=== PATIENT | male | born 1960 | race Caucasian/White ===

== ENCOUNTER → 2020-10-22 09:42 | Outpatient (BNVA) | payer BC, SELFPAY | PROVIDERS: PCP Internal Medicine Medical Oncology; Visit Provider Internal Medicine | DX: Z76.89 Persons encountering health services in other specified circumstances (principal) ==

== ENCOUNTER → 2020-12-10 10:21 | Outpatient (BNVA) | payer BC, SELFPAY | PROVIDERS: PCP Internal Medicine Medical Oncology; Referring Provider Internal Medicine Medical Oncology; Visit Provider Internal Medicine | DX: Z76.89 Persons encountering health services in other specified circumstances (principal) ==

== ENCOUNTER → 2020-12-18 09:44 | Outpatient (REF) | payer BC, SELFPAY | LOC: HO.SL 09:44 | PROVIDERS: Visit Provider Internal Medicine | DX: Z13.89 Encounter for screening for other disorder (principal) ==

== ENCOUNTER → 2021-02-05 10:34 | Outpatient (BNVA) | payer BC, SELFPAY | PROVIDERS: PCP Internal Medicine Medical Oncology; Visit Provider Internal Medicine | DX: G47.33 Obstructive sleep apnea (adult) (pediatric) (principal); R60.0 Localized edema; E66.9 Obesity, unspecified; Z79.899 Other long term (current) drug therapy | CPT/HCPCS: 95806 ==

== ENCOUNTER → 2021-05-04 15:16 | Outpatient (BNVA) | payer BC, SELFPAY | PROVIDERS: PCP Internal Medicine Medical Oncology; Visit Provider Internal Medicine ==

== ENCOUNTER → 2021-11-03 08:51 | Outpatient (BNVA) | payer BC, SELFPAY | PROVIDERS: PCP Internal Medicine Medical Oncology; Visit Provider Internal Medicine ==

== ENCOUNTER → 2022-11-24 09:47 | Outpatient (BNVA) | payer BC, SELFPAY | PROVIDERS: PCP Internal Medicine Medical Oncology; Visit Provider Internal Medicine | DX: G47.33 Obstructive sleep apnea (adult) (pediatric) (principal) ==

== ENCOUNTER → 2023-05-19 09:45 | Outpatient (BNVA) | payer BC, SELFPAY | PROVIDERS: PCP Internal Medicine Medical Oncology; Visit Provider Internal Medicine ==

== ENCOUNTER 2023-08-09 14:12 | Emergency (ER) | payer BC, SELFPAY ==
--- NOTE | ~2023-08-09 | CT_ITS ---
EXAMINATION: CT HEAD WITHOUT CONTRAST CLINICAL INFORMATION: Hypertension. Headache. COMPARISON: None available. TECHNIQUE: Contiguous axial imaging was performed from the skull base to vertex without intravenous administration of contrast. This CT examination was performed using dose optimization techniques as appropriate, variously including the following: *Automated exposure control *Adjustment of mA and/or kV according to patient size (this includes techniques or standardized protocols for targeted exams where dose is matched to indication/reason for exam; i.e. extremities or head) *Use of iterative reconstruction technique DLP: 634 mGy-cm FINDINGS: There is no evidence of an extra-axial collection. There is no evidence of intra-axial or extra-axial. The ventricles and extra-axial CSF spaces are appropriate. There is nonspecific periventricular white matter disease. No mass, mass effect or infarct. Review of bone windows is normal. Visualized paranasal sinuses, mastoid air cells and middle ears are clear. There is a right skull base soft tissue lipoma. CT/CT head/brain wo IV con IMPRESSION: No acute findings. Mild nonspecific periventricular white matter disease.
--- NOTE | 2023-08-09 14:17 | ED.GENADULT ---
HPI - General Adult General Chief complaint: General Medical Stated complaint: HBP 228/124 Time Seen by Provider: 08/09/23 14:42 Source: patient and family Mode of arrival: ambulatory Limitations: no limitations History of Present Illness HPI narrative: 63 year old male PMHx ALLISON, obesity, LE edema, HTN. Presents to the ER with asymptomatic hypertension. He states his PCP changed him to atenolol recently. He denies headache change in vision chest pain shortness of breath nausea vomiting diarrhea falls or injuries Related Data Home Medications Medication Instructions Recorded Confirmed acetaminophen 325 mg tablet 650 mg PO Q4H PRN pain 10/22/20 05/19/23 amlodipine 10 mg tablet 10 mg PO DAILY 10/22/20 05/19/23 clotrimazole-betamethasone 1 applic topical 10/22/20 05/19/23 %-0.05 % topical cream flu vacc [id number] 6mos up(PF) 60 ml IM 10/22/20 05/19/23 mcg(15 mcgx4)/0.5 mL IM syringe lisinopril 40 mg tablet 40 mg PO DAILY 10/22/20 05/19/23 timolol maleate 0.5 % eye drops 1 drp ophthalmic (eye) BID 10/22/20 05/19/23 triamterene 37.5 1 tab PO QAM 10/22/20 05/19/23 mg-hydrochlorothiazide 25 mg tablet varicella-zoster glycoE [id number] IM 10/22/20 05/19/23 adj(PF) 50 mcg/0.5 mL IM susp, kit Allergies Allergy/AdvReac Type Severity Reaction Status Date / Time No Known Allergies Allergy Verified 05/19/23 10:00 Review of Systems Review of Systems: Review of systems: General: Patient denies any fever chills recent illness or falls Musculoskeletal: Denies back pain or body aches or other injuries HEENT: denies headache, runny nose, ear pain Respiratory: denies shortness of breath, cough Cardiovascular: no chest pain or palpitations : denies dysuria, frequency Abdomen: no nausea vomiting denies abdominal pain Extremities: no swelling, no pain Skin: no diaphoresis Yes all other systems are reviewed and are negative PMFSH Past Medical History Medical History Leg edema Obesity (BMI 30-39.9) ALLISON (obstructive sleep apnea) Social History Social History Alcohol intake: never Patient Tobacco Use Status: Never used Tobacco Smoked in Last 30 Days: No Use of substances other than those prescribed or required for medical reasons: No Physical Exam ED Vital Signs: Vital Signs - 24 hr 08/09/23 14:18 08/09/23 14:54 Temperature 98.3 F Pulse Rate 54 54 Respiratory Rate 18 18 Blood Pressure 242/113 H 239/116 H Pulse Oximetry 96 95 Oxygen Delivery Method Room Air Room Air BMI result Body Mass Index 39.3 Neurological exam: CN II- XII tested. Patient is alert and oriented to person place and time. Patient has no dysphagia or dysarthia, denies good vision in all four vision kinsey no nystagmus on exam, good strength to upper and lower extremities with normal reflexes to brachioradialis, wrist, patella and achilles.? Negative romberg, good finger to nose and heel to rivas.?? General: Well-appearing well-nourished in no signs of distress HEENT: Normocephalic atraumatic? Neck: No signs of JVD, no masses no tenderness or lymphadenopathy Cardiovascular: Regular rate and rhythm Respiratory: Clear to auscultation bilaterally Abdomen: Soft nontender no masses Extremities: Normal pedal pulses no signs of edema Skin: Dry warm no rashes Back: No tenderness full ROM Course Course Course Narrative: RME: 63yo M w/PMHx ALLISON, obesity, LE edema, HTN, c/o elevated BP 228/124 noted at dentist office [employer]. Reports compliance w/BP meds, & took them this morning. Admits BP meds recently changed, Amlodipine & Lisinopril d/c'd & started on Atenolol. Reports mild MIRANDA. Takes 81 ASA daily. denies CP/SOB BP 243/113 in triage EKG, Labs ordered Full HPI, ROS and PE to be performed by primary ED provider. Reevaluation(s) Reevaluation #1: 1526 CT x-ray and labs are all unremarkable I explained this patient needs follow-up with his primary care doctor he is going to follow up tomorrow I will discharge the patient home at this time. Medical Decision Making Medical Decision Making [facility] Narrative: 63-year-old asymptomatic hypertension patient is in no pain he does note that his blood pressure was elevated he is going to see his dentist today and was found elevated. Patient admits to recent change in his blood pressure reading. Patient would benefit from pulling the character early states he can see the primary care doctor tomorrow due to her drinking CV consultative emergently today. Difficult with patient going home as long as his CT scan labs are all negative which were ordered in triage. Differential Diagnosis Differential Diagnoses: The differential diagnosis associated with the presentation includes Differential includes but is not limited to intracranial hemorrhage brain mass like true mild dehydration change of medications ACS though all appear less likely Lab Data [facility] Lab Attestation statement: I reviewed the patient's lab results. 08/09/23 14:36 08/09/23 14:36 Labs: Lab Results 08/09/23 Range/Units 14:36 WBC 10.4 (4.8-10.8) X10*3/uL RBC 5.28 (4.60-5.80) X10*6/uL Hgb 16.0 (14.0-18.0) g/dl Hct 46.3 (42.0-52.0) % MCV 87.7 (80.0-98.0) fL MCH 30.3 (27.0-33.0) pg MCHC 34.6 (31.0-36.0) g/dl RDW 13.9 (11.0-16.0) % Plt Count 252 (160-400) X10*3/uL MPV 9.7 (9.4-12.4) fL Immature Gran % (Auto) 0.4 (0.0-0.4) % Neut % (Auto) 70.9 (45-73) % Lymph % (Auto) 17.1 L (20-40) % [place] % (Auto) 9.7 (2-11) % Eos % (Auto) 1.5 (0-4) % Baso % (Auto) 0.4 (0-2) % Lymph # (Auto) 1.8 (1.2-4.9) X10*3/uL [place] # (Auto) 1.0 (0.1-1.2) X10*3/uL Eos # (Auto) 0.2 (0.0-0.4) X10*3/uL Baso # (Auto) 0.0 (0.0-0.2) X10*3/uL Abs Immat Gran (auto) 0.04 H (0.00-0.03) X10*3/uL Absolute Neuts (auto) 7.3 (2.0-8.3) x10*3/uL Absolute Nucleated RBC 0.000 (0.0-0.012) X10*3/uL Nucleated RBC % (auto) 0.0 (0.0-0.2) /100WBC PT 12.4 (11.1-13.3) SEC INR 1.0 (0.9-1.1) Sodium 140 (135-145) mmol/L Potassium 3.9 (3.3-5.1) mmol/L Chloride 105 (96-108) mmol/L Carbon Dioxide 28 (22-29) mmol/L Anion Gap 11 L (12-20) BUN 12 (9-16) mg/dL Creatinine 0.95 (0.5-1.4) mg/dL Estim Creat Clear Calc 85.6 Estimated GFR > 60 Random Glucose 88 (60-115) mg/dL Calcium 10.0 (8.4-10.2) mg/dL Magnesium 2.3 (1.6-2.6) mg/dL Total Bilirubin 0.6 (0.0-1.0) mg/dL Direct Bilirubin 0.2 (0.0-0.5) mg/dL AST 21 (5-37) U/L ALT 19 (0-40) U/L Alkaline Phosphatase 69 (39-117) U/L Troponin I High Sens 3.9 (<3.5-35.0) ng/L Total Protein 7.6 (6.5-8.0) g/dL Albumin 4.0 (3.5-5.0) g/dL Independent Interpretation I performed an independent interpretation of an: CT Scan Discharge Plan Discharge Clinical Impression: Asymptomatic hypertension Patient Disposition: Home, Self-Care Instructions: How to Take a Blood Pressure (ED), Chronic Hypertension (ED), DASH Eating Plan (ED) Additional Instructions: You were seen in the emergency department after being found have an elevated blood pressure. In the emergency department you underwent testing including blood work and a CT scan. Which were are all unremarkable. If you have worsening headache chest pain or any other concerns please do not hesitate to come back to emergency department. Prescriptions: No Action lisinopril 40 mg tablet 40 mg PO DAILY amlodipine 10 mg tablet 10 mg PO DAILY triamterene-hydrochlorothiazid 37.5-25 mg tablet 1 tab PO QAM clotrimazole-betamethasone 1-0.05 % cream topical Fluzone Quad [id number] (PF) 60 mcg (15 mcg x 4)/0.5 mL syringe IM Shingrix (PF) 50 mcg/0.5 mL suspension for reconstitution IM timolol maleate 0.5 % drops 1 drp ophthalmic (eye) BID acetaminophen 325 mg tablet 650 mg PO Q4H PRN (Reason: pain)
[2023-08-09 14:18] VITALS: BP 242/113; PULSE 54; RESP 18; TEMP 36.8; O2SAT 96; BMI 39.3
--- NOTE | 2023-08-09 14:20 | ECG_ITS ---
Test Reason : HIGH BP Blood Pressure : / mmHG Vent. Rate : 054 BPM Atrial Rate : 054 BPM P-R Int : 176 ms QRS Dur : 150 ms QT Int : 466 ms P-R-T Axes : 064 -61 007 degrees QTc Int : 441 ms Sinus bradycardia Right bundle branch block Left anterior fascicular block Bifascicular block Minimal voltage criteria for LVH, may be normal variant ( R in aVL ) Abnormal ECG No previous ECGs available Referred By: Dot Cardona Electronically Signed By:WOOD MICHAUD
[2023-08-09 14:40] LABS: MANUAL DIFF FLAG NO
[2023-08-09 14:42] LABS: Basophils Percent Auto 0.4 % (0-2); Eosinophils Absolute Auto 0.2 X10*3/uL (0.0-0.4); Eosinophils Percent Auto 1.5 % (0-4); Hematocrit 46.3 % (42.0-52.0); Imm Gran Abs Auto 0.04 X10*3/uL (0.00-0.03); Imm Gran Pct Auto 0.4 % (0.0-0.4); Lymphocytes Absolute Auto 1.8 X10*3/uL (1.2-4.9); Lymphocytes Percent Auto 17.1 % (20-40); Mean Corpuscular HGB Conc 34.6 g/dl (31.0-36.0); Mean Corpuscular Hemoglobin 30.3 pg (27.0-33.0); Mean Corpuscular Volume 87.7 fL (80.0-98.0); Mean Platelet Volume 9.7 fL (9.4-12.4); Monocytes Percent Auto 9.7 % (2-11); Neutrophils Absolute Auto 7.3 x10*3/uL (2.0-8.3); Neutrophils Percent Auto 70.9 % (45-73); Platelet Count 252 X10*3/uL (160-400); Red Blood Count 5.28 X10*6/uL (4.60-5.80); Red Cell Distribution Width 13.9 % (11.0-16.0); White Blood Count 10.4 X10*3/uL (4.8-10.8)
[2023-08-09 14:54] VITALS: BP 239/116; PULSE 54; RESP 18; O2SAT 95
[2023-08-09 14:58] LABS: Alanine Aminotransferase 19 U/L (0-40); Alkaline Phosphatase 69 U/L (39-117); Anion Gap 11 (12-20); Aspartate Amino Transferase 21 U/L (5-37); Bilirubin Direct 0.2 mg/dL (0.0-0.5); Bilirubin Total 0.6 mg/dL (0.0-1.0); Blood Urea Nitrogen 12 mg/dL (9-16); Carbon Dioxide 28 mmol/L (22-29); Chloride 105 mmol/L (96-108); Creatinine Clr Calc Pharmacy 85.6; Estimated Glomerular Filt Rate > 60; Glucose Random 88 mg/dL (60-115); Magnesium 2.3 mg/dL (1.6-2.6); Potassium 3.9 mmol/L (3.3-5.1); Sodium 140 mmol/L (135-145); Total Protein 7.6 g/dL (6.5-8.0)
[2023-08-09 15:01] LABS: Troponin-I High Sensitivity 3.9 ng/L (<3.5-35.0)
[2023-08-09 15:05] LABS: Prothrombin Time 12.4 SEC (11.1-13.3)
[2023-08-09 15:41] VITALS: BP 213/112; PULSE 54; RESP 18; O2SAT 97
== END 2023-08-09 15:47 | disposition home or self-care (01) ==
PROVIDERS: Physician Assistant; Emergency Provider Student in an Organized Health Care Education/Training Program; PCP Internal Medicine Medical Oncology
DX: I10 Essential (primary) hypertension (principal); R51.9 Headache, unspecified; R60.0 Localized edema; E66.9 Obesity, unspecified; Z68.39 Body mass index [BMI] 39.0-39.9, adult; Z79.899 Other long term (current) drug therapy
CPT/HCPCS: 36415; 70450; 80048; 80076; 83735; 84484; 85025; 85610; 93005; 99284

== ENCOUNTER 2023-12-12 13:48 | Outpatient (AMB) | payer BC, SELFPAY ==
--- NOTE | 2023-12-12 14:05 | A.OFFVIS_ITS ---
Intake Vital Signs 12/12/23 14:06 Height 5 ft 4 in Weight 231 lb BMI 39.6 BP 130/90 H Blood Pressure Location Lt brachial Position Sitting Pulse 94 Pulse Source Pulse Oximeter Pulse Oximetry (%) 94 Oxygen Delivery Method Room Air Intake Visit Reasons: mel Intake Note: pt is here for follow up and states he is using his cpap okay, doing well. 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 Allergies No Known Allergies Allergy (Verified 12/12/23 14:22) Medication List - Last Reconciled 12/12/23 by Heena Felipe MD acetaminophen 650 mg PO Q4H PRN amlodipine 10 mg PO DAILY atenolol 100 mg PO DAILY clotrimazole-betamethasone 1-0.05 % appl topical flu vacc [id number] 6mos up(PF) mL IM lisinopril 40 mg PO DAILY timolol maleate 0.5% 1 drp ophthalmic (eye) BID triamterene-hydrochlorothiazid 37.5-25 mg 1 tab PO QAM varicella-zoster [id number] (PF) 50 mcg/0.5 mL IM Do you need a note to return to daycare/school/sports/work: No HPI mel HPI Details Earl is 63 years old gentleman grossly obese with diagnosis of obstructive sleep apnea. .He is here for 6 months follow-up He reports that he is using CPAP every night for at least 6 hours per night,. And sleeps well He has no issue with the CPAP mask or the device. 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 He has not been able to do much walking or other exercise so he has put on a few lb of weight. [facility] Medical History Leg edema MEL (obstructive sleep apnea) Obesity (BMI 30-39.9) Social History Alcohol intake: never Patient Tobacco Use Status: Never used Tobacco Review of Systems Const All systems reviewed & are unremarkable except as noted in HPI and below Eyes Reports no additional complaints ENT Reports no additional complaints Card Denies chest pain, Denies irregular heart rhythm, Reports leg edema (Mild) and Denies dyspnea on exertion Resp Denies cough, Denies dyspnea on exertion and Denies wheezing GI Reports no additional complaints Reports no additional complaints Musc Reports no additional complaints Skin/Breast Reports system reviewed and no additional complaints, except as documented Neuro Reports no additional complaints Endo Reports no additional complaints Aller/Immun Reports no additional complaints and Denies wheezing Physical Exam Vital Signs: Last Vital Signs Pulse 94 12/12/23 14:06 BP 130/90 H 12/12/23 14:06 Pulse Ox 94 12/12/23 14:06 Oxygen Delivery Method Room Air 12/12/23 14:06 BMI result Body Mass Index 39.6 No interval weight loss is noted Const General: healthy appearing, comfortable and no acute distress Orientation/consciousness: patient oriented x3 HEENT Head: Yes normal to inspection General nose exam: No nasal polyps present and No nasal discharge present Face and sinus: Yes sinuses nontender Mouth: oropharynx normal Throat: Yes posterior oropharynx normal Eyes General: appearance normal, both eyes and all related structures Neck Neck: Yes normal visual inspection, Yes no lymphadenopathy, Yes trachea midline and Yes no JVD Thyroid: Thyroid normal Chest Chest palpation & inspection: normal inspection of the chest, normal palpation of entire chest wall and no tenderness Resp Effort & Inspection: normal respiratory effort Auscultation: clear to auscultation bilaterally, no crackles and no wheezes Percussion: percussion normal Cardio Palpation: normal PMI Rate: regular rate Rhythm: regular rhythm Heart sounds: no gallops and no murmurs Peripheral pulses: Peripheral pulses 2+ throughout GI Palpation (GI): Soft to palpation, nontender, No hepatosplenomegaly present and no masses Auscultation: normal bowel sounds Back/Spine/Pelvis Thoracic/Lumbar Spine: thoracic and lumbar spine normal to inspection Skin General skin exam: no rashes or lesions noted Neuro General: patient oriented x3 and no focal motor deficits Cranial nerves: Yes CN's II-XII intact bilaterally Extrem General: Yes normal to inspection, Yes no calf tenderness and Yes edema (1 + pitting edema of legs ) Psych Appearance: grossly normal and well kempt Speech and movement: Normal speech and movement present Results Reviewed Results Reviewed: Compliance report not printed but according to his verbal report he use it every night with full compliance. There is no air leak and he sleeps well. Assessment & Plan Assessment & Plan (1) Obesity (BMI 30-39.9): Comment: Talked to him , about weight . He is of simple mind , will not be able to loose much weight . 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 Restrict salt intake and calories, and start walking daily . (2) MEL (obstructive sleep apnea): Comment: HE HAS BEEN USING CPAP REGULARLY EVERY NIGHT AND SLEEPS WELL. HAS HAD NO ISSUES WITH THE MASK OR CPAP MACHINE. COMPLIANCE IS 97% AND HE IS BENEFITING,. Code(s): G47.33 - Obstructive sleep apnea (adult) (pediatric) Plan: ADVISED TO CONTINUE USING THE CPAP EVERY NIGHT AND USE IT AT LEAST FOR 6 HOURS. INSTRUCTED TO TIGHTEN THE STRAPS SO THAT THE MASk DOES NOT SLIP OFF. ORDER TO RENEW HIS SUPPLIES IS BEING SENT. WILL RECHECK HIM OF TO 6 MONTHS. Coding Level of Care Code Est Pt Level 3 (42390) Diagnoses Obesity (BMI 30-39.9) E66.9 MEL (obstructive sleep apnea) G47.33
[2023-12-12 14:06] VITALS: BP 130/90; PULSE 94; O2SAT 94; BMI 39.6
== END 2023-12-12 14:28 | disposition home or self-care (01) ==
PROVIDERS: PCP Internal Medicine Medical Oncology; Referring Provider Internal Medicine Medical Oncology; Visit Provider Internal Medicine
DX: E66.9 Obesity, unspecified (principal); G47.33 Obstructive sleep apnea (adult) (pediatric)
CPT/HCPCS: 99213

== ENCOUNTER → 2023-12-12 13:48 | Outpatient (BNVA) | payer BC, SELFPAY | PROVIDERS: PCP Internal Medicine Medical Oncology; Visit Provider Internal Medicine ==

== ENCOUNTER 2024-06-11 14:03 | Outpatient (AMB) | payer MEDICARE, SELFPAY ==
--- NOTE | 2024-06-11 14:07 | MHC.OFFVIS ---
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 Bob 64 years old gentleman, who used to work with an [email or web address] company is now retired , as his company moved to [place]. He is home mostly, somewhat sedentary, but keeps him busy in doing housework. He uses CPAP very regularly every night, except on some nights with he falls asleep before putting on the mask. He has no issue with the CPAP device are CPAP mask. He is aware of the fact that there is some air leak at night, and he tries to adjust the straps. [facility] Medical History Leg edema MEL (obstructive sleep apnea) Obesity (BMI 30-39.9) Social History Alcohol intake: never Patient Tobacco Use Status: Never used Tobacco Review of Systems Const All systems reviewed & are unremarkable except as noted in HPI and below Eyes Reports no additional complaints ENT Reports no additional complaints Card Denies chest pain, Denies irregular heart rhythm, Reports leg edema (Mild) and Denies dyspnea on exertion Resp Denies cough, Denies dyspnea on exertion and Denies wheezing GI Reports no additional complaints Reports no additional complaints Musc Reports no additional complaints Skin/Breast Reports system reviewed and no additional complaints, except as documented Neuro Reports no additional complaints Endo Reports no additional complaints Aller/Immun Reports no additional complaints and Denies wheezing Physical Exam No interval weight loss is noted Const General: healthy appearing, comfortable and no acute distress Orientation/consciousness: patient oriented x3 HEENT Head: Yes normal to inspection General nose exam: No nasal polyps present and No nasal discharge present Face and sinus: Yes sinuses nontender Mouth: oropharynx normal Throat: Yes posterior oropharynx normal Eyes General: appearance normal, both eyes and all related structures Neck Neck: Yes normal visual inspection, Yes no lymphadenopathy, Yes trachea midline and Yes no JVD Thyroid: Thyroid normal Chest Chest palpation & inspection: normal inspection of the chest, normal palpation of entire chest wall and no tenderness Resp Effort & Inspection: normal respiratory effort Auscultation: clear to auscultation bilaterally, no crackles and no wheezes Percussion: percussion normal Cardio Palpation: normal PMI Rate: regular rate Rhythm: regular rhythm Heart sounds: no gallops and no murmurs Peripheral pulses: Peripheral pulses 2+ throughout GI Palpation (GI): Soft to palpation, nontender, No hepatosplenomegaly present and no masses Auscultation: normal bowel sounds Back/Spine/Pelvis Thoracic/Lumbar Spine: thoracic and lumbar spine normal to inspection Skin General skin exam: no rashes or lesions noted Neuro General: patient oriented x3 and no focal motor deficits Cranial nerves: Yes CN's II-XII intact bilaterally Extrem General: Yes normal to inspection, Yes no calf tenderness and Yes edema (1 + pitting edema of legs ) Psych Appearance: grossly normal and well kempt Speech and movement: Normal speech and movement present Results Reviewed Results Reviewed: Compliance report is reviewed. He has used 28/30 nights, 93%. Average use it per night 6 hours 16 minutes. Pressure used 14-15 cm. There is moderate amount of air leak. Residual AHI 6.6 Assessment & Plan Assessment & Plan (1) Obesity (BMI 30-39.9): Comment: He remains grossly obese BMI= 41.5 OTHERWISE HEALTHY LOOKING. Code(s): E66.9 - Obesity, unspecified Category: Medical Plan: Discussed with him about the weight issue. Now that he is retired he should join an exercise program, he should aim to walk about 2 miles every day, Cut down the intake of carbohydrates in the diet , and weigh himself at least once a week. (2) MEL (obstructive sleep apnea): Comment: He is a known case of obstructive sleep apnea which is well treated with the use of CPAP. He has been very compliant all these years, has no issue with the use of CPAP device CPAP mask. Currently his compliance is okay but his residual AHI is, 6.6 which is little high and this seems to be related to air leak. Code(s): G47.33 - Obstructive sleep apnea (adult) (pediatric) Category: Medical Plan: Patient was educated about his I residual AHI. I think he needs to minimize the air leak issue. He is advised to tighten the straps . Make sure to get new supplies at least every 6. Coding Level of Care Code Est Pt Level 3 (82806) Diagnoses Obesity (BMI 30-39.9) E66.9 MEL (obstructive sleep apnea) G47.33
[2024-06-11 14:08] VITALS: BP 130/80; PULSE 59; O2SAT 94; BMI 40.5
== END 2024-06-11 14:19 | disposition home or self-care (01) ==
PROVIDERS: PCP Internal Medicine Medical Oncology; Visit Provider Internal Medicine
DX: E66.9 Obesity, unspecified (principal); G47.33 Obstructive sleep apnea (adult) (pediatric)
CPT/HCPCS: 99213

== ENCOUNTER → 2024-06-11 14:03 | Outpatient (BNVA) | payer MEDICARE, SELFPAY | PROVIDERS: PCP Internal Medicine Medical Oncology; Visit Provider Internal Medicine | DX: G47.33 Obstructive sleep apnea (adult) (pediatric) (principal); E66.9 Obesity, unspecified; Z68.41 Body mass index [BMI] 40.0-44.9, adult | CPT/HCPCS: 99212 ==

== ENCOUNTER 2024-12-18 10:21 | Outpatient (AMB) | payer MEDICARE, MEDICAID, SELFPAY ==
[2024-12-18 10:28] VITALS: BP 130/82; PULSE 53; O2SAT 95; BMI 40.1
--- NOTE | 2024-12-18 10:28 | MHC.OFFVIS ---
Vital Signs 12/18/24 10:28 Height 5 ft 4 in Weight 233 lb 11.04 oz BMI 40.1 BP 130/82 Blood Pressure Location Rt brachial Position Sitting Pulse 53 Pulse Source Pulse Oximeter Pulse Oximetry (%) 95 Oxygen Delivery Method Room Air Intake Visit Reasons: Obstructive sleep apnea Intake Note: pt is here for follow up of ALLISON, need supply order sent. Supervisor Photoengraving Required: No Allergies No Known Allergies Allergy (Verified 12/18/24 10:54) Medication List - Last Reconciled 12/18/24 by Heena Felipe MD acetaminophen 650 mg PO Q4H PRN amlodipine 10 mg PO DAILY atenolol 100 mg PO DAILY clotrimazole-betamethasone 1-0.05 % appl topical flu vacc [id number] 6mos up(PF) mL IM lisinopril 40 mg PO DAILY timolol maleate 0.5% 1 drp ophthalmic (eye) BID triamterene-hydrochlorothiazid 37.5-25 mg 1 tab PO QAM varicella-zoster [id number] (PF) 50 mcg/0.5 mL IM Do you need a note to return to daycare/school/sports/work: No HPI HPI Obstructive sleep apnea: Details: This 64 years old very pleasant retired gentleman is a case of morbid obesity and obstructive sleep apnea. .He is here for his 6 months follow-up He uses CPAP regularly every night. Missed 1 night in the whole month because he had some sinus congestion. He sleeps good at least for 6 hours every night. Denies daytime sleepiness. Still remains grossly overweight. Now that he is retired he has join the [employer] exercise program, and expected to lose some weight. [facility] Medical History Leg edema ALLISON (obstructive sleep apnea) Obesity (BMI 30-39.9) Social History Alcohol intake: never Patient Tobacco Use Status: Never used Tobacco Review of Systems Const All systems reviewed & are unremarkable except as noted in HPI and below Eyes Reports no additional complaints ENT Reports no additional complaints Card Denies chest pain, Denies irregular heart rhythm, Reports leg edema (Mild) and Denies dyspnea on exertion Resp Denies cough, Denies dyspnea on exertion and Denies wheezing GI Reports no additional complaints Reports no additional complaints Musc Reports no additional complaints Skin/Breast Reports system reviewed and no additional complaints, except as documented Neuro Reports no additional complaints Endo Reports no additional complaints Aller/Immun Reports no additional complaints and Denies wheezing Physical Exam Vital Signs: Last Vital Signs Pulse 53 12/18/24 10:28 BP 130/82 12/18/24 10:28 Pulse Ox 95 12/18/24 10:28 Oxygen Delivery Method Room Air 12/18/24 10:28 BMI result Body Mass Index 40.1 No interval weight loss is noted Const General: healthy appearing, comfortable and no acute distress Orientation/consciousness: patient oriented x3 HEENT Head: Yes normal to inspection General nose exam: No nasal polyps present and No nasal discharge present Face and sinus: Yes sinuses nontender Mouth: oropharynx normal Throat: Yes posterior oropharynx normal Eyes General: appearance normal, both eyes and all related structures Neck Neck: Yes normal visual inspection, Yes no lymphadenopathy, Yes trachea midline and Yes no JVD Thyroid: Thyroid normal Chest Chest palpation & inspection: normal inspection of the chest, normal palpation of entire chest wall and no tenderness Resp Effort & Inspection: normal respiratory effort Auscultation: clear to auscultation bilaterally, no crackles and no wheezes Percussion: percussion normal Cardio Palpation: normal PMI Rate: regular rate Rhythm: regular rhythm Heart sounds: no gallops and no murmurs Peripheral pulses: Peripheral pulses 2+ throughout GI Palpation (GI): Soft to palpation, nontender, No hepatosplenomegaly present and no masses Auscultation: normal bowel sounds Back/Spine/Pelvis Thoracic/Lumbar Spine: thoracic and lumbar spine normal to inspection Skin General skin exam: no rashes or lesions noted Neuro General: patient oriented x3 and no focal motor deficits Cranial nerves: Yes CN's II-XII intact bilaterally Extrem General: Yes normal to inspection, Yes no calf tenderness and Yes edema (1 + pitting edema of legs ) Psych Appearance: grossly normal and well kempt Speech and movement: Normal speech and movement present Results Reviewed Results Reviewed: Compliance report reviewed hand he has used 28/30 nights,. 93% Average use it per night 6 hours 0 minute. Pressure used 19 cm. There is not much air leak. Residual AHI is still 10.3 Assessment & Plan Assessment & Plan (1) Obesity (BMI 30-39.9): Comment: He remains grossly obese BMI= 40.1, OTHERWISE HEALTHY LOOKING. Code(s): E66.9 - Obesity, unspecified Category: Medical Plan: Discussed about his, weight, advised to reduce. the intake of calories Encouraged to do regular exercises at the [employer], and encouraged to lose at least 10 lb by next visit. (2) ALLISON (obstructive sleep apnea): Comment: He is a known case of obstructive sleep apnea which is well treated with the use of CPAP. He has been very compliant all these years, has no issue with the use of CPAP device CPAP mask. Currently his compliance is okay but his residual AHI is, 10.3 which is little high and this seems to be related to air leak. Code(s): G47.33 - Obstructive sleep apnea (adult) (pediatric) Category: Medical Plan: Advised to tighten the straps, . To minimize air leak Advised to keep on using the CPAP regularly. Revisit in 6 months. Coding Level of Care Code Est Pt Level 3 (16543) Diagnoses Obesity (BMI 30-39.9) E66.9 ALLISON (obstructive sleep apnea) G47.33
== END 2024-12-18 10:55 | disposition home or self-care (01) ==
PROVIDERS: PCP Internal Medicine Medical Oncology; Visit Provider Internal Medicine
DX: E66.9 Obesity, unspecified (principal); G47.33 Obstructive sleep apnea (adult) (pediatric)
CPT/HCPCS: 99213

== ENCOUNTER → 2024-12-18 10:21 | Outpatient (BNVA) | payer MEDICARE, SELFPAY | PROVIDERS: PCP Internal Medicine Medical Oncology; Visit Provider Internal Medicine | DX: G47.33 Obstructive sleep apnea (adult) (pediatric) (principal); E66.01 Morbid (severe) obesity due to excess calories; Z68.41 Body mass index [BMI] 40.0-44.9, adult | CPT/HCPCS: 99212 ==

== ENCOUNTER 2025-05-03 10:42 | Inpatient (IN) | payer MEDICARE, SELFPAY ==
[2025-05-03] VITALS (10 sets, daily range): BP systolic 123–183; BP diastolic 58–90; PULSE 42–55; RESP 15–24; TEMP 36.2–36.6; O2SAT 86–93; BMI 39.2
--- NOTE | ~2025-05-03 | MR_ITS ---
CLINICAL HISTORY: Right facial droop, dysarthria MR brain without contrast. COMPARISON: CT angiogram head and neck dated 05/03/25 at 13:14 EDT FINDINGS: No abnormal diffusion restriction in the brain parenchyma or extra-axial spaces. No evidence of mass, mass effect or midline shift. No intracranial hemorrhage or abnormal extra-axial fluid collection. No evidence of hydrocephalus. The basilar cisterns are patent. Cerebellar hemispheres and cerebellar vermis are normal. Fourth ventricle is normal. No brainstem abnormality is identified. Intracranial flow voids are patent. Trace amount of fluid present at the base of the mastoid air cells bilaterally. Paranasal sinuses are clear. IMPRESSION: 1. No acute intracranial findings. This document has been electronically signed by: Bryan Singleton MD on 05/03/2025 18:16:41
--- NOTE | ~2025-05-03 | US_ITS ---
CLINICAL HISTORY: + swelling, hypoxia Venous duplex ultrasound bilateral lower extremity COMPARISON: None FINDINGS: The visualized deep veins are fully compressible with normal Doppler color flow and spectral tracings. No popliteal cyst. IMPRESSION: 1. Negative for bilateral lower extremity deep vein thrombosis. This document has been electronically signed by: Bryan Singleton MD on 05/03/2025 16:54:20
--- NOTE | ~2025-05-03 | XR_ITS ---
EXAMINATION: XR CHEST CLINICAL INFORMATION: SOB COMPARISON: None available. TECHNIQUE: 2 views of the chest were obtained. FINDINGS: Cardiac silhouette is mildly enlarged. Pulmonary vasculature is mildly prominent, more on the right. Findings linear density projecting from the right hilum likely represents minimal atelectasis. There is also mild fullness of the right hilum. Linear densities in the lateral mid third to lower third left lung zone are also present, likely subsegmental atelectasis. Posterior costophrenic angles are blunted. Thoracic spine demonstrate multilevel degenerative disc disease with disc space narrowing and osteophytes. XR/XR chest 2V IMPRESSION: Mild cardiomegaly and pulmonary vascular congestion with trace pleural effusions. Linear subsegmental atelectasis. Electronically signed by: Nikko Woodward MD 05/03/2025 12:34 PM EDT
--- NOTE | ~2025-05-03 | CT_ITS ---
EXAMINATION: CT ANGIOGRAM HEAD AND NECK CLINICAL INFORMATION: Right-sided facial droop and slurred speech. COMPARISON: None available. TECHNIQUE: Noncontrast axial imaging of the head was performed. This was followed by test bolus sequences and head and neck intravenous bolus administration 70 mL of Omnipaque 350. Helical imaging was performed in the axial plane from the aortic arch to the skull vertex. The data was processed at the nuclear medicine pet ct technologist's workstation for generation of MIP sequences. Angled MIPs and volume rendered reformatted images were also generated at an offline 3D workstation. Stenoses are assessed in accordance with NASCET criteria unless otherwise indicated. This CT examination was performed using dose optimization techniques as appropriate, variously including the following: *Automated exposure control *Adjustment of mA and/or kV according to patient size (this includes techniques or standardized protocols for targeted exams where dose is matched to indication/reason for exam; i.e. extremities or head) *Use of iterative reconstruction technique FINDINGS: NONCONTRAST HEAD CT: There is no evidence of intracranial hemorrhage or extra-axial fluid collection. There is no mass effect, or edema. No CT evidence of acute territorial infarct. Ventricles, sulci, and cisterns are normal in size and configuration for patient age. No hydrocephalus. No midline shift. No significant white matter abnormalities. Globes and orbital contents image normally. No extracranial soft tissue abnormalities. The paranasal sinuses, mastoid air cells, and tympanic cavities are normally aerated. Cerumen impaction in both EACs. No suspicious bony abnormalities. NECK CTA: -AORTIC ARCH: Normal in caliber. Mild atheromatous calcification. Three-vessel branching pattern. -GREAT VESSEL ORIGINS: Widely patent. No stenosis. -RIGHT COMMON CAROTID ARTERY: Normal in course and caliber to the level of the bifurcation. -CERVICAL RIGHT INTERNAL CAROTID ARTERY: Normal opacification without focal stenosis or occlusion. -LEFT COMMON CAROTID ARTERY: Normal in course and caliber to the level of the bifurcation. -CERVICAL LEFT INTERNAL CAROTID ARTERY: Normal opacification without focal stenosis or occlusion. -CERVICAL RIGHT VERTEBRAL ARTERY: Normal origin. Normal in course and caliber into the skull base. -CERVICAL LEFT VERTEBRAL ARTERY: Mildly dominant. Normal origin. Normal in course and caliber into the skull base. OTHER, SOFT TISSUES: -No lymphadenopathy or mass. No abnormal fluid collection or soft tissue swelling. -Normal thyroid. -Imaged superior mediastinal structures normal. -Imaged lung apices demonstrate a small left and tiny right pleural effusion. There is mosaic attenuation of the lung parenchyma, consistent with mild interstitial pulmonary edema and expiratory state. CTA OF THE BRAIN: INTRACRANIAL INTERNAL CAROTID ARTERIES: -Calcific atherosclerotic disease of the left intracranial ICA without significant stenosis or aneurysm. -There is a moderate grade stenosis in the ophthalmic segment right ICA due to calcified plaque (series 10, image 343). No aneurysm or additional stenosis. -RIGHT ANTERIOR CEREBRAL ARTERY: Normal A1 segment.. Normal arborization of the distal segments. -LEFT ANTERIOR CEREBRAL ARTERY: Normal A1 segment.. Normal arborization of the distal segments. -ANTERIOR COMMUNICATING ARTERY: Normal. -RIGHT MIDDLE CEREBRAL ARTERY: Normal M1 segment of the MCA without focal stenosis or occlusion. Normal bifurcation. Normal arborization of the distal segments. -LEFT MIDDLE CEREBRAL ARTERY: Normal M1 segment of the MCA without focal stenosis or occlusion. Normal bifurcation. Normal arborization of the distal segments. -RIGHT VERTEBRAL ARTERY V4: Normal in course and caliber. -LEFT VERTEBRAL ARTERY V4: Normal in course and caliber. -BASILAR ARTERY: Normal without focal stenosis or occlusion. Normal appearance of the proximal superior cerebellar arteries. Normal basilar tip. -RIGHT POSTERIOR CEREBRAL ARTERY: Normal P1 segment. Normal opacification of the distal POTTERY STRIPER segments. -LEFT POSTERIOR CEREBRAL ARTERY: Normal P1 segment. Normal opacification of the distal POTTERY STRIPER segments. -POSTERIOR COMMUNICATING ARTERIES: Diminutive and not well seen bilaterally. Normal opacification of the superior sagittal, straight, transverse, and sigmoid sinuses. No venous thrombosis. No space-occupying hemorrhage or definite evolving infarct. CT/CT angio head neck IMPRESSION: NONCONTRAST HEAD CT: 1. No intracranial hemorrhage or mass effect. No CT evidence of acute territorial infarct. CTA NECK: 1. No evidence of significant stenosis, occlusion, dissection, or aneurysm in the major cervical arterial vasculature. 2. There is a small left and tiny right pleural effusion in the imaged thorax. There are findings in the imaged lungs suggesting interstitial pulmonary edema. CTA HEAD: 1. No evidence of high-grade stenosis, occlusion, dissection, or aneurysm in the major intracranial arterial vasculature. 2. There is an approximate 50% stenosis of the right ICA ophthalmic segment due to calcified plaque. 3. Patent cortical and dural venous sinuses. Electronically signed by: Thomas Solis MD 05/03/2025 02:19 PM EDT
--- NOTE | 2025-05-03 07:00 | CA_ITS ---
Transthoracic Echocardiogram Patient (Last, First, Middle): Earl Bob M Gender: Male Date of : 1960 Age: 64 Procedure Date: 05/06/2025 Procedure Type: Transthoracic Echocardiogram [place] [facility] [place]: 167.64 cm Weight: 109.77 kg BSA: 2.17 m2 Heart Rate: bpm BP: 164 / 92 mmHg Ornamental Machine Operator: JORGE Galeano MD: Reagan MARTINEZ Mineral Engineer: Audie Harman MD Symptoms: New onset CHF, ?CVA Study Quality: Adequate ECG Rhythm: Sinus Conclusions: - 1. Normal LV ejection fraction with impaired relaxation filling pattern 2. Mildly dilated left atrium next 3. Possible PFO present 4. Normal RV systolic pressure with mildly elevated right atrial pressures 5. No gross pericardial effusion Findings Left Ventricle Normal left ventricular size and systolic function. There is mildly increased left ventricular wall thickness. The visually estimated ejection fraction is between 65-70%. Spectral Doppler is indicative of an impaired relaxation filling pattern. E/E prime ratio is between 8 and 15 consistent with indeterminate filling pressures. Right Ventricle Normal right ventricular cavity size and systolic function. Atria The left atrium is mildly dilated. Bubble study performed. by color Doppler there appears to be possible left to right shunt on subcostal views. Consider MAYE. The right atrium is likely dilated. Aortic Valve Normal aortic valve structure and function. There is no aortic valve stenosis. There is no aortic valve regurgitation. Mitral Valve Normal mitral valve structure and function. There is no mitral valve regurgitation. There is no mitral valve stenosis. Pulmonic Valve The pulmonic valve was not well visualized. Tricuspid Valve Likely normal tricuspid valve structure and function. There is mild tricuspid valve regurgitation. Mildly elevated right atrial pressure. There is no evidence of pulmonary hypertension. Great Vessels All visible segments of the aorta are normal in size. The pulmonary artery was not well visualized. Venous The inferior vena cava is moderately dilated and collapses greater than 50% with inspiration. Pericardium/Pleural There is no evidence of pericardial effusion. Prior Study Comparison no prior study done in the last 5 years for comparison Recommendations, Care & Conclusions Consider a MAYE if clinically appropriate. Measurements 2D Linear Measurements IVSd: 1.27 0.6-0.9/0.6-1.0 cm LVIDd: 5.36 3.9-5.3/4.2-5.9 cm LVIDd Index: 2.47 2.4-3.2/2.2-3.1 cm/m2 LVIDs: 2.95 2.0-3.6 cm LVPWd: 1.42 0.7-1.1 cm LA Diam: 3.80 2.7-3.8/3.0-4.0 cm LAIDs Index: 1.75 1.5-2.3 cm/m2 LV Mass: 382.38 67-162/88-224 g LV Mass Index: 176.21 43-95/49-115 g/m2 LVOT Diam: 2.10 3.0+(-)1.3 cm 2D Systolic Function EF 4C: 67.90 >55% EF 2C: 72.40 >55% EF BiP: 70.40 >55% Mitral Valve MV Pk E: 0.92 MV PK A: 1.05 MV Decel Time: 241.00 E/A: 0.90 E'Lateral: 8.38 E'Medial: 5.55 E/E' Med: 16.60 E/E' Lat: 11.00 PHT: 70.00 MVA PHT: 3.14 Decel Leslie: 3.84 Aortic Valve AoV Pk Richy: 2.55 AoV Mn Richy: 1.74 AoV VTI: 0.57 AoV Pk Grad: 26.00 Aov Mn Grad: 14.00 CLIFF Cont.VTI: 1.87 LVOT LVOT Pk Richy: 1.51 LVOT Mn Richy: 1.02 LVOT VTI: 0.31 LVOT Pk Grad: 9.00 LVOT Mn Grad: 5.00 LVOT Diam: 2.10 LVOT Area: 3.46 Diastolic Function MV Pk E: 0.92 MV Pk A: 1.05 E/A: 0.90 E'Medial: 5.55 E/E' Med: 16.60 E' Laterial: 8.38 E/E' Lat: 11.00 Right Ventricle TAPSE (mm): 30.00 TVS' Richy: 16.80 Tricuspid Valve TR Pk Richy: 2.55 TR Pk Grad: 26.00 RA Press: 8.00 RVSP: 34.00 Great Vessels Aorta Sinus of Valsalva: 3.00 2.0-3.5 cm Ao Asc: 3.50 2.1-3.4 cm Ao Arch: 3.10 Pulmonary Valve PV Pk Richy: 1.10 Peak PV Grad: 5.00 Updated in Other Vendor System with Status of Final Audie Harman MD electronically signed on 05/06/2025 12:19:28 PM with status of Final
--- NOTE | 2025-05-03 11:01 | ED_ITS ---
HPI - General Adult General Chief complaint: General Medical Stated complaint: ? Stroke Time Seen by Provider: 05/03/25 11:00 History of Present Illness ED Provider: Dr. Pulido HPI narrative: 64 y/o M patient; PMH ALLISON on CPAP, HTN, obesity; presents from PCP office with report of increased shortness of breath and increased lower extremity edema for a while . The patient states while at his PCP office he was noticed to have significantly slurred speech and a new facial droop also for a while . He lives in a house full of people but states it had not been noticed. He denies arm/leg weakness/numbness/tingling. The patient otherwise denies: fever or chills, cough/congestion, chest pain, nausea/vomiting, abdominal pain, syncope. He denies any smoking history. He denies drinking alcohol. He denies any falls or trauma. Contrary to triage note patient is not on blood thinners, he does take a baby aspirin. Related Data Home Medications ?Medication ?Instructions ?Recorded ?Confirmed acetaminophen 325 mg tablet 650 mg PO Q4H PRN pain 10/22/20 12/18/24 amlodipine 10 mg tablet 10 mg PO DAILY 10/22/20 12/18/24 clotrimazole-betamethasone 1 applic topical 10/22/20 06/11/24 %-0.05 % topical cream flu vacc [id number] 6mos up(PF) 60 ml IM 10/22/20 06/11/24 mcg(15 mcgx4)/0.5 mL IM syringe lisinopril 40 mg tablet 40 mg PO DAILY 10/22/20 12/18/24 timolol maleate 0.5 % eye drops 1 drp ophthalmic (eye) BID 10/22/20 12/18/24 triamterene 37.5 1 tab PO QAM 10/22/20 12/18/24 mg-hydrochlorothiazide 25 mg tablet varicella-zoster glycoE [id number] IM 10/22/20 06/11/24 adj(PF) 50 mcg/0.5 mL IM susp, kit atenolol 100 mg tablet 100 mg PO DAILY 12/12/23 12/18/24 Allergies Allergy/AdvReac Type Severity Reaction Status Date / Time No Known Allergies Allergy Verified 05/03/25 10:49 Review of Systems 2 Review of Systems: Yes all other systems are reviewed and are negative Neurologic: Denies Sensory deficit (Neuro) [facility] Past Medical History Attestation statement: The following information was validated with the patient. Source: old records reviewed Medical History Leg edema ALLISON (obstructive sleep apnea) Obesity (BMI 30-39.9) Social History Social History Alcohol intake: never Patient Tobacco Use Status: Never used Tobacco Smoked in Last 30 Days: No Use of substances other than those prescribed or required for medical reasons: No Advance Directives: No Advance Directives Information Provided: Yes Do you have a plan to hurt others: No Plan Physical Exam ED Vital Signs: Vital Signs - 24 hr 05/03/25 10:48 05/03/25 10:49 05/03/25 10:58 Temperature 97.8 F Pulse Rate 49 L 49 L Respiratory Rate 24 H 15 Blood Pressure 167/83 H 123/58 L Pulse Oximetry 86 L 93 93 Oxygen Delivery Method Room Air Nasal Cannula Nasal Cannula Oxygen Flow Rate 2 2 05/03/25 14:43 Temperature Pulse Rate Respiratory Rate Blood Pressure 183/89 H Pulse Oximetry Oxygen Delivery Method Oxygen Flow Rate BMI result Body Mass Index 39.2 Patient is afebrile and hemodynamically stable. He was noted to be hypoxic to 86% on RA and improved on 2L NC. Const General: cooperative Orientation/consciousness: patient oriented x3 HENMT Head: Yes normal to inspection and Yes atraumatic Eyes General: appearance normal, both eyes and all related structures Pupils: Equal, round and reactive pupils present EOM: EOMs intact bilaterally Neck Neck: Yes normal visual inspection, Yes full ROM, Yes supple and No tender Chest Chest palpation & inspection: normal inspection of the chest and normal palpation of entire chest wall Resp Effort & Inspection: normal respiratory effort, able to speak in complete sentences, no cough and no respiratory distress Auscultation: clear to auscultation bilaterally Cardio Rate: regular rate Rhythm: regular rhythm Peripheral pulses: Peripheral pulses 2+ throughout GI Inspection: Yes normal to inspection, No Abdominal wall edema and No distended Palpation (GI): Soft to palpation, not firm, nontender, no guarding and not rigid Auscultation: normal bowel sounds Back/Spine/Pelvis Back: No back tenderness Neuro Other: + Right sided facial droop Slurred speech General: patient oriented x3 and gait normal Cranial nerves: Yes Equal, round and reactive pupils present, Yes Bilaterally intact EOM present and Yes Nystagmus not present Cognition (Neuro): normal cognition Motor exam (neuro): 5/5 motor strength present throughout Sensory Exam: No Sensory deficit (Neuro) Coordination: [id number] test normal, [id number] test normal and Normal rapid alternating movements of the distal upper extremity present (Neuro) Extrem Other: 2 - 3+ bilateral lower extremity edema Course Course Course Narrative: Patient is afebrile and hemodynamically stable. Providing 2L NC for mild hypoxia on RA. Will obtain EKG, CXR, and laboratory studies. Will obtain CTA Head/Neck due to suspect CVA of unknown timeline. Patient is outside window for TNK due to unknown onset of action. NIHSS is 3 for mild to moderate dysarthria and partial paralysis face. I suspect patient will require admission for CVA w/u. Labs reviewed. No significant anemia or leukocytosis. VBG is without acidosis. Troponin is flat. BNP is minimally elevated. No prior for comparison. COVID/Flu/RSV negative. CXR reviewed. Noted mild cardiomegaly and pulmonary vascular congestion with trace pleural effusions. Linear subsegmental atelectasis. CTA Head/Neck unremarkable for acute process. Hypoxia could be due to undiagnosed mild CHF with elevated BNP, lower extremity edema, and signs of pulmonary vascular congestion. Will trial a dose of Lasix 20mg IV. Plan: Admit to hospitalist for MRI Brain and hypoxia evaluation Condition: Stable Medications Administered Discontinued Medications Generic Name Dose Route Start Last Admin Trade Name Leslie PRN Reason Stop Dose Admin Furosemide 20 mg 05/03/25 14:33 05/03/25 14:43 Furosemide 20 Mg/2 Ml Vial IVPUSH 05/03/25 14:34 20 mg ONCE ONE Administration Protocol Iohexol 70 ml 05/03/25 13:39 05/03/25 13:39 Iohexol 350 Mg/Ml 100 Ml Infus..Btl IV 05/03/25 13:40 70 ml ONCE ONE Administration Medical Decision Making Lab Data 05/03/25 11:29 05/03/25 11:29 Labs: Lab Results 05/03/25 05/03/25 05/03/25 Range/Units 11:29 11:36 11:47 WBC 10.9 H (4.8-10.8) X10*3/uL RBC 5.09 (4.60-5.80) X10*6/uL Hgb 15.6 (14.0-18.0) g/dl Hct 44.7 (42.0-52.0) % MCV 87.8 (80.0-98.0) fL MCH 30.6 (27.0-33.0) pg MCHC 34.9 (31.0-36.0) g/dl RDW 14.9 (11.0-16.0) % Plt Count 228 (160-400) X10*3/uL MPV 9.3 L (9.4-12.4) fL Immature Gran % (Auto) 0.4 (0.0-0.4) % Neut % (Auto) 77.7 H (45-73) % Lymph % (Auto) 11.7 L (20-40) % [place] % (Auto) 8.6 (2-11) % Eos % (Auto) 1.4 (0-4) % Baso % (Auto) 0.2 (0-2) % Lymph # (Auto) 1.3 (1.2-4.9) X10*3/uL [place] # (Auto) 0.9 (0.1-1.2) X10*3/uL Eos # (Auto) 0.2 (0.0-0.4) X10*3/uL Baso # (Auto) 0.0 (0.0-0.2) X10*3/uL Abs Immat Gran (auto) 0.04 H (0.00-0.03) X10*3/uL Absolute Neuts (auto) 8.5 H (2.0-8.3) x10*3/uL Absolute Nucleated RBC 0.000 (0.0-0.012) X10*3/uL Nucleated RBC % (auto) 0.0 (0.0-0.2) /100WBC PT 12.2 (10.9-12.4) SEC INR 1.1 (0.9-1.1) VBG pH 7.36 (7.32-7.43) VBG pCO2 56 mmHg VBG pO2 82 mmHg VBG HCO3 32 H (22-26) mmol/L VBG O2 Saturation 95.0 % VBG Base Excess 5.5 mmol/L Sodium 140 (135-145) mmol/L Potassium 4.1 (3.3-5.1) mmol/L Chloride 101 (96-108) mmol/L Carbon Dioxide 31 H (22-29) mmol/L Anion Gap 12 (12-20) BUN 19 H (9-16) mg/dL Creatinine 0.93 (0.5-1.4) mg/dL Estim Creat Clear Calc 92.2 Estimated GFR > 60 Random Glucose 104 (60-115) mg/dL Lactic Acid 0.5 (0.5-2.0) mmol/L Calcium 9.7 (8.4-10.2) mg/dL Total Bilirubin 0.7 (0.0-1.0) mg/dL Direct Bilirubin 0.2 (0.0-0.5) mg/dL AST 31 (5-37) U/L ALT 25 (0-40) U/L Alkaline Phosphatase 78 (39-117) U/L Troponin I High Sens 3.8 (<3.5-35.0) ng/L B-Natriuretic Peptide 130 H (<100) pg/mL Total Protein 8.2 H (6.5-8.0) g/dL Albumin 4.4 (3.5-5.0) g/dL Lipase 26 (8-78) U/L Influenza Type A (PCR) NEGATIVE (Negative) Influenza Type B (PCR) NEGATIVE (Negative) RSV RNA Qual (PCR) NEGATIVE (Negative) SARS-CoV-2 RNA (RT-PCR) NEGATIVE (Negative) Independent Interpretation I performed an independent interpretation of an: EKG Interpretation: SB 51BPM with + RBBB, + LAFB. Compared to prior from Jul 2023 no significant abnormalities. Radiology Impression Discussion of test interpretation with radiology: I have reviewed the radiologist's reading. Radiologist Impression: EXAMINATION: XR CHEST CLINICAL INFORMATION: SOB COMPARISON: None available. TECHNIQUE: 2 views of the chest were obtained. FINDINGS: Cardiac silhouette is mildly enlarged. Pulmonary vasculature is mildly prominent, more on the right. Findings linear density projecting from the right hilum likely represents minimal atelectasis. There is also mild fullness of the right hilum. Linear densities in the lateral mid third to lower third left lung zone are also present, likely subsegmental atelectasis. Posterior costophrenic angles are blunted. Thoracic spine demonstrate multilevel degenerative disc disease with disc space narrowing and osteophytes. XR/XR chest 2V IMPRESSION: Mild cardiomegaly and pulmonary vascular congestion with trace pleural effusions. Linear subsegmental atelectasis. Electronically signed by: Nikko Woodward MD 05/03/2025 12:34 PM EDT RP Report Number: [id number]: Total DLP = 1481.00 mGy-cm EXAMINATION: CT ANGIOGRAM HEAD AND NECK CLINICAL INFORMATION: Right-sided facial droop and slurred speech. COMPARISON: None available. TECHNIQUE: Noncontrast axial imaging of the head was performed. This was followed by test bolus sequences and head and neck intravenous bolus administration 70 mL of Omnipaque 350. Helical imaging was performed in the axial plane from the aortic arch to the skull vertex. The data was processed at the distribution engineering technologist's workstation for generation of MIP sequences. Angled MIPs and volume rendered reformatted images were also generated at an offline 3D workstation. Stenoses are assessed in accordance with NASCET criteria unless otherwise indicated. This CT examination was performed using dose optimization techniques as appropriate, variously including the following: *Automated exposure control *Adjustment of mA and/or kV according to patient size (this includes techniques or standardized protocols for targeted exams where dose is matched to indication/reason for exam; i.e. extremities or head) *Use of iterative reconstruction technique FINDINGS: NONCONTRAST HEAD CT: There is no evidence of intracranial hemorrhage or extra-axial fluid collection. There is no mass effect, or edema. No CT evidence of acute territorial infarct. Ventricles, sulci, and cisterns are normal in size and configuration for patient age. No hydrocephalus. No midline shift. No significant white matter abnormalities. Globes and orbital contents image normally. No extracranial soft tissue abnormalities. The paranasal sinuses, mastoid air cells, and tympanic cavities are normally aerated. Cerumen impaction in both EACs. No suspicious bony abnormalities. NECK CTA: -AORTIC ARCH: Normal in caliber. Mild atheromatous calcification. Three-vessel branching pattern. -GREAT VESSEL ORIGINS: Widely patent. No stenosis. -RIGHT COMMON CAROTID ARTERY: Normal in course and caliber to the level of the bifurcation. -CERVICAL RIGHT INTERNAL CAROTID ARTERY: Normal opacification without focal stenosis or occlusion. -LEFT COMMON CAROTID ARTERY: Normal in course and caliber to the level of the bifurcation. -CERVICAL LEFT INTERNAL CAROTID ARTERY: Normal opacification without focal stenosis or occlusion. -CERVICAL RIGHT VERTEBRAL ARTERY: Normal origin. Normal in course and caliber into the skull base. -CERVICAL LEFT VERTEBRAL ARTERY: Mildly dominant. Normal origin. Normal in course and caliber into the skull base. OTHER, SOFT TISSUES: -No lymphadenopathy or mass. No abnormal fluid collection or soft tissue swelling. -Normal thyroid. -Imaged superior mediastinal structures normal. -Imaged lung apices demonstrate a small left and tiny right pleural effusion. There is mosaic attenuation of the lung parenchyma, consistent with mild interstitial pulmonary edema and expiratory state. CTA OF THE BRAIN: INTRACRANIAL INTERNAL CAROTID ARTERIES: -Calcific atherosclerotic disease of the left intracranial ICA without significant stenosis or aneurysm. -There is a moderate grade stenosis in the ophthalmic segment right ICA due to calcified plaque (series 10, image 343). No aneurysm or additional stenosis. -RIGHT ANTERIOR CEREBRAL ARTERY: Normal A1 segment.. Normal arborization of the distal segments. -LEFT ANTERIOR CEREBRAL ARTERY: Normal A1 segment.. Normal arborization of the distal segments. -ANTERIOR COMMUNICATING ARTERY: Normal. -RIGHT MIDDLE CEREBRAL ARTERY: Normal M1 segment of the MCA without focal stenosis or occlusion. Normal bifurcation. Normal arborization of the distal segments. -LEFT MIDDLE CEREBRAL ARTERY: Normal M1 segment of the MCA without focal stenosis or occlusion. Normal bifurcation. Normal arborization of the distal segments. -RIGHT VERTEBRAL ARTERY V4: Normal in course and caliber. -LEFT VERTEBRAL ARTERY V4: Normal in course and caliber. -BASILAR ARTERY: Normal without focal stenosis or occlusion. Normal appearance of the proximal superior cerebellar arteries. Normal basilar tip. -RIGHT POSTERIOR CEREBRAL ARTERY: Normal P1 segment. Normal opacification of the distal BOOKKEEPING TEACHER segments. -LEFT POSTERIOR CEREBRAL ARTERY: Normal P1 segment. Normal opacification of the distal BOOKKEEPING TEACHER segments. -POSTERIOR COMMUNICATING ARTERIES: Diminutive and not well seen bilaterally. Normal opacification of the superior sagittal, straight, transverse, and sigmoid sinuses. No venous thrombosis. No space-occupying hemorrhage or definite evolving infarct. CT/CT angio head neck IMPRESSION: NONCONTRAST HEAD CT: 1. No intracranial hemorrhage or mass effect. No CT evidence of acute territorial infarct. CTA NECK: 1. No evidence of significant stenosis, occlusion, dissection, or aneurysm in the major cervical arterial vasculature. 2. There is a small left and tiny right pleural effusion in the imaged thorax. There are findings in the imaged lungs suggesting interstitial pulmonary edema. CTA HEAD: 1. No evidence of high-grade stenosis, occlusion, dissection, or aneurysm in the major intracranial arterial vasculature. 2. There is an approximate 50% stenosis of the right ICA ophthalmic segment due to calcified plaque. 3. Patent cortical and dural venous sinuses. Electronically signed by: Thomas Solis MD 05/03/2025 02:19 PM EDT Discharge Plan Discharge Clinical Impression: Dysarthria, Facial droop, Hypoxia Patient Disposition: Admitted As Inpatient Print Language: Other
--- NOTE | 2025-05-03 11:04 | PC.NURSE ---
Pt comes to ED today from PCP office for concerns of R sided facial droop, intermittent garbled speech, and bilat lower extremity swelling. Pt reports these symptoms have been present for about 2 weeks and started around the same time. Denies and visual changes, difficulty swallowing/eating, or SOB. Pt with noted low O2 sats in Triage and requires supplemental O2. Sats are now at 94% on 2L O2 via NC. Pts speech is garbled and R sided droop to mouth visible. Pt is A&Ox3 and denies any pain at this time. Awaiting ED provider.
--- NOTE | 2025-05-03 11:05 | ECG_ITS ---
Test Reason : weakness Blood Pressure : */* mmHG Vent. Rate : 51 BPM Atrial Rate : 51 BPM P-R Int : 170 ms QRS Dur : 162 ms QT Int : 498 ms P-R-T Axes : 70 -54 16 degrees QTcB Int : 458 ms Sinus bradycardia Right bundle branch block Left anterior fascicular block Bifascicular block Abnormal ECG When compared with ECG of 09-Aug-2023 14:27, No significant change was found Referred By: Ruby Pulido Electronically Signed By: SNEHAL MILLARD
[2025-05-03 11:35] LABS: MANUAL DIFF FLAG NO
[2025-05-03 11:38] LABS: Basophils Percent Auto 0.2 % (0-2); Eosinophils Absolute Auto 0.2 X10*3/uL (0.0-0.4); Eosinophils Percent Auto 1.4 % (0-4); Hematocrit 44.7 % (42.0-52.0); Hemoglobin 15.6 g/dl (14.0-18.0); Imm Gran Abs Auto 0.04 X10*3/uL (0.00-0.03); Imm Gran Pct Auto 0.4 % (0.0-0.4); Lymphocytes Absolute Auto 1.3 X10*3/uL (1.2-4.9); Lymphocytes Percent Auto 11.7 % (20-40); Mean Corpuscular HGB Conc 34.9 g/dl (31.0-36.0); Mean Corpuscular Hemoglobin 30.6 pg (27.0-33.0); Mean Corpuscular Volume 87.8 fL (80.0-98.0); Mean Platelet Volume 9.3 fL (9.4-12.4); Monocytes Absolute Auto 0.9 X10*3/uL (0.1-1.2); Monocytes Percent Auto 8.6 % (2-11); Neutrophils Absolute Auto 8.5 x10*3/uL (2.0-8.3); Neutrophils Percent Auto 77.7 % (45-73); Platelet Count 228 X10*3/uL (160-400); Red Blood Count 5.09 X10*6/uL (4.60-5.80); Red Cell Distribution Width 14.9 % (11.0-16.0); White Blood Count 10.9 X10*3/uL (4.8-10.8)
[2025-05-03 11:41] LABS: VBG Base Excess 5.5 mmol/L; VBG HCO3 32 mmol/L (22-26); VBG pCO2 56 mmHg; VBG pH 7.36 (7.32-7.43); VBG pO2 82 mmHg
[2025-05-03 11:42] LABS: Venous Blood Gas Refer to POC result
[2025-05-03 11:51] LABS: INTERNATIONAL NORM RATIO 1.1 (0.9-1.1); Lactic Acid 0.5 mmol/L (0.5-2.0); Prothrombin Time 12.2 SEC (10.9-12.4)
[2025-05-03 11:58] LABS: B Type Natriuretic Peptide 130 pg/mL (<100)
[2025-05-03 11:59] LABS: Alanine Aminotransferase 25 U/L (0-40); Albumin Level 4.4 g/dL (3.5-5.0); Anion Gap 12 (12-20); Aspartate Amino Transferase 31 U/L (5-37); Bilirubin Direct 0.2 mg/dL (0.0-0.5); Bilirubin Total 0.7 mg/dL (0.0-1.0); Blood Urea Nitrogen 19 mg/dL (9-16); Calcium 9.7 mg/dL (8.4-10.2); Carbon Dioxide 31 mmol/L (22-29); Chloride 101 mmol/L (96-108); Creatinine Clr Calc Pharmacy 92.2; Estimated Glomerular Filt Rate > 60; Glucose Random 104 mg/dL (60-115); Lipase 26 U/L (8-78); Potassium 4.1 mmol/L (3.3-5.1); Sodium 140 mmol/L (135-145); Total Protein 8.2 g/dL (6.5-8.0); Troponin-I High Sensitivity 3.8 ng/L (<3.5-35.0)
--- OUTSIDE RECORDS SUMMARY | 2025-05-03 12:23 | XMS_ITS | Clinical Summary ---
Author Organization [facility], Address [address] [place] [address] [place] [address] Phone Care Team Providers Care Movie Editor Name Role Phone Dev Murray MD Primary Care Provider [phone] Allergies Active Allergy Reactions Criticality Noted Date Comments Pineapple 04/23/2020 Medications acetaminophen (TYLENOL) 325 MG tablet Take 650 mg by mouth every 4 (four) hours if needed Active aspirin (ST CHEIKH) 81 MG EC tablet Take 81 mg by mouth 1 (one) time each day Active timolol (BETIMOL) 0.5 % ophthalmic solution Administer 1 drop into both eyes 1 (one) time each day Active omega-3 (FISH OIL) 1200 MG capsule Take by mouth 1 (one) time each day Active triamterene-hyd roCHLOROthiazid e (MAXZIDE-25) 37.5-25 MG per tablet Take 1 tablet by mouth 1 (one) time each day in the morning 0 Active amLODIPine (NORVASC) 10 MG tablet TAKE 1 TABLET BY MOUTH EVERY DAY 30 tablet 11 2 Active lisinopril 40 MG tablet TAKE 1 TABLET BY MOUTH EVERY DAY 30 tablet 11 2 Active Active Problems Problem Noted Date Diagnosed Date Proteinuria 07/30/2020 Chronic kidney disease, stage 3 (moderate) 04/23 Hyponatremia Hypertension Immunizations Immunization Administration Dates Next Due Influenza, Quadrivalent, Preservative Free 07/26,07/27/2019 Zoster 07/26/2020 Social History Tobacco Use Types Packs/Day Years Used Date Smoking Tobacco: Never Sex and Gender Information Value Date Recorded Sex Assigned at Not on file Legal Sex Male 10:39 AM EDT Gender Identity Not on file Sexual Orientation Not on file Plan of Treatment Health Maintenance Due Date Last Done Comments Pneumococcal Vaccine: 50+ Years (1 of 2 - PCV) 1978 Colorectal Cancer Screening: Annual FOBT 2008 Colorectal Cancer Screening: Colonoscopy 2008 Colorectal Cancer Screening: Sigmoidoscopy 2008 Influenza Vaccine (Season Ended) 2025 07/26/2020, 07/27/2019 Hepatitis B Vaccine Aged Out No longe r eligible based on patient's age to complete this topic Insurance [facility] Care Teams Movie Editor Relationship Specialty Start Date End Date Dev Murray MD [address] [place] [address] [id number] [place], [place] PCP - General Medical Oncology 08/19/20
[2025-05-03 12:29] LABS: Influenza A PCR NEGATIVE (Negative); Influenza B PCR NEGATIVE (Negative); Resp Syncy Virus RNA Qual PCR NEGATIVE (Negative); SARS COV2 PCR INHOUSE NEGATIVE (Negative)
--- NOTE | 2025-05-03 12:47 | MHC.STROKE ---
Addendum entered by Oriana Zambrano 05/03/25 12:52: Error on previous note, mild right sided droop noted Original Note: Met with patient in ED room 4. Pt awake, alert and oriented. Speech noted to be slightly slurred. Mild left facial droop appreciated. Pt had c/o mild left sided weakness. Symptoms x a while . Unable to provide accurate timeline of symptoms Stroke Education/Protocol reviewed. Pamphlet provided. Risk factors discussed including medical hx, medications, diet, activity, social history. Pt appears to be a poor historian. Pt denies smoking or alcohol use. Will continue to assist as needed.
[2025-05-03 12:51] LABS: Alkaline Phosphatase 78 U/L (39-117)
[2025-05-03] MEDS: iohexoL 350 MG/ML 100 ML INFUS..BTL 70 ML IV (13:39)
[2025-05-03] MEDS: Furosemide 20 MG/2 ML VIAL IVPUSH (14:43)
--- NOTE | 2025-05-03 15:28 | P.HPHOSP_ITS ---
History of Present Illness Date of Service: 05/03/25 Attending physician on admission: Joel Ordoñez Chief Complaint: SOB Pt is a 64-year-old male with a PMH significant for HTN and ALLISON on CPAP who presents to the ED from primary care visit for evaluation of multiple issues, including increased SOB, LLE, and garbled speech. Pt reports has been experiencing increased lower leg edema for the past 2-3 weeks, and increased SOB with a ?little bit? of nonproductive cough for the past week. Denies orthopnea. Pt lives with his sister and her family, who encouraged him to call and set up a PCP visit. Sister notes, however, this morning pt was also having difficulty with speaking and word finding. States he was just not ?speaking clearly? and she kept asking him ?are you okay? to which he responded that he was. When they presented to Dr. Murray's office the provider noted that he was having dysarthria, difficulty word finding, and questionable right-sided facial droop, and then sent him to the ED for further evaluation. Pt denies headache, acute vision changes, hemiplegia, or difficulty grasping objects. No significant ataxia. Denies chest pain/pressure, palpitations. No fever or chills. In the ED pt was initially tachypneic at 24 hypertensive at 183/89, and hypoxic as low as 86% on RA. Labs were significant for BNP 130, otherwise grossly unremarkable and around baseline for pt. No leukocytosis. Stable H&H. No significant electrolyte abnormalities. Renal function WNL. Hepatic function WNL. Troponin 3.8. Tested negative for flu, COVID, RSV. CXR showed mild cardiomegaly and pulmonary vascular congestion with trace pleural effusions in linear subsegmental atelectasis. CTA of head negative for acute intracranial abnormality. CTA of head/neck suggestive for interstitial pulmonary edema, but negative for significant stenosis, occlusion, dissection or aneurysm in the head or neck. Did find approximate 50% stenosis of right ICA Ophthalmology segment secondary to calcified plaque. EKG demonstrated sinus bradycardia of 51 with RBBB and left anterior fascicular block, similar to prior. Pt was treated in the ED with furosemide 20 mg IV. Pt is admitted to the hospital for treatment and further evaluation of acute hypoxic respiratory failure in the setting of new onset CHF as well as dysarthria and difficulty word finding concerning for possible acute CVA. Review of Systems 2 Review of Systems: Negative except for that which is stated in the HPI. [facility] Medical History Leg edema ALLISON (obstructive sleep apnea) Obesity (BMI 30-39.9) Social History Household Members: Family Housing: House Do you presently have visiting nurse or other home services: No Alcohol intake: never Patient Tobacco Use Status: Never used Tobacco Smoked in Last 30 Days: No Use of substances other than those prescribed or required for medical reasons: No Advance Directives: No Advance Directives Information Provided: Yes Do you have a plan to hurt others: No Plan Recently lost weight without trying: No Poor oral hygiene: No service: No Meds Allergies Allergy/AdvReac Type Severity Reaction Status Date / Time No Known Allergies Allergy Verified 05/03/25 10:49 Home Medications ?Medication ?Instructions ?Recorded ?Confirmed ?Last Taken ?Type amlodipine 10 mg tablet 10 mg PO DAILY 10/22/20 05/03/25 05/03/25 History timolol maleate 0.5 % eye drops 1 drp ophthalmic (eye) BID 10/22/20 05/03/25 Unknown History atenolol 100 mg tablet 100 mg PO DAILY 12/12/23 05/03/25 05/03/25 History aspirin 81 mg tablet,delayed 81 mg PO DAILY 05/03/25 05/03/25 05/03/25 History release yivdefmn-jc-aejzf 300 mcg-K 60 1 tab PO DAILY 05/03/25 05/03/25 05/03/25 History mcg-lycop 600 mcg-lutein 300 mcg tablet (Centrum Silver Ultra Men's) omega-3 fatty acids 1,000 mg 1,000 mg PO DAILY 05/03/25 05/03/25 05/03/25 History capsule Physical Exam 2 Vital Signs and Narrative: Vital Signs: Last Vital Signs Temp 97.6 F 05/03/25 14:48 Pulse 55 05/03/25 14:48 Resp 20 05/03/25 14:48 BP 177/86 H 05/03/25 14:48 Pulse Ox 91 L 05/03/25 14:48 O2 Del Method Nasal Cannula 05/03/25 14:48 O2 Flow Rate 2 05/03/25 14:48 BMI result Body Mass Index 39.2 General: AOx3, no acute distress Resp: CTA bilaterally CVS: S1, S2, RRR GI: +BS, NT, no distention Skin: Warm, dry Neuro: Some difficulty word finding and dysarthria. Questionable right-sided facial droop. Motor grossly intact bilaterally. Preserved and symmetric strength 5/5 of upper and lower extremities bilaterally. Intact sensation to light touch of face and upper and lower extremities bilaterally. Negative pronator drift. Extremities: 2+ bilateral lower leg pitting edema Psych: Appropriate affect Results Labs 05/03/25 11:29 05/04/25 06:02 Labs: Laboratory Results - last 24 hr 05/03/25 05/03/25 05/03/25 11:29 11:36 11:47 MCV 87.8 MCH 30.6 MCHC 34.9 RDW 14.9 Plt Count 228 MPV 9.3 L Immature Gran % (Auto) 0.4 Neut % (Auto) 77.7 H Lymph % (Auto) 11.7 L [place] % (Auto) 8.6 Eos % (Auto) 1.4 Baso % (Auto) 0.2 Lymph # (Auto) 1.3 [place] # (Auto) 0.9 Eos # (Auto) 0.2 Baso # (Auto) 0.0 Abs Immat Gran (auto) 0.04 H Absolute Neuts (auto) 8.5 H Absolute Nucleated RBC 0.000 Nucleated RBC % (auto) 0.0 PT 12.2 INR 1.1 VBG pH 7.36 VBG pCO2 56 VBG pO2 82 VBG HCO3 32 H VBG O2 Saturation 95.0 VBG Base Excess 5.5 Anion Gap 12 Estim Creat Clear Calc 92.2 Estimated GFR > 60 Random Glucose 104 Lactic Acid 0.5 Calcium 9.7 Total Bilirubin 0.7 Direct Bilirubin 0.2 AST 31 ALT 25 Alkaline Phosphatase 78 Troponin I High Sens 3.8 B-Natriuretic Peptide 130 H Total Protein 8.2 H Albumin 4.4 Lipase 26 Influenza Type A (PCR) NEGATIVE Influenza Type B (PCR) NEGATIVE RSV RNA Qual (PCR) NEGATIVE SARS-CoV-2 RNA (RT-PCR) NEGATIVE Imaging Radiologist's Impressions: Impressions Chest X-Ray 05/03/25 11:21 IMPRESSION: Mild cardiomegaly and pulmonary vascular congestion with trace pleural effusions. Linear subsegmental atelectasis. Electronically signed by: Nikko Woodward MD 05/03/2025 12:34 PM EDT RP Head/Neck CTA 05/03/25 13:14 IMPRESSION: NONCONTRAST HEAD CT: 1. No intracranial hemorrhage or mass effect. No CT evidence of acute territorial infarct. CTA NECK: 1. No evidence of significant stenosis, occlusion, dissection, or aneurysm in the major cervical arterial vasculature. 2. There is a small left and tiny right pleural effusion in the imaged thorax. There are findings in the imaged lungs suggesting interstitial pulmonary edema. CTA HEAD: 1. No evidence of high-grade stenosis, occlusion, dissection, or aneurysm in the major intracranial arterial vasculature. 2. There is an approximate 50% stenosis of the right ICA ophthalmic segment due to calcified plaque. 3. Patent cortical and dural venous sinuses. Electronically signed by: Thomas Solis MD 05/03/2025 02:19 PM EDT RP Assessment and Plan (1) Hypoxia: Status: Acute (2) Dysarthria: Status: Acute (3) Leg edema: Status: Acute Plan Pt is a 64-year-old male with a PMH significant for HTN and ALLISON on CPAP who presents to the ED from primary care visit for evaluation of multiple issues, including increased SOB, LLE, and garbled speech. Pt is admitted to the hospital for treatment and further evaluation of acute hypoxic respiratory failure in the setting of new onset CHF as well as dysarthria and difficulty word finding concerning for possible acute CVA. Dysarthria and right facial droop concerning for acute CVA Family noted difficulty speaking this morning, PCP noticed dysarthria, difficulty word finding, and right-sided facial droop at visit Last known well time last night CTA of head negative, CTA of head/neck showing 50% stenosis of right ICA ophthalmic segment due to calcified plaque Will check MRI of head/brain Lipid profile We will give aspirin, statin Neurology consult PT/OT/speech therapy Monitor on telemetry Acute hypoxic respiratory failure in the setting of new onset CHF Pt with SOB, SANDHU, increased LLE, and desatting to 86% on RA BNP only mildly elevated, though pt obese; CXR showing mild cardiomegaly and pulmonary vascular congestion with trace pleural effusions Lasix 20 mg IV b.i.d. Echocardiogram with bubble study Monitor I/O, lytes, daily weights Consider cardiology consult pending echocardiogram results Titrate supplemental O2>92, wean as tolerated Monitor on telemetry HTN Continue amlodipine, atenolol ALLISON CPAP at night Full Code Attending:?Dr. Ordoñez DVT Prophylaxis: Lovenox Pt will require a hospitalization of at least two nights for treatment of?acute hypoxic respiratory failure in the setting of likely new onset CHF, as well as dysarthria and difficulty word finding concerning for acute CVA. Pt will require both close cardiac monitoring, additional workup and imaging for possible CVA, as well as IV diuresing and additional workup for new onset CHF. Quality Stroke Does the patient have a stroke diagnosis?: No Reason for No Anti-thrombotic by Day Two: Contraindicated (Pt given aspirin; not a tNK candidate as outside of therapeutic window) VTE Prior VTE?: No VTE Risk Level:: Medical - moderate - high VTE Device Contraindication: Treatment Not Indicated VTE Drug Contraindication: N/A - Med Ordered
--- NOTE | 2025-05-03 15:31 | PHA.MEDREC ---
Addendum entered by Leila Pyle RPh 05/03/25 15:52: REVIEWED BY PHARMACIST Original Note: Pharmacy Consult ? Medication Reconciliation Pharmacy has completed the medication reconciliation. Spoke with pt and he confirmed his medications. Pt confirmed he has Timolol Eye Drops at home still as needed for eye pressure.
--- NOTE | 2025-05-03 15:37 | PC.NURSE ---
MRI screening form completed with Pt. Form faxed to MRI and hard copy placed in chart.
--- NOTE | 2025-05-03 17:29 | PC.NURSE ---
Pt off unit for MRI
[2025-05-03] MEDS: Aspirin 81 MG TAB.CHEW PO (17:59)
[2025-05-03 18:13] LABS: Cholesterol 189 mg/dL (<200); HDL Cholesterol 37 mg/dL (>40); LDL Cholesterol Calculated 129 mg/dL (<100); Triglycerides 118 mg/dL (<150)
--- NOTE | 2025-05-03 18:33 | MHC.EDTECH ---
This Pct assumed care of Patient at 1500 ,Patient went to MRI just came ,vitals taken ,Patient was re connected back to cardiac monitor technician ,no apparent distress noted ,Patient sister and brother at bed side ,600 ml urine empty from urinal ,Call garza within Pt reach .
--- NOTE | 2025-05-03 19:16 | PC.NURSE ---
assumed care of pt, pt sitting up eating dinner. No acute distress noted.
--- NOTE | 2025-05-03 20:12 | MHC.EDTECH ---
1999 rounding done ,vitals taken ,Patient ate 100 % of dinner and drawn 360 ml fluids ,350 ml urine empty from urinal ,Patient has a bed assignment on [facility] ,Waiting for report to be given .
[2025-05-03] MEDS: Enoxaparin Sodium 40 MG/0.4 ML SYRINGE SUBCUT (20:13)
[2025-05-03] MEDS: Atorvastatin Calcium 40 MG TABLET PO (20:13)
[2025-05-03] MEDS: timoloL maleate 0.5 % Oph Sol 5 ML DRBTL 1 DROP EYE-BOTH (20:13)
[2025-05-04 03:21] VITALS: BP 162/83; PULSE 43; RESP 14; TEMP 36.3; O2SAT 89
--- NOTE | 2025-05-04 06:37 | PC.NURSE ---
patient refusing medication all shift regardless of education, MD aware. patient continually calling out to call police to take him home reoriented to the hospital but lacking nderstanding, very resistive to repositioning and care
[2025-05-04 07:00] LABS: Anion Gap 10 (12-20); Blood Urea Nitrogen 18 mg/dL (9-16); Calcium 9.3 mg/dL (8.4-10.2); Carbon Dioxide 33 mmol/L (22-29); Chloride 101 mmol/L (96-108); Creatinine Clr Calc Pharmacy 97.4; Estimated Glomerular Filt Rate > 60; Glucose Random 77 mg/dL (60-115); Magnesium 2.2 mg/dL (1.6-2.6); Sodium 140 mmol/L (135-145)
[2025-05-04 07:38] VITALS: BP 173/85; PULSE 52; RESP 20; TEMP 36.4; O2SAT 91
[2025-05-04 08:20] LABS: Estimated Average Glucose 103 mg/dL; Hemoglobin A1C 128.3079 umol/L; Hemoglobin A1c % 5.2 % (<6.0); Total Hemoglobin (HGBA1C) 3850.1458 umol/L
--- NOTE | 2025-05-04 08:22 | MHC.CM.PN ---
CM met with Patient at bedside and addressed IMM with him, providing Patient with the original and a copy has been placed on the chart. Patient lives in a house with his Sister and her family and he uses CPAP, supplied through [employer]. Patient will benefit from PT/OT/WOOD TANK ERECTOR Evals to assist with disposition; CM has initiated and will follow for dc planning. PCP is Dr. Dev Murray and Brother/Jese will transport to home at time of dc.
[2025-05-04 08:48] LABS: B Type Natriuretic Peptide 115 pg/mL (<100)
[2025-05-04] MEDS: Furosemide 20 MG/2 ML VIAL IVPUSH ×2 (09:10→17:46)
[2025-05-04] MEDS: Multivitamin TABLET 1 TAB PO (09:11)
[2025-05-04] MEDS: Aspirin 81 MG TAB.CHEW PO (09:11)
[2025-05-04] MEDS: atenoloL 100 MG TABLET PO (09:11)
[2025-05-04] MEDS: 0.9 % Sodium Chloride Flush 3 ML SYRINGE IVFLUSH ×4 (09:11→19:09)
[2025-05-04] MEDS: amLODIPine Besylate 10 MG TABLET PO (09:11)
--- NOTE | 2025-05-04 11:10 | PM.NEUROCN ---
History of Present Illness Data of Consult Service Date: 05/04/25 Primary Care Provider: Dev Murray MD [facility] Reason for consult: CHF with some speech difficulty This is a 64-year-old male with a h/o HTN and ALLISON on CPAP who presented to the ED with increasing SOB, bilateral edema of legs, and some speech difficulties. He has had increased lower leg edema for the past 2-3 weeks, and increased SOB with a small nonproductive cough for the past week. Denies orthopnea. On the morning of admission, he was also having difficulty with speaking and word finding, not ?speaking clearly? . He presented to Dr. Murray's office who thought that he was having some dysarthria, difficulty word finding, and questionable right-sided facial droop, and then sent him to the ED for further evaluation. Pt denies headache, acute vision changes, hemiplegia, or difficulty grasping objects. No significant ataxia. Denies chest pain/pressure, palpitations. No fever or chills. His CTA of head and neck are unremarkable. The MRI of the brain is negative for any acute stroke and no significant microvacsular disease PMFSH Past Medical History Medical History Leg edema ALLISON (obstructive sleep apnea) Obesity (BMI 30-39.9) Social History Social History Household Members: Family Housing: House Do you presently have visiting nurse or other home services: No Alcohol intake: never Patient Tobacco Use Status: Never used Tobacco Smoked in Last 30 Days: No Use of substances other than those prescribed or required for medical reasons: No Advance Directives: No Advance Directives Information Provided: Yes Do you have a plan to hurt others: No Plan Recently lost weight without trying: No Poor oral hygiene: No service: No Meds Allergies Allergy/AdvReac Type Severity Reaction Status Date / Time No Known Allergies Allergy Verified 05/03/25 10:49 Active Medications: Current Medications Acetaminophen (Acetaminophen 325 Mg Tablet) 650 mg PO Q6H PRN PRN Reason: Pain, Mild 1-3,fever,headache Amlodipine Besylate (Amlodipine Besylate 10 Mg Tablet) 10 mg PO DAILY [facility]; Protocol Last Admin: 05/04/25 09:11 Dose: 10 mg Aspirin (Aspirin 81 Mg Tab.Chew) 81 mg PO DAILY [facility] Last Admin: 05/04/25 09:11 Dose: 81 mg Atenolol (Atenolol 100 Mg Tablet) 100 mg PO DAILY [facility]; Protocol Last Admin: 05/04/25 09:11 Dose: 100 mg Atorvastatin Calcium (Atorvastatin Calcium 40 Mg Tablet) 40 mg PO BEDTIME [facility] Last Admin: 05/03/25 20:13 Dose: 40 mg Calcium Carbonate (Calcium Carbonate 750 Mg Tab.Chew) 750 mg PO Q4H PRN PRN Reason: Heartburn Enoxaparin Sodium (Enoxaparin Sodium 40 Mg/0.4 Ml Syringe) 40 mg SUBCUT Q24H [facility] Last Admin: 05/03/25 20:13 Dose: 40 mg Furosemide (Furosemide 20 Mg/2 Ml Vial) 20 mg IVPUSH BID@0900,1800 [facility]; Protocol Last Admin: 05/04/25 09:10 Dose: 20 mg Magnesium Hydroxide (Milk Of Magnesia 30 Ml Oral.Susp) 30 ml PO DAILY PRN PRN Reason: Constipation Melatonin (Melatonin 3 Mg Tablet) 6 mg PO BEDTIME PRN PRN Reason: Insomnia Multivitamins/Vitamin C (Multivitamin Tablet) 1 tab PO DAILY [facility] Last Admin: 05/04/25 09:11 Dose: 1 tab Sodium Chloride (0.9 % Sodium Chloride Flush 3 Ml Syringe) 3 ml IVFLUSH QSHIFT [facility] Last Admin: 05/04/25 09:11 Dose: 3 ml Timolol Maleate (Timolol Maleate 0.5 % Oph Taya 5 Ml Drbtl) 1 drop EYE-BOTH BID [facility] Last Admin: 05/03/25 20:13 Dose: 1 drop Home Medications ?Medication ?Instructions ?Recorded ?Confirmed ?Last Taken ?Type amlodipine 10 mg tablet 10 mg PO DAILY 10/22/20 05/03/25 05/03/25 History timolol maleate 0.5 % eye drops 1 drp ophthalmic (eye) BID 10/22/20 05/03/25 Unknown History atenolol 100 mg tablet 100 mg PO DAILY 12/12/23 05/03/25 05/03/25 History aspirin 81 mg tablet,delayed 81 mg PO DAILY 05/03/25 05/03/25 05/03/25 History release oaqhuofj-oz-joims 300 mcg-K 60 1 tab PO DAILY 05/03/25 05/03/2505/03/25 History mcg-lycop 600 mcg-lutein 300 mcg tablet (Centrum Silver Ultra Men's) omega-3 fatty acids 1,000 mg 1,000 mg PO DAILY 05/03/25 05/03/25 05/03/25 History capsule Physical Exam Vital Signs: Vital Signs: Last Vital Signs Temp 97.5 F 05/04/25 07:38 Pulse 52 05/04/25 07:38 Resp 20 05/04/25 07:38 BP 173/85 H 05/04/25 07:38 Pulse Ox 91 L 05/04/25 07:38 O2 Del Method Nasal Cannula 05/04/25 07:38 O2 Flow Rate 3 05/04/25 07:38 BMI result Body Mass Index 39.2 Neuro: Other: Slightly thick speech, otherwise normal non focal exam Results Labs 05/03/25 11:29 05/04/25 06:02 Labs: Short CBC 05/03/25 Range/Units 11:29 WBC 10.9 H (4.8-10.8) X10*3/uL Hgb 15.6 (14.0-18.0) g/dl Hct 44.7 (42.0-52.0) % Plt Count 228 (160-400) X10*3/uL BMP 05/03/25 05/04/25 11:29 06:02 Sodium 140 140 Potassium 4.1 4.0 Chloride 101 101 Carbon Dioxide 31 H 33 H BUN 19 H 18 H Creatinine 0.93 0.88 Calcium 9.7 9.3 Liver Function 05/03/25 Range/Units 11:29 Total Bilirubin 0.7 (0.0-1.0) mg/dL Direct Bilirubin 0.2 (0.0-0.5) mg/dL AST 31 (5-37) U/L ALT 25 (0-40) U/L Alkaline Phosphatase 78 (39-117) U/L Albumin 4.4 (3.5-5.0) g/dL Assessment and Plan (1) CHF (congestive heart failure): Status: Acute Treat CHF. Echocardiogram (2) Dysarthria: Status: Acute Probably related to above. No evidence of stroke or cerebral vascular disease on MRI or CTA of head and neck. Procedures Date of Service Date of Service: 05/04/25
--- NOTE | 2025-05-04 11:57 | P.PNIM_ITS ---
Subjective Subjective Date of Service: 05/04/25 Interval History: dysarthria resolved dyspnea improved, diuresed net negative 825 mL thus far Review of Systems Review of Systems: Yes all other systems are reviewed and are negative Physical Exam 2 Vital Signs: Vital Signs: Last Vital Signs Temp 97.5 F 05/04/25 07:38 Pulse 52 05/04/25 07:38 Resp 20 05/04/25 07:38 BP 173/85 H 05/04/25 07:38 Pulse Ox 91 L 05/04/25 07:38 O2 Del Method Nasal Cannula 05/04/25 07:38 O2 Flow Rate 3 05/04/25 07:38 BMI result Body Mass Index 39.2 Gen: in no acute distress HEENT: sclera anicteric, moist mucus membranes Neck: supple, JVD present Lungs: bibasilar inspiratory crackles Heart: regular rate and rhythm, no murmurs Abd: soft, non-tender, non-distended Ext: 2+ bilateral leg edema Skin: warm/well-perfused Neuro: alert and oriented x3, no focal findings Psych: appropriate affect Objective Data Active Medications Acetaminophen (Acetaminophen 325 Mg Tablet) 650 mg PO Q6H PRN PRN Reason: Pain, Mild 1-3,fever,headache Amlodipine Besylate (Amlodipine Besylate 10 Mg Tablet) 10 mg PO DAILY [facility]; Protocol Last Admin: 05/04/25 09:11 Dose: 10 mg Documented By: MARY JO Aspirin (Aspirin 81 Mg Tab.Chew) 81 mg PO DAILY [facility] Last Admin: 05/04/25 09:11 Dose: 81 mg Documented By: MARY JO Atenolol (Atenolol 100 Mg Tablet) 100 mg PO DAILY [facility]; Protocol Last Admin: 05/04/25 09:11 Dose: 100 mg Documented By: MARY JO Atorvastatin Calcium (Atorvastatin Calcium 40 Mg Tablet) 40 mg PO BEDTIME [facility] Last Admin: 05/03/25 20:13 Dose: 40 mg Documented By: JACQUES Calcium Carbonate (Calcium Carbonate 750 Mg Tab.Chew) 750 mg PO Q4H PRN PRN Reason: Heartburn Enoxaparin Sodium (Enoxaparin Sodium 40 Mg/0.4 Ml Syringe) 40 mg SUBCUT Q24H [facility] Last Admin: 05/03/25 20:13 Dose: 40 mg Documented By: JACQUES Furosemide (Furosemide 20 Mg/2 Ml Vial) 20 mg IVPUSH BID@0900,1800 [facility]; Protocol Last Admin: 05/04/25 09:10 Dose: 20 mg Documented By: MARY JO Magnesium Hydroxide (Milk Of Magnesia 30 Ml Oral.Susp) 30 ml PO DAILY PRN PRN Reason: Constipation Melatonin (Melatonin 3 Mg Tablet) 6 mg PO BEDTIME PRN PRN Reason: Insomnia Multivitamins/Vitamin C (Multivitamin Tablet) 1 tab PO DAILY [facility] Last Admin: 05/04/25 09:11 Dose: 1 tab Documented By: MARY JO Sodium Chloride (0.9 % Sodium Chloride Flush 3 Ml Syringe) 3 ml IVFLUSH QSHIFT [facility] Last Admin: 05/04/25 09:11 Dose: 3 ml Documented By: MARY JO Timolol Maleate (Timolol Maleate 0.5 % Oph Taya 5 Ml Drbtl) 1 drop EYE-BOTH BID [facility] Last Admin: 05/03/25 20:13 Dose: 1 drop Documented By: JACQUES Labs 05/03/25 11:29 05/04/25 06:02 Labs: Laboratory Results - last 24 hr 05/03/25 05/03/25 05/04/25 11:29 11:47 06:02 Hold Purple Top SEE NOTE Anion Gap 12 10 L Estim Creat Clear Calc 92.2 97.4 Estimated GFR > 60 > 60 Random Glucose 104 77 Estimat Average Glucose 103 Hemoglobin A1c % 5.2 Calcium 9.7 9.3 Magnesium 2.2 Total Bilirubin 0.7 Direct Bilirubin 0.2 AST 31 ALT 25 Alkaline Phosphatase 78 Troponin I High Sens 3.8 B-Natriuretic Peptide 130 H 115 H Total Protein 8.2 H Albumin 4.4 Triglycerides 118 Cholesterol 189 LDL Cholesterol, Calc 129 H HDL Cholesterol 37 L Lipase 26 Influenza Type A (PCR) NEGATIVE Influenza Type B (PCR) NEGATIVE RSV RNA Qual (PCR) NEGATIVE SARS-CoV-2 RNA (RT-PCR) NEGATIVE Impressions Chest X-Ray 05/03/25 11:21 IMPRESSION: Mild cardiomegaly and pulmonary vascular congestion with trace pleural effusions. Linear subsegmental atelectasis. Electronically signed by: Nikko Woodward MD 05/03/2025 12:34 PM EDT Head/Neck CTA 05/03/25 13:14 IMPRESSION: NONCONTRAST HEAD CT: 1. No intracranial hemorrhage or mass effect. No CT evidence of acute territorial infarct. CTA NECK: 1. No evidence of significant stenosis, occlusion, dissection, or aneurysm in the major cervical arterial vasculature. 2. There is a small left and tiny right pleural effusion in the imaged thorax. There are findings in the imaged lungs suggesting interstitial pulmonary edema. CTA HEAD: 1. No evidence of high-grade stenosis, occlusion, dissection, or aneurysm in the major intracranial arterial vasculature. 2. There is an approximate 50% stenosis of the right ICA ophthalmic segment due to calcified plaque. 3. Patent cortical and dural venous sinuses. 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 Quality Stroke Does the patient have a stroke diagnosis?: No Reason for No Anti-thrombotic by Day Two: Contraindicated (Pt given aspirin; not a tNK candidate as outside of therapeutic window) VTE Prior VTE?: No VTE Risk Level:: Medical - moderate - high VTE Device Contraindication: Treatment Not Indicated VTE Drug Contraindication: N/A - Med Ordered
[2025-05-04 12:00] VITALS: BP 127/69; PULSE 51; RESP 20; TEMP 36.8; O2SAT 94
[2025-05-04 15:55] VITALS: BP 168/77; PULSE 54; RESP 20; TEMP 37.1; O2SAT 91
[2025-05-04] MEDS: Enoxaparin Sodium 40 MG/0.4 ML SYRINGE SUBCUT (19:06)
[2025-05-04] MEDS: timoloL maleate 0.5 % Oph Sol 5 ML DRBTL 1 DROP EYE-BOTH (19:06)
[2025-05-04] MEDS: Atorvastatin Calcium 40 MG TABLET PO (19:06)
[2025-05-04 20:00] VITALS: BP 167/79; PULSE 55; RESP 18; TEMP 36.8; O2SAT 92
[2025-05-05] VITALS (8 sets, daily range): BP systolic 140–169; BP diastolic 67–83; PULSE 50–68; RESP 16–18; TEMP 36.2–37.1; O2SAT 92–100
[2025-05-05 08:06] LABS: Anion Gap 14 (12-20); Blood Urea Nitrogen 17 mg/dL (9-16); Calcium 9.3 mg/dL (8.4-10.2); Carbon Dioxide 35 mmol/L (22-29); Chloride 100 mmol/L (96-108); Creatinine Clr Calc Pharmacy 82.4; Estimated Glomerular Filt Rate > 60; Glucose Random 82 mg/dL (60-115); Magnesium 2.1 mg/dL (1.6-2.6); Potassium 3.8 mmol/L (3.3-5.1); Sodium 145 mmol/L (135-145)
[2025-05-05 08:23] LABS: B Type Natriuretic Peptide 43 pg/mL (<100)
[2025-05-05] MEDS: timoloL maleate 0.5 % Oph Sol 5 ML DRBTL 1 DROP EYE-BOTH ×2 (08:56→20:09)
[2025-05-05] MEDS: 0.9 % Sodium Chloride Flush 3 ML SYRINGE IVFLUSH ×3 (08:56→20:09)
[2025-05-05] MEDS: amLODIPine Besylate 10 MG TABLET PO (08:57)
[2025-05-05] MEDS: Aspirin 81 MG TAB.CHEW PO (08:57)
[2025-05-05] MEDS: atenoloL 100 MG TABLET PO (08:57)
[2025-05-05] MEDS: Furosemide 20 MG/2 ML VIAL IVPUSH (09:00)
[2025-05-05] MEDS: Multivitamin TABLET 1 TAB PO (09:00)
--- NOTE | 2025-05-05 10:23 | P.PNIM_ITS ---
Subjective Subjective Date of Service: 05/05/25 Interval History: breathing improved no speech difficulty Review of Systems Review of Systems: Yes all other systems are reviewed and are negative Physical Exam 2 Vital Signs: Vital Signs: Last Vital Signs Temp 98.0 F 05/05/25 07:25 Pulse 56 05/05/25 07:25 Resp 17 05/05/25 07:25 BP 153/76 H 05/05/25 07:25 Pulse Ox 97 05/05/25 07:25 O2 Del Method BiPAP 05/05/25 07:25 O2 Flow Rate 2 05/04/25 20:00 BMI result Body Mass Index 39.2 Gen: in no acute distress HEENT: sclera anicteric, moist mucus membranes Neck: supple, no JVD Lungs: diminished Heart: regular rate and rhythm, no murmurs Abd: soft, non-tender, non-distended Ext: 1+ bilateral leg edema Skin: warm/well-perfused Neuro: alert and oriented x3, no focal findings Psych: appropriate affect Objective Data Active Medications Acetaminophen (Acetaminophen 325 Mg Tablet) 650 mg PO Q6H PRN PRN Reason: Pain, Mild 1-3,fever,headache Amlodipine Besylate (Amlodipine Besylate 10 Mg Tablet) 10 mg PO DAILY [facility]; Protocol Last Admin: 05/05/25 08:57 Dose: 10 mg Documented By: MARY JO Aspirin (Aspirin 81 Mg Tab.Chew) 81 mg PO DAILY [facility] Last Admin: 05/05/25 08:57 Dose: 81 mg Documented By: MARY JO Atenolol (Atenolol 100 Mg Tablet) 100 mg PO DAILY [facility]; Protocol Last Admin: 05/05/25 08:57 Dose: 100 mg Documented By: MARY JO Atorvastatin Calcium (Atorvastatin Calcium 40 Mg Tablet) 40 mg PO BEDTIME [facility] Last Admin: 05/04/25 19:06 Dose: 40 mg Documented By: BEL Calcium Carbonate (Calcium Carbonate 750 Mg Tab.Chew) 750 mg PO Q4H PRN PRN Reason: Heartburn Enoxaparin Sodium (Enoxaparin Sodium 40 Mg/0.4 Ml Syringe) 40 mg SUBCUT Q24H [facility] Last Admin: 05/04/25 19:06 Dose: 40 mg Documented By: BEL Furosemide (Furosemide 20 Mg/2 Ml Vial) 20 mg IVPUSH BID@0900,1800 [facility]; Protocol Stop: 06/08/25 11:00 Last Admin: 05/05/25 09:00 Dose: 20 mg Documented By: MARY JO Furosemide (Furosemide 20 Mg Tablet) 20 mg PO DAILY [facility]; Protocol Magnesium Hydroxide (Milk Of Magnesia 30 Ml Oral.Susp) 30 ml PO DAILY PRN PRN Reason: Constipation Melatonin (Melatonin 3 Mg Tablet) 6 mg PO BEDTIME PRN PRN Reason: Insomnia Multivitamins/Vitamin C (Multivitamin Tablet) 1 tab PO DAILY [facility] Last Admin: 05/05/25 09:00 Dose: 1 tab Documented By: MARY JO Sodium Chloride (0.9 % Sodium Chloride Flush 3 Ml Syringe) 3 ml IVFLUSH QSHIFT [facility] Last Admin: 05/05/25 08:56 Dose: 3 ml Documented By: MARY JO Timolol Maleate (Timolol Maleate 0.5 % Oph Taya 5 Ml Drbtl) 1 drop EYE-BOTH BID [facility] Last Admin: 05/05/25 08:56 Dose: 1 drop Documented By: MARY JO Labs 05/03/25 11:29 05/05/25 07:23 Labs: Laboratory Results - last 24 hr 05/05/25 07:23 Hold Purple Top SEE NOTE Anion Gap 14 Estim Creat Clear Calc 82.4 Estimated GFR > 60 Random Glucose 82 Calcium 9.3 Magnesium 2.1 B-Natriuretic Peptide 43 Assessment and Plan (1) CHF (congestive heart failure): Status: Acute Plan d3 for 64yo M with HTN, ALLISON on CPAP presenting from PCP office with dyspnea, leg edema, resolved facial droop, and speech difficulty, found to be hypoxic, concern for CVA as well TIA - dysarthria resolved, R-sided facial droop resolved; presented out of tPA window - CTA of head negative, CTA of head/neck showing 50% stenosis of right ICA ophthalmic segment due to calcified plaque - MRI brain normal - Neurology consulted, PT: [facility]/home PT for impaired gait, OT/SHOEBLACK pending - continue ASA, atorvastatin acute hypoxic respiratory failure due to new-onset CHF - change IV to PO furosemide and monitor 1 more day, TTE pending, monitor I/O, lytes, weights - supplemental O2, wean as tolerated; goal SaO2 88-92 as appears to have some CO2 retention; should have home O2 eval prior to discharge HTN - atenolol, amlodipine ALLISON - CPAP at night VTE ppx - enoxaparin dispo - home with [facility] In my clinical judgment, the patient requires continued inpatient hospitalization for the following reasons: CHF workup, hypoxia Total time managing care of this patient today: 45 minutes. Quality Stroke Does the patient have a stroke diagnosis?: No Reason for No Anti-thrombotic by Day Two: Contraindicated (Pt given aspirin; not a tNK candidate as outside of therapeutic window) VTE Prior VTE?: No VTE Risk Level:: Medical - moderate - high VTE Device Contraindication: Treatment Not Indicated VTE Drug Contraindication: N/A - Med Ordered
[2025-05-05] MEDS: Enoxaparin Sodium 40 MG/0.4 ML SYRINGE SUBCUT (20:09)
[2025-05-05] MEDS: Atorvastatin Calcium 40 MG TABLET PO (20:09)
[2025-05-06] VITALS (9 sets, daily range): BP systolic 134–170; BP diastolic 76–92; PULSE 48–64; RESP 15–20; TEMP 36.1–36.4; O2SAT 84–98
[2025-05-06 07:53] LABS: Anion Gap 13 (12-20); Blood Urea Nitrogen 15 mg/dL (9-16); Calcium 9.3 mg/dL (8.4-10.2); Carbon Dioxide 37 mmol/L (22-29); Chloride 97 mmol/L (96-108); Creatinine Clr Calc Pharmacy 89.2; Estimated Glomerular Filt Rate > 60; Glucose Random 82 mg/dL (60-115); Magnesium 2.1 mg/dL (1.6-2.6); Potassium 3.6 mmol/L (3.3-5.1); Sodium 143 mmol/L (135-145)
[2025-05-06 08:37] LABS: Venous Blood Gas Refer to POC result
[2025-05-06 08:38] LABS: VBG HCO3 43 mmol/L (22-26); VBG pCO2 64 mmHg; VBG pH 7.43 (7.32-7.43); VBG pO2 73 mmHg
[2025-05-06] MEDS: amLODIPine Besylate 10 MG TABLET PO (08:47)
[2025-05-06] MEDS: Aspirin 81 MG TAB.CHEW PO (08:47)
[2025-05-06] MEDS: Furosemide 20 MG TABLET PO (08:47)
[2025-05-06] MEDS: 0.9 % Sodium Chloride Flush 3 ML SYRINGE IVFLUSH ×3 (08:48→19:53)
[2025-05-06] MEDS: Multivitamin TABLET 1 TAB PO (08:48)
[2025-05-06] MEDS: timoloL maleate 0.5 % Oph Sol 5 ML DRBTL 1 DROP EYE-BOTH ×2 (08:49→19:50)
--- NOTE | 2025-05-06 11:44 | PC.RT ---
Home O2 eval completed this am, however it is unclear if pt will be discharged today due to hypoxia overnight. Overnight RT stated that pt required 7L O2 entrained through CPAP to maintain SATs. Dr. Felipe office was called and stated that pt has [facility] for CPAP DME. Paperwork on hold for O2 set up at this time until discharge is final.
--- NOTE | 2025-05-06 13:57 | HO.PM.IMPN ---
Subjective Subjective Date of Service: 05/06/25 Interval History: hypoxic overnight requiring up to 7L O2 on CPAP now requires 2L O2 with ambulation states he thinks he has a PFO diagnosed at [facility] Review of Systems Review of Systems: Yes all other systems are reviewed and are negative Physical Exam Vital Signs: Vital Signs: Last Vital Signs Temp 97.2 F 05/06/25 11:14 Pulse 55 05/06/25 11:14 Resp 20 05/06/25 11:14 BP 160/78 H 05/06/25 11:14 Pulse Ox 93 05/06/25 11:14 O2 Del Method Nasal Cannula 05/06/25 11:14 O2 Flow Rate 2 05/06/25 11:14 BMI result Body Mass Index 39.2 Gen: in no acute distress HEENT: sclera anicteric, moist mucus membranes Neck: supple, no JVD Lungs: diminished Heart: regular rate and rhythm, no murmurs Abd: soft, non-tender, non-distended, obese Ext: trace bilateral leg edema Skin: warm/well-perfused Neuro: alert and oriented x3, no focal findings Psych: appropriate affect Objective Data Active Medications Acetaminophen (Acetaminophen 325 Mg Tablet) 650 mg PO Q6H PRN PRN Reason: Pain, Mild 1-3,fever,headache Amlodipine Besylate (Amlodipine Besylate 10 Mg Tablet) 10 mg PO DAILY [facility]; Protocol Last Admin: 05/06/25 08:47 Dose: 10 mg Documented By: GLENIS Aspirin (Aspirin 81 Mg Tab.Chew) 81 mg PO DAILY [facility] Last Admin: 05/06/25 08:47 Dose: 81 mg Documented By: GLENIS Atenolol (Atenolol 100 Mg Tablet) 100 mg PO DAILY [facility]; Protocol Last Admin: 05/06/25 08:48 Dose: Not Given Documented By: GLENIS Non-Admin Reason: Nash HR 50's Atorvastatin Calcium (Atorvastatin Calcium 40 Mg Tablet) 40 mg PO BEDTIME [facility] Last Admin: 05/05/25 20:09 Dose: 40 mg Documented By: KISHAN Calcium Carbonate (Calcium Carbonate 750 Mg Tab.Chew) 750 mg PO Q4H PRN PRN Reason: Heartburn Enoxaparin Sodium (Enoxaparin Sodium 40 Mg/0.4 Ml Syringe) 40 mg SUBCUT Q24H [facility] Last Admin: 05/05/25 20:09 Dose: 40 mg Documented By: KISHAN Furosemide (Furosemide 20 Mg Tablet) 20 mg PO DAILY [facility]; Protocol Last Admin: 05/06/25 08:47 Dose: 20 mg Documented By: GLENIS Magnesium Hydroxide (Milk Of Magnesia 30 Ml Oral.Susp) 30 ml PO DAILY PRN PRN Reason: Constipation Melatonin (Melatonin 3 Mg Tablet) 6 mg PO BEDTIME PRN PRN Reason: Insomnia Multivitamins/Vitamin C (Multivitamin Tablet) 1 tab PO DAILY [facility] Last Admin: 05/06/25 08:48 Dose: 1 tab Documented By: GLENIS Sodium Chloride (0.9 % Sodium Chloride Flush 3 Ml Syringe) 3 ml IVFLUSH QSHIFT [facility] Last Admin: 05/06/25 08:48 Dose: 3 ml Documented By: GLENIS Timolol Maleate (Timolol Maleate 0.5 % Oph Taya 5 Ml Drbtl) 1 drop EYE-BOTH BID [facility] Last Admin: 05/06/25 08:49 Dose: 1 drop Documented By: GLENIS Labs 05/03/25 11:29 05/06/25 06:38 Labs: Laboratory Results - last 24 hr 05/06/25 05/06/25 06:38 08:34 Hold Purple Top SEE NOTE VBG pH 7.43 VBG pCO2 64 VBG pO2 73 VBG HCO3 43 H VBG O2 Saturation 95.0 VBG Base Excess 15.0 Anion Gap 13 Estim Creat Clear Calc 89.2 Estimated GFR > 60 Random Glucose 82 Calcium 9.3 Magnesium 2.1 Assessment and Plan (1) CHF (congestive heart failure): Status: Acute Plan d4 for 64yo M with HTN, ALLISON on CPAP presenting from PCP office with dyspnea, leg edema, resolved facial droop, and speech difficulty, found to be hypoxic, concern for CVA as well TIA - dysarthria resolved, R-sided facial droop resolved; presented out of tPA window - CTA of head negative, CTA of head/neck showing 50% stenosis of right ICA ophthalmic segment due to calcified plaque - MRI brain normal - Neurology consulted, PT: [facility]/home PT for impaired gait, 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 Normal LV ejection fraction with impaired relaxation filling pattern 2. Mildly dilated left atrium next 3. Possible PFO present 4. Normal RV systolic pressure with mildly elevated right atrial pressures 5. No gross pericardial effusion - Cardiology consult re PFO and will contact PCP for additional information acute hypoxic respiratory failure due to new-onset CHF - changed IV to PO furosemide - TTE as above - supplemental O2, wean as tolerated; goal SaO2 88-92 as appears to have some CO2 retention; will need 2L O2 with ambulation HTN - atenolol, amlodipine ALLISON - CPAP at night- will need titration study given nocturnal hypoxia VTE ppx - enoxaparin dispo - home with [facility] In my clinical judgment, the patient requires continued inpatient hospitalization for the following reasons: cardiology consultation, hypoxia Total time managing care of this patient today: 40 minutes. Quality Stroke Does the patient have a stroke diagnosis?: No Reason for No Anti-thrombotic by Day Two: Contraindicated (Pt given aspirin; not a tNK candidate as outside of therapeutic window) VTE Prior VTE?: No VTE Risk Level:: Medical - moderate - high VTE Device Contraindication: Treatment Not Indicated VTE Drug Contraindication: N/A - Med Ordered
--- NOTE | 2025-05-06 14:10 | MHC.CM.PN ---
PER MD ROUNDS, PT WILL NEED HOME O2, NOT YET MEDICALLY CLEARED DCP: HOME WITH [facility]
--- NOTE | 2025-05-06 16:49 | MHC.SLORD ---
Speech Language Pathology Order Status: Order placed 05/03 for [employer]IP[employer] consultation; however, CVA ruled out. Pt's CTA head was negative, facial droop/speech difficulties resolved. [employer] provided recommendations to pt and sister if dysarthria/aphasia/dysphagia persist: pt and sister in agreement with followup referral through MD for CLIP[employer]TERS assessment if indicated.
[2025-05-06] MEDS: Enoxaparin Sodium 40 MG/0.4 ML SYRINGE SUBCUT (19:50)
[2025-05-06] MEDS: Atorvastatin Calcium 40 MG TABLET PO (19:50)
[2025-05-07] VITALS (7 sets, daily range): BP systolic 146–185; BP diastolic 72–87; PULSE 46–62; RESP 16–20; TEMP 36–36.6; O2SAT 92–95
[2025-05-07] MEDS: timoloL maleate 0.5 % Oph Sol 5 ML DRBTL 1 DROP EYE-BOTH ×2 (09:14→21:35)
[2025-05-07] MEDS: amLODIPine Besylate 10 MG TABLET PO (09:14)
[2025-05-07] MEDS: Furosemide 20 MG TABLET PO ×2 (09:15→13:37)
[2025-05-07] MEDS: Multivitamin TABLET 1 TAB PO (09:15)
[2025-05-07] MEDS: Aspirin 81 MG TAB.CHEW PO (09:15)
[2025-05-07 09:41] LABS: Venous Blood Gas Refer to POC result
[2025-05-07 09:43] LABS: VBG Base Excess 14.9 mmol/L; VBG HCO3 41 mmol/L (22-26); VBG pCO2 55 mmHg; VBG pH 7.48 (7.32-7.43); VBG pO2 99 mmHg
[2025-05-07 10:01] LABS: B Type Natriuretic Peptide 20 pg/mL (<100)
[2025-05-07 10:07] LABS: Anion Gap 9 (12-20); Blood Urea Nitrogen 12 mg/dL (9-16); Carbon Dioxide 35 mmol/L (22-29); Chloride 100 mmol/L (96-108); Creatinine Clr Calc Pharmacy 96.3; Estimated Glomerular Filt Rate > 60; Glucose Fasting 135 mg/dL (60-99); Potassium 3.6 mmol/L (3.3-5.1); Sodium 140 mmol/L (135-145)
--- NOTE | 2025-05-07 10:48 | P.CONCA_ITS ---
History of Present Illness History of Present Illness Date of Service: 05/07/25 Requesting physician: Joel Ordoñez Consult reason: congestive heart failure and other (TIA) Chief complaint: Hypoxia, ?CHF Narrative: I was consulted to see Earl in cardiology consultation today for possible PFO noted on transthoracic echocardiogram. Patient is not a very good historian. Has prior history of sleep apnea on CPAP at home, hypertension which as per him is well controlled usually, no coronary artery disease and no history of heart failure. He was referred from his primary care physician's office Dr. Amin for worsening shortness of breath along with leg edema and low oxygen level. He was sent to the emergency room and was noted to be in congestive heart failure which is new onset for him. He has never had any prior history. Over the last 4 days he has been diuresed about 4 L and he feels better with improved shortness of breath although still requires oxygen for unclear reason. He is noted to have nocturnal hypoxemia. Patient also presents with dysarthria and facial droop. This is now resolved. Patient does not report having any prior history of TIA or stroke. Underwent echocardiogram yesterday which showed normal LV ejection fraction with possible PFO although this was not diagnostic. Over over the last 4 days he has not had any significant arrhythmias. He has no prior history of atrial fibrillation. No prior history of stroke or TIA. He denies any exertional chest pain. He has no history of prior palpitations. Review of Systems 2 Constitutional: Constitutional: Reports no additional constitutional complaints Cardiovascular: Cardiovascular: Denies chest pain, Reports leg edema, Denies lightheadedness, Denies Loss of Consciousness, Denies palpitations, Reports dyspnea, Reports dyspnea on exertion and Reports orthopnea Respiratory: Respiratory: Reports no additional respiratory complaints, Reports dyspnea and Reports dyspnea on exertion Gastrointestinal: Gastrointestinal: Reports no additional gastrointestinal complaints Musculoskeletal: Musculoskeletal: Reports no additional musculoskeletal complaints Neurologic: Reports Abnormal speech present and Reports other (Facial droop) Endocrine: Endocrine: Denies palpitations PMFSH Past Medical History Medical History Leg edema ALLISON (obstructive sleep apnea) Obesity (BMI 30-39.9) Social History Social History Household Members: Family Housing: House Do you presently have visiting nurse or other home services: No Alcohol intake: never Patient Tobacco Use Status: Never used Tobacco Smoked in Last 30 Days: No Use of substances other than those prescribed or required for medical reasons: No Currently Displaying Signs/Symptoms of Drug Intoxication Withdrawal: No Advance Directives: No Advance Directives Information Provided: Yes Do you have a plan to hurt others: No Plan Recently lost weight without trying: No Poor oral hygiene: No service: No Meds Allergies Allergy/AdvReac Type Severity Reaction Status Date / Time No Known Allergies Allergy Verified 05/03/25 10:49 Active Medications: Current Medications Acetaminophen (Acetaminophen 325 Mg Tablet) 650 mg PO Q6H PRN PRN Reason: Pain, Mild 1-3,fever,headache Amlodipine Besylate (Amlodipine Besylate 10 Mg Tablet) 10 mg PO DAILY [facility]; Protocol Last Admin: 05/07/25 09:14 Dose: 10 mg Aspirin (Aspirin 81 Mg Tab.Chew) 81 mg PO DAILY [facility] Last Admin: 05/07/25 09:15 Dose: 81 mg Atenolol (Atenolol 100 Mg Tablet) 100 mg PO DAILY [facility]; Protocol Last Admin: 05/07/25 07:33 Dose: Not Given Atorvastatin Calcium (Atorvastatin Calcium 40 Mg Tablet) 40 mg PO BEDTIME [facility] Last Admin: 05/06/25 19:50 Dose: 40 mg Calcium Carbonate (Calcium Carbonate 750 Mg Tab.Chew) 750 mg PO Q4H PRN PRN Reason: Heartburn Enoxaparin Sodium (Enoxaparin Sodium 40 Mg/0.4 Ml Syringe) 40 mg SUBCUT Q24H [facility] Last Admin: 05/06/25 19:50 Dose: 40 mg Furosemide (Furosemide 20 Mg Tablet) 20 mg PO DAILY [facility]; Protocol Last Admin: 05/07/25 09:15 Dose: 20 mg Magnesium Hydroxide (Milk Of Magnesia 30 Ml Oral.Susp) 30 ml PO DAILY PRN PRN Reason: Constipation Melatonin (Melatonin 3 Mg Tablet) 6 mg PO BEDTIME PRN PRN Reason: Insomnia Multivitamins/Vitamin C (Multivitamin Tablet) 1 tab PO DAILY [facility] Last Admin: 05/07/25 09:15 Dose: 1 tab Sodium Chloride (0.9 % Sodium Chloride Flush 3 Ml Syringe) 3 ml IVFLUSH QSHIFT [facility] Last Admin: 05/07/25 07:33 Dose: Not Given Timolol Maleate (Timolol Maleate 0.5 % Oph Taya 5 Ml Drbtl) 1 drop EYE-BOTH BID [facility] Last Admin: 05/07/25 09:14 Dose: 1 drop Home Medications ?Medication ?Instructions ?Recorded ?Confirmed ?Last Taken ?Type amlodipine 10 mg tablet 10 mg PO DAILY 10/22/20 05/03/25 05/03/25 History timolol maleate 0.5 % eye drops 1 drp ophthalmic (eye) BID 10/22/20 05/03/25 Unknown History atenolol 100 mg tablet 100 mg PO DAILY 12/12/23 05/03/25 05/03/25 History aspirin 81 mg tablet,delayed 81 mg PO DAILY 05/03/25 05/03/25 05/03/25 History release lqlpctks-kr-bottw 300 mcg-K 60 1 tab PO DAILY 05/03/25 05/03/25 05/03/25 History mcg-lycop 600 mcg-lutein 300 mcg tablet (Centrum Silver Ultra Men's) omega-3 fatty acids 1,000 mg 1,000 mg PO DAILY 05/03/25 05/03/25 05/03/25 History capsule Physical Exam 2 Vital Signs: Vital Signs: Last Vital Signs Temp 97.6 F 05/07/25 07:19 Pulse 55 05/07/25 07:19 Resp 20 05/07/25 07:19 BP 162/84 H 05/07/25 07:19 Pulse Ox 94 05/07/25 07:19 O2 Del Method Nasal Cannula 05/07/25 07:19 O2 Flow Rate 2 05/07/25 07:19 BMI result Body Mass Index 39.2 Const: General: cooperative, comfortable, no acute distress, alert and awake Nutritional Appearance: obese Orientation/consciousness: patient oriented x3 HEENT: Head: Yes normocephalic and Yes atraumatic Neck: Neck: Yes trachea midline, Yes supple and Yes no JVD Resp: Effort & Inspection: normal respiratory effort Auscultation: clear to auscultation bilaterally Cardio: Jugular venous distension: no JVD Rate: regular rate Rhythm: r egular rhythm Heart sounds: S1 normal heart sound present, S2 normal heart sound present, no click, no gallops and no murmurs GI: Auscultation: normal bowel sounds Skin: General skin exam: no rashes or lesions noted Neuro: General: patient oriented x3 and no focal motor deficits Speech: A bnormal speech present Extrem: General: Yes no clubbing, cyanosis or edema Objective Labs and Meds 05/03/25 11:29 05/07/25 09:34 Lab results: Laboratory Results - last 24 hr 05/07/25 05/07/25 09:34 09:40 VBG pH 7.48 H VBG pCO2 55 VBG pO2 99 VBG HCO3 41 H VBG O2 Saturation 100.0 VBG Base Excess 14.9 Sodium 140 Potassium 3.6 Chloride 100 Carbon Dioxide 35 H Anion Gap 9 L BUN 12 Creatinine 0.89 Estim Creat Clear Calc 96.3 Estimated GFR > 60 Fasting Glucose 135 H Calcium 9.0 B-Natriuretic Peptide 20 Assessment and Plan (1) Acute heart failure with preserved ejection fraction: Status: Acute Patient presents with symptoms suggestive of acute congestive heart failure, LV ejection fraction within normal limits. He has most likely hypertensive heart disease/sleep apnea related heart disease. Continue CPAP therapy. In the long run needs to continue lose weight. Clinically appears to be euvolemic well compensated has been well diuresed. I would switch him to 40 mg of Lasix. Also start him on spironolactone 12.5 mg daily given his elevated blood pressure and add Jardiance 10 mg to his regimen. Continue other antihypertensive therapy. Discussed with him about low-salt diet. Currently still hypoxemic for unclear reason question underlying pulmonary parenchymal disease/obesity hypoventilation syndrome. Being discharged home on oxygen therapy. This will need to be monitored by Pulmonary team as an outpatient. Will set up for outpatient workup for ischemia given his risk factors and heart failure. Also follow-up outpatient for heart failure management. Encouraged to continue CPAP therapy. (2) TIA (transient ischemic attack): Status: Acute Patient present with symptoms suggestive of TIA with facial droop as well as dysarthria. Imaging has been negative. Noted for possible having PFO. He is at risk for atrial fibrillation given his risk factors as well. He will require further workup as outpatient. Discussed with him about the need for further workup given no obvious cause for the same. He does have nonobstructive disease in the carotid tree. I would suggest him to be on dual antiplatelet therapy as he was on aspirin therapy before. Statin therapy should be prescribed as well given his carotid disease. Will require outpatient MAYE and event monitoring. He would like to follow-up locally. Will sign of the case. Thank you for allowing me to partake in his care Procedures Date of Service Date of Service: 05/07/25
--- NOTE | 2025-05-07 12:29 | HO.PM.IMPN ---
Subjective Subjective Date of Service: 05/07/25 Interval History: no weakness or speech difficulty desaturates at night Review of Systems Review of Systems: Yes all other systems are reviewed and are negative Physical Exam Vital Signs: Vital Signs: Last Vital Signs Temp 97.8 F 05/07/25 11:20 Pulse 56 05/07/25 11:20 Resp 20 05/07/25 11:20 BP 146/80 H 05/07/25 11:20 Pulse Ox 94 05/07/25 11:20 O2 Del Method Nasal Cannula 05/07/25 11:20 O2 Flow Rate 2 05/07/25 11:20 BMI result Body Mass Index 39.2 Gen: in no acute distress HEENT: sclera anicteric, moist mucus membranes Neck: supple, no JVD Lungs: diminished Heart: regular rate and rhythm, no murmurs Abd: soft, non-tender, non-distended, obese Ext: trace bilateral leg edema Skin: warm/well-perfused Neuro: alert and oriented x3, no focal findings Psych: appropriate affect Objective Data Active Medications Acetaminophen (Acetaminophen 325 Mg Tablet) 650 mg PO Q6H PRN PRN Reason: Pain, Mild 1-3,fever,headache Amlodipine Besylate (Amlodipine Besylate 10 Mg Tablet) 10 mg PO DAILY [facility]; Protocol Last Admin: 05/07/25 09:14 Dose: 10 mg Documented By: ROCK Aspirin (Aspirin 81 Mg Tab.Chew) 81 mg PO DAILY [facility] Last Admin: 05/07/25 09:15 Dose: 81 mg Documented By: ROCK Atenolol (Atenolol 100 Mg Tablet) 100 mg PO DAILY [facility]; Protocol Last Admin: 05/07/25 07:33 Dose: Not Given Documented By: ROCK Non-Admin Reason: low hr Atorvastatin Calcium (Atorvastatin Calcium 40 Mg Tablet) 40 mg PO BEDTIME [facility] Last Admin: 05/06/25 19:50 Dose: 40 mg Documented By: KISHAN Calcium Carbonate (Calcium Carbonate 750 Mg Tab.Chew) 750 mg PO Q4H PRN PRN Reason: Heartburn Clopidogrel Bisulfate (Clopidogrel Bisulfate 75 Mg Tablet) 75 mg PO DAILY [facility] Enoxaparin Sodium (Enoxaparin Sodium 40 Mg/0.4 Ml Syringe) 40 mg SUBCUT Q24H [facility] Last Admin: 05/06/25 19:50 Dose: 40 mg Documented By: KISHAN Furosemide (Furosemide 20 Mg Tablet) 20 mg PO DAILY [facility]; Protocol Last Admin: 05/07/25 09:15 Dose: 20 mg Documented By: ROCK Magnesium Hydroxide (Milk Of Magnesia 30 Ml Oral.Susp) 30 ml PO DAILY PRN PRN Reason: Constipation Melatonin (Melatonin 3 Mg Tablet) 6 mg PO BEDTIME PRN PRN Reason: Insomnia Multivitamins/Vitamin C (Multivitamin Tablet) 1 tab PO DAILY [facility] Last Admin: 05/07/25 09:15 Dose: 1 tab Documented By: ROCK Sodium Chloride (0.9 % Sodium Chloride Flush 3 Ml Syringe) 3 ml IVFLUSH QSHIFT [facility] Last Admin: 05/07/25 12:22 Dose: Not Given Documented By: ROCK Non-Admin Reason: Previously Administered Timolol Maleate (Timolol Maleate 0.5 % Oph Taya 5 Ml Drbtl) 1 drop EYE-BOTH BID [facility] Last Admin: 05/07/25 09:14 Dose: 1 drop Documented By: ROCK Labs 05/03/25 11:29 05/07/25 09:34 Labs: Laboratory Results - last 24 hr 05/07/25 05/07/25 09:34 09:40 VBG pH 7.48 H VBG pCO2 55 VBG pO2 99 VBG HCO3 41 H VBG O2 Saturation 100.0 VBG Base Excess 14.9 Anion Gap 9 L Estim Creat Clear Calc 96.3 Estimated GFR > 60 Fasting Glucose 135 H Calcium 9.0 B-Natriuretic Peptide 20 Assessment and Plan (1) CHF (congestive heart failure): Status: Acute Plan d5 for 64yo M with HTN, ALLISON on CPAP presenting from PCP office with dyspnea, leg edema, resolved facial droop, and speech difficulty, found to be hypoxic, concern for CVA as well TIA possible PFO - dysarthria resolved, R-sided facial droop resolved; presented out of tPA window - CTA of head negative, CTA of head/neck showing 50% stenosis of right ICA ophthalmic segment due to calcified plaque - MRI brain normal - Neurology consulted, PT: [facility]/home PT for impaired gait, OT/INSTRUMENT MAKER pending - continue atorvastatin. Given that he had TIA despite taking ASA will add clopidogrel so he will be on DAPT - TTE 05/03/25: 1. Normal LV ejection fraction with impaired relaxation filling pattern 2. Mildly dilated left atrium next 3. Possible PFO present 4. Normal RV systolic pressure with mildly elevated right atrial pressures 5. No gross pericardial effusion - Cardiology consulted re possible PFO. Will require outpt MAYE. Plans to follow up with [facility] [place] [facility]. - within normal limits. He has most likely hypertensive heart disease/sleep apnea related heart disease. Continue CPAP therapy. In the long run needs to continue lose weight. Clinically appears to be euvolemic well compensated has been well diuresed. I would switch him to 40 mg of Lasix. Also start him on spironolactone 12.5 mg daily given his elevated blood pressure and add Jardiance 10 mg to his regimen. Continue other antihypertensive therapy. Discussed with him about low-salt diet. Currently still hypoxemic for unclear reason question underlying pulmonary parenchymal disease/obesity hypoventilation syndrome. Being discharged home on oxygen therapy. This will need to be monitored by Pulmonary team as an outpatient. Will set up for outpatient workup for ischemia given his risk factors and heart failure. Also follow-up outpatient for heart failure management. Encouraged to continue CPAP therapy. acute hypoxic respiratory failure due to new-onset CHF [acute/chronic HFpEF]and ALLISON/OHS - changed IV to PO furosemide; net negative 4L - TTE as above - per Cardiology, will add spironolactone and empagliflozin; will need outpt ischemic workup - supplemental O2, wean as tolerated; goal SaO2 88-92 as appears to have some CO2 retention; will need 2L O2 with ambulation and will perform overnight oximetry test tonight. May require BiPAP eventually. HTN - atenolol, amlodipine, adding spironolactone as above VTE ppx - enoxaparin dispo - home with [facility]NA In my clinical judgment, the patient requires continued inpatient hospitalization for the following reasons: hypoxia Total time managing care of this patient today: 40 minutes. Quality Stroke Does the patient have a stroke diagnosis?: No Reason for No Anti-thrombotic by Day Two: Contraindicated (Pt given aspirin; not a tNK candidate as outside of therapeutic window) VTE Prior VTE?: No VTE Risk Level:: Medical - moderate - high VTE Device Contraindication: Treatment Not Indicated VTE Drug Contraindication: N/A - Med Ordered
[2025-05-07] MEDS: Spironolactone 25 MG TABLET 12.5 MG PO (13:37)
[2025-05-07] MEDS: Clopidogrel Bisulfate 75 MG TABLET PO (13:37)
[2025-05-07] MEDS: Empagliflozin 10 MG TABLET PO (13:37)
[2025-05-07] MEDS: Enoxaparin Sodium 40 MG/0.4 ML SYRINGE SUBCUT (21:34)
[2025-05-07] MEDS: 0.9 % Sodium Chloride Flush 3 ML SYRINGE IVFLUSH (21:34)
[2025-05-07] MEDS: Atorvastatin Calcium 40 MG TABLET PO (21:34)
[2025-05-08] VITALS (10 sets, daily range): BP systolic 155–172; BP diastolic 74–88; PULSE 50–65; RESP 14–20; TEMP 36.2–36.7; O2SAT 90–97
[2025-05-08] MEDS: Clopidogrel Bisulfate 75 MG TABLET PO (09:32)
[2025-05-08] MEDS: Multivitamin TABLET 1 TAB PO (09:33)
[2025-05-08] MEDS: amLODIPine Besylate 10 MG TABLET PO (09:33)
[2025-05-08] MEDS: atenoloL 100 MG TABLET PO (09:33)
[2025-05-08] MEDS: Furosemide 40 MG TABLET PO (09:34)
[2025-05-08] MEDS: Spironolactone 25 MG TABLET 12.5 MG PO (09:34)
[2025-05-08] MEDS: Empagliflozin 10 MG TABLET PO (09:34)
[2025-05-08] MEDS: 0.9 % Sodium Chloride Flush 3 ML SYRINGE IVFLUSH ×3 (09:35→22:33)
[2025-05-08] MEDS: Aspirin 81 MG TAB.CHEW PO (09:35)
[2025-05-08] MEDS: timoloL maleate 0.5 % Oph Sol 5 ML DRBTL 1 DROP EYE-BOTH ×2 (09:38→22:33)
--- NOTE | 2025-05-08 12:40 | P.PNIM_ITS ---
Subjective Subjective Date of Service: 05/08/25 Interval History: feels well overnight oximetry was not done, unclear why not Review of Systems Review of Systems: Yes all other systems are reviewed and are negative Physical Exam 2 Vital Signs: Vital Signs: Last Vital Signs Temp 98.1 F 05/08/25 11:17 Pulse 60 05/08/25 11:17 Resp 18 05/08/25 11:17 BP 162/82 H 05/08/25 11:17 Pulse Ox 96 05/08/25 11:17 O2 Del Method Room Air 05/08/25 11:17 O2 Flow Rate 2 05/08/25 04:00 BMI result Body Mass Index 39.2 Gen: in no acute distress HEENT: sclera anicteric, moist mucus membranes Neck: supple, no JVD Lungs: diminished Heart: regular rate and rhythm, no murmurs Abd: soft, non-tender, non-distended, obese Ext: trace bilateral leg edema Skin: warm/well-perfused Neuro: alert and oriented x3, no focal findings Psych: appropriate affect Objective Data Active Medications Acetaminophen (Acetaminophen 325 Mg Tablet) 650 mg PO Q6H PRN PRN Reason: Pain, Mild 1-3,fever,headache Amlodipine Besylate (Amlodipine Besylate 10 Mg Tablet) 10 mg PO DAILY [facility]; Protocol Last Admin: 05/08/25 09:33 Dose: 10 mg Documented By: NAEL Aspirin (Aspirin 81 Mg Tab.Chew) 81 mg PO DAILY [facility] Last Admin: 05/08/25 09:35 Dose: 81 mg Documented By: NAEL Atenolol (Atenolol 100 Mg Tablet) 100 mg PO DAILY [facility]; Protocol Last Admin: 05/08/25 09:33 Dose: 100 mg Documented By: NAEL Atorvastatin Calcium (Atorvastatin Calcium 40 Mg Tablet) 40 mg PO BEDTIME [facility] Last Admin: 05/07/25 21:34 Dose: 40 mg Documented By: LEANN Calcium Carbonate (Calcium Carbonate 750 Mg Tab.Chew) 750 mg PO Q4H PRN PRN Reason: Heartburn Clopidogrel Bisulfate (Clopidogrel Bisulfate 75 Mg Tablet) 75 mg PO DAILY [facility] Last Admin: 05/08/25 09:32 Dose: 75 mg Documented By: NAEL Empagliflozin (Empagliflozin 10 Mg Tablet) 10 mg PO DAILY [facility] Last Admin: 05/08/25 09:34 Dose: 10 mg Documented By: NAEL Enoxaparin Sodium (Enoxaparin Sodium 40 Mg/0.4 Ml Syringe) 40 mg SUBCUT Q24H [facility] Last Admin: 05/07/25 21:34 Dose: 40 mg Documented By: LEANN Furosemide (Furosemide 40 Mg Tablet) 40 mg PO DAILY [facility]; Protocol Last Admin: 05/08/25 09:34 Dose: 40 mg Documented By: NAEL Magnesium Hydroxide (Milk Of Magnesia 30 Ml Oral.Susp) 30 ml PO DAILY PRN PRN Reason: Constipation Melatonin (Melatonin 3 Mg Tablet) 6 mg PO BEDTIME PRN PRN Reason: Insomnia Multivitamins/Vitamin C (Multivitamin Tablet) 1 tab PO DAILY [facility] Last Admin: 05/08/25 09:33 Dose: 1 tab Documented By: NAEL Sodium Chloride (0.9 % Sodium Chloride Flush 3 Ml Syringe) 3 ml IVFLUSH QSHIFT [facility] Last Admin: 05/08/25 09:35 Dose: 3 ml Documented By: NAEL Spironolactone (Spironolactone 25 Mg Tablet) 12.5 mg PO DAILY [facility]; Protocol Last Admin: 05/08/25 09:34 Dose: 12.5 mg Documented By: NAEL Timolol Maleate (Timolol Maleate 0.5 % Oph Taya 5 Ml Drbtl) 1 drop EYE-BOTH BID [facility] Last Admin: 05/08/25 09:38 Dose: 1 drop Documented By: NAEL Labs 05/03/25 11:29 05/07/25 09:34 Assessment and Plan (1) CHF (congestive heart failure): Status: Acute Plan d6 for 64yo M with HTN, ALLISON on CPAP presenting from PCP office with dyspnea, leg edema, resolved facial droop, and speech difficulty, found to be hypoxic, concern for CVA as well TIA possible PFO - dysarthria resolved, R-sided facial droop resolved; presented out of tPA window - CTA of head negative, CTA of head/neck showing 50% stenosis of right ICA ophthalmic segment due to calcified plaque - MRI brain normal - Neurology consulted, PT: [facility]/home PT for impaired gait, OT/FINANCIAL SERVICES CONSULTANT pending - continue atorvastatin. Given that he had TIA despite taking ASA will add clopidogrel so he will be on DAPT - TTE 05/03/25: 1. Normal LV ejection fraction with impaired relaxation filling pattern 2. Mildly dilated left atrium next 3. Possible PFO present 4. Normal RV systolic pressure with mildly elevated right atrial pressures 5. No gross pericardial effusion - Cardiology consulted re possible PFO. Will require outpt [facility]. Plans to follow up with [facility] [place] Card[facility]. - within normal limits. He has most likely hypertensive heart disease/sleep apnea related heart disease. Continue CPAP therapy. In the long run needs to continue lose weight. Clinically appears to be euvolemic well compensated has been well diuresed. I would switch him to 40 mg of Lasix. Also start him on spironolactone 12.5 mg daily given his elevated blood pressure and add Jardiance 10 mg to his regimen. Continue other antihypertensive therapy. Discussed with him about low-salt diet. Currently still hypoxemic for unclear reason question underlying pulmonary parenchymal disease/obesity hypoventilation syndrome. Being discharged home on oxygen therapy. This will need to be monitored by Pulmonary team as an outpatient. Will set up for outpatient workup for ischemia given his risk factors and heart failure. Also follow-up outpatient for heart failure management. Encouraged to continue CPAP therapy. acute hypoxic respiratory failure due to new-onset CHF [acute/chronic HFpEF]and ALLISON/OHS - changed IV to PO furosemide; net negative 7800 mL - TTE as above - per Cardiology, added spironolactone and empagliflozin; will need outpt ischemic workup - supplemental O2, wean as tolerated; goal SaO2 88-92 as appears to have some CO2 retention - severe nocturnal hypoxemia requiring up to 5-7L at night was reported; will perform overnight oximetry tonight to see if he needs O2 at night - should have outpt CPAP titration study; may require BiPAP HTN - atenolol, amlodipine, adding spironolactone as above VTE ppx - enoxaparin dispo - home with VNA In my clinical judgment, the patient requires continued inpatient hospitalization for the following reasons: hypoxia Total time managing care of this patient today: 40 minutes. Quality Stroke Does the patient have a stroke diagnosis?: No Reason for No Anti-thrombotic by Day Two: Contraindicated (Pt given aspirin; not a tNK candidate as outside of therapeutic window) VTE Prior VTE?: No VTE Risk Level:: Medical - moderate - high VTE Device Contraindication: Treatment Not Indicated VTE Drug Contraindication: N/A - Med Ordered
[2025-05-08] MEDS: Enoxaparin Sodium 40 MG/0.4 ML SYRINGE SUBCUT (22:30)
[2025-05-08] MEDS: Atorvastatin Calcium 40 MG TABLET PO (22:30)
--- NOTE | 2025-05-08 23:12 | PC.RT ---
Addendum entered by Adrian Lancaster 05/09/25 03:58: NOC oximetry ended at 0330 Original Note: Nocturnal oximetry started at 2315 pt on RA sat 91. RN aware
[2025-05-09 03:11] VITALS: BP 150/82; PULSE 51; RESP 18; TEMP 36.4; O2SAT 94
[2025-05-09 03:58] LABS: ABG Base Excess 10.6 mmol/L; ABG HCO3 37 mmol/L (22-26); ABG pCO2 58 mmHg (32-45); ABG pH 7.41 (7.35-7.45); ABG pO2 68 mmHg (83-108)
--- NOTE | 2025-05-09 06:18 | PC.NURSE ---
Pulse ox test done overnight and ABG collected by respiratory.
[2025-05-09 07:39] VITALS: BP 156/84; PULSE 58; RESP 20; TEMP 36.4; O2SAT 94
[2025-05-09 07:57] VITALS: BP 156/84; PULSE 58
[2025-05-09] MEDS: amLODIPine Besylate 10 MG TABLET PO (07:57)
[2025-05-09] MEDS: Empagliflozin 10 MG TABLET PO (07:57)
[2025-05-09] MEDS: atenoloL 100 MG TABLET PO (07:57)
[2025-05-09] MEDS: Furosemide 40 MG TABLET PO (07:57)
[2025-05-09] MEDS: Multivitamin TABLET 1 TAB PO (07:57)
[2025-05-09] MEDS: Clopidogrel Bisulfate 75 MG TABLET PO (07:57)
[2025-05-09] MEDS: 0.9 % Sodium Chloride Flush 3 ML SYRINGE IVFLUSH (07:57)
[2025-05-09] MEDS: Aspirin 81 MG TAB.CHEW PO (07:58)
[2025-05-09] MEDS: Spironolactone 25 MG TABLET 12.5 MG PO (07:58)
[2025-05-09] MEDS: timoloL maleate 0.5 % Oph Sol 5 ML DRBTL 1 DROP EYE-BOTH (07:59)
[2025-05-09 08:42] LABS: ABG Refer to POC result
[2025-05-09 10:46] VITALS: PULSE 54; PULSE 57; PULSE 67; O2SAT 91; O2SAT 94
[2025-05-09 11:22] VITALS: BP 156/81; PULSE 54; RESP 18; TEMP 36.3; O2SAT 93
--- NOTE | 2025-05-09 11:47 | P.F2F_ITS ---
Service Date Service Date: 05/09/25 Encounter Date of encounter: 05/09/25 Reasons for Services Signs and symptoms assessed: new onset CHF Reason for group home: medication management, medication treatment and teach disease management MD Overseeing Care: Dev Murray Homebound: Leaving the home is medically contraindicated at this time without the asist of a device and/or another person due th the listed conditions above and below. Reason homebound: shortness of breath with minimal effort and weakness related to hospital stay Certification: Based on the above findings, I certify that this patient is confined to the home and needs intermittent group home care, physical therapy and/or speech therapy, or continues to need occupational therapy. The patient is under my care, and I have initiated the establishment of the plan of care. The patient will be followed by a physician who will periodically review the plan of care. Time Spent With Patient Time: Total time managing care of this patient today ____ minutes.
--- NOTE | 2025-05-09 11:48 | PM.DS ---
DS: Providers Provider Date of Service: 05/09/25 Date of admission: 05/03/25 14:49 Date of discharge: 05/09/25 Primary care physician: Dev Murray MD Consults: 05/03/25 17:56 Consult to Neurology Routine Consulting Provider: [facility] Reason for consultation: Dysarthia, right-sided facial droop, ?CVA 05/06/25 13:56 Consult to Cardiology Routine Consulting Provider: [facility] Reason for consultation: came in with TIA, has possible PFO, known to pt DS: Diagnosis Discharge Diagnosis (1) Acute heart failure with preserved ejection fraction: Status: Acute (2) TIA (transient ischemic attack): Status: Acute (3) ALLISON (obstructive sleep apnea): Status: Acute (4) Nocturnal hypoxemia: Status: Acute (5) Chronic hypercapnic respiratory failure: Status: Acute (6) Obesity hypoventilation syndrome: Status: Acute DS: Summary Hospital Course Hospital Course: From the history and physical by the admitting hospitalist, MICHELLE Montana, 05/03/25: Pt is a 64-year-old male with a PMH significant for HTN and ALLISON on CPAP who presents to the ED from primary care visit for evaluation of multiple issues, including increased SOB, LLE, and garbled speech. Pt reports has been experiencing increased lower leg edema for the past 2-3 weeks, and increased SOB with a ?little bit? of nonproductive cough for the past week. Denies orthopnea. Pt lives with his sister and her family, who encouraged him to call and set up a PCP visit. Sister notes, however, this morning pt was also having difficulty with speaking and word finding. States he was just not ?speaking clearly? and she kept asking him ?are you okay? to which he responded that he was. When they presented to Dr. Murray's office the provider noted that he was having dysarthria, difficulty word finding, and questionable right-sided facial droop, and then sent him to the ED for further evaluation. Pt denies headache, acute vision changes, hemiplegia, or difficulty grasping objects. No significant ataxia. Denies chest pain/pressure, palpitations. No fever or chills. In the ED pt was initially tachypneic at 24 hypertensive at 183/89, and hypoxic as low as 86% on RA. Labs were significant for BNP 130, otherwise grossly unremarkable and around baseline for pt. No leukocytosis. Stable H&H. No significant electrolyte abnormalities. Renal function WNL. Hepatic function WNL. Troponin 3.8. Tested negative for flu, COVID, RSV. CXR showed mild cardiomegaly and pulmonary vascular congestion with trace pleural effusions in linear subsegmental atelectasis. CTA of head negative for acute intracranial abnormality. CTA of head/neck suggestive for interstitial pulmonary edema, but negative for significant stenosis, occlusion, dissection or aneurysm in the head or neck. Did find approximate 50% stenosis of right ICA Ophthalmology segment secondary to calcified plaque. EKG demonstrated sinus bradycardia of 51 with RBBB and left anterior fascicular block, similar to prior. Pt was treated in the ED with furosemide 20 mg IV. Pt is admitted to the hospital for treatment and further evaluation of acute hypoxic respiratory failure in the setting of new onset CHF as well as dysarthria and difficulty word finding concerning for possible acute CVA. 64yo M with HTN, ALLISON on CPAP presenting from PCP office with dyspnea, leg edema, resolved facial droop, and speech difficulty, found to be hypoxic, concern for CVA as well. He was admitted to the telemetry unit. Hospital course by problem: TIA possible PFO - Dysarthria resolved, R-sided facial droop resolved; presented out of tPA window - CTA of head negative, CTA of head/neck showing 50% stenosis of right ICA ophthalmic segment due to calcified plaque - MRI brain normal - Neurology consulted and no additional recommendations made. - continue atorvastatin. Given that he had TIA despite taking ASA will add clopidogrel so he will be on DAPT - TTE 05/03/25: 1. Normal LV ejection fraction with impaired relaxation filling pattern 2. Mildly dilated left atrium next 3. Possible PFO present 4. Normal RV systolic pressure with mildly elevated right atrial pressures 5. No gross pericardial effusion - Cardiology consulted re possible PFO. Will require outpt MAYE. Plans to follow up with [facility] Card[facility]. acute hypoxic respiratory failure due to new-onset CHF [acute/chronic HFpEF]and ALLISON/OHS - diuresed with IV furosemide then started on PO furosemide. Net negative 8840 mL over the course of the admission - per Cardiology, added spironolactone and empagliflozin; will need outpt ischemic workup - supplemental O2, wean as tolerated; goal SaO2 88-92 as appears to have some CO2 retention - severe nocturnal hypoxemia requiring up to 5-7L at night was reported; overnight oximetry was performed and he requires only 1L of O2 at night - should have outpt CPAP titration study; may require BiPAP eventually He was discharged home with VNA services for CHF monitoring and home PT. Time Attestation Discharge Coordination Time (in mins): 45 Quality: Safe Use of Opioids Does Pt have an Active Cancer Diagnosis on the Problem List?: No Quality: Stroke Does the patient have a stroke diagnosis?: No Physical Exam Vital Signs: Vital Signs: Last Vital Signs Temp 97.3 F 05/09/25 11:22 Pulse 54 05/09/25 11:22 Resp 18 05/09/25 11:22 BP 156/81 H 05/09/25 11:22 Pulse Ox 93 05/09/25 11:22 O2 Del Method Room Air 05/09/25 11:22 O2 Flow Rate 2 05/08/25 04:00 BMI result Body Mass Index 39.2 Gen: in no acute distress HEENT: sclera anicteric, moist mucus membranes Neck: supple, no JVD Lungs: diminished Heart: regular rate and rhythm, no murmurs Abd: soft, non-tender, non-distended, obese Ext: trace bilateral leg edema Skin: warm/well-perfused Neuro: alert and oriented x3, no focal findings Psych: appropriate affect DS: Data Data Completed and Pending Completed studies during hospitalization [Text1]: Laboratory Results WBC 10.9 X10*3/uL (4.8-10.8) H 05/03/25 11:29 RBC 5.09 X10*6/uL (4.60-5.80) 05/03/25 11:29 Hgb 15.6 g/dl (14.0-18.0) 05/03/25 11:29 Hct 44.7 % (42.0-52.0) 05/03/25 11:29 MCV 87.8 fL (80.0-98.0) 05/03/25 11:29 MCH 30.6 pg (27.0-33.0) 05/03/25 11:29 MCHC 34.9 g/dl (31.0-36.0) 05/03/25 11:29 RDW 14.9 % (11.0-16.0) 05/03/25 11:29 Plt Count 228 X10*3/uL (160-400) 05/03/25 11:29 MPV 9.3 fL (9.4-12.4) L 05/03/25 11:29 Immature Gran % (Auto) 0.4 % (0.0-0.4) 05/03/25 11:29 Neut % (Auto) 77.7 % (45-73) H 05/03/25 11:29 Lymph % (Auto) 11.7 % (20-40) L 05/03/25 11:29 [place] % (Auto) 8.6 % (2-11) 05/03/25 11:29 Eos % (Auto) 1.4 % (0-4) 05/03/25 11:29 Baso % (Auto) 0.2 % (0-2) 05/03/25 11:29 Lymph # (Auto) 1.3 X10*3/uL (1.2-4.9) 05/03/25 11:29 [place] # (Auto) 0.9 X10*3/uL (0.1-1.2) 05/03/25 11:29 Eos # (Auto) 0.2 X10*3/uL (0.0-0.4) 05/03/25 11:29 Baso # (Auto) 0.0 X10*3/uL (0.0-0.2) 05/03/25 11:29 Abs Immat Gran (auto) 0.04 X10*3/uL (0.00-0.03) H 05/03/25 11:29 Absolute Neuts (auto) 8.5 x10*3/uL (2.0-8.3) H 05/03/25 11:29 Absolute Nucleated RBC 0.000 X10*3/uL (0.0-0.012) 05/03/25 11:29 Nucleated RBC % (auto) 0.0 /100WBC (0.0-0.2) 05/03/25 11:29 Hold Purple Top SEE NOTE 05/06/25 06:38 PT 12.2 SEC (10.9-12.4) 05/03/25 11:29 INR 1.1 (0.9-1.1) 05/03/25 11:29 O2 Saturation 90.0 % 05/09/25 03:54 ABG pH at Pt Temp 7.41 (7.35-7.45) 05/09/25 03:54 ABG pCO2 at Pt Temp 58 mmHg (32-45) H 05/09/25 03:54 ABG pO2 at Pt Temp 68 mmHg (83-108) L 05/09/25 03:54 ABG HCO3 37 mmol/L (22-26) H 05/09/25 03:54 ABG Base Excess (Actual) 10.6 mmol/L 05/09/25 03:54 VBG pH 7.48 (7.32-7.43) H 05/07/25 09:40 VBG pCO2 55 mmHg 05/07/25 09:40 VBG pO2 99 mmHg 05/07/25 09:40 VBG HCO3 41 mmol/L (22-26) H 05/07/25 09:40 VBG O2 Saturation 100.0 % 05/07/25 09:40 VBG Base Excess 14.9 mmol/L 05/07/25 09:40 Sodium 140 mmol/L (135-145) 05/07/25 09:34 Potassium 3.6 mmol/L (3.3-5.1) 05/07/25 09:34 Chloride 100 mmol/L (96-108) 05/07/25 09:34 Carbon Dioxide 35 mmol/L (22-29) H 05/07/25 09:34 Anion Gap 9 (12-20) L 05/07/25 09:34 BUN 12 mg/dL (9-16) 05/07/25 09:34 Creatinine 0.89 mg/dL (0.5-1.4) 05/07/25 09:34 Estim Creat Clear Calc 96.3 05/07/25 09:34 Estimated GFR > 60 05/07/25 09:34 Random Glucose 82 mg/dL (60-115) 05/06/25 06:38 Fasting Glucose 135 mg/dL (60-99) H 05/07/25 09:34 Estimat Average Glucose 103 mg/dL 05/04/25 06:02 Hemoglobin A1c % 5.2 % (<6.0) 05/04/25 06:02 Lactic Acid 0.5 mmol/L (0.5-2.0) 05/03/25 11:29 Calcium 9.0 mg/dL (8.4-10.2) 05/07/25 09:34 Magnesium 2.1 mg/dL (1.6-2.6) 05/06/25 06:38 Total Bilirubin 0.7 mg/dL (0.0-1.0) 05/03/25 11:29 Direct Bilirubin 0.2 mg/dL (0.0-0.5) 05/03/25 11:29 AST 31 U/L (5-37) 05/03/25 11:29 ALT 25 U/L (0-40) 05/03/25 11:29 Alkaline Phosphatase 78 U/L (39-117) 05/03/25 11:29 Troponin I High Sens 3.8 ng/L (<3.5-35.0) 05/03/25 11:29 B-Natriuretic Peptide 20 pg/mL (<100) 05/07/25 09:34 Total Protein 8.2 g/dL (6.5-8.0) H 05/03/25 11:29 Albumin 4.4 g/dL (3.5-5.0) 05/03/25 11:29 Triglycerides 118 mg/dL (<150) 05/03/25 11:29 Cholesterol 189 mg/dL (<200) 05/03/25 11:29 LDL Cholesterol, Calc 129 mg/dL (<100) H 05/03/25 11:29 HDL Cholesterol 37 mg/dL (>40) L 05/03/25 11:29 Lipase 26 U/L (8-78) 05/03/25 11:29 Influenza Type A (PCR) NEGATIVE (Negative) 05/03/25 11:47 Influenza Type B (PCR) NEGATIVE (Negative) 05/03/25 11:47 RSV RNA Qual (PCR) NEGATIVE (Negative) 05/03/25 11:47 SARS-CoV-2 RNA (RT-PCR) NEGATIVE (Negative) 05/03/25 11:47 Impressions Chest X-Ray 05/03/25 11:21 IMPRESSION: Mild cardiomegaly and pulmonary vascular congestion with trace pleural effusions. Linear subsegmental atelectasis. Electronically signed by: Nikko Woodward MD 05/03/2025 12:34 PM EDT Head/Neck CTA 05/03/25 13:14 IMPRESSION: NONCONTRAST HEAD CT: 1. No intracranial hemorrhage or mass effect. No CT evidence of acute territorial infarct. CTA NECK: 1. No evidence of significant stenosis, occlusion, dissection, or aneurysm in the major cervical arterial vasculature. 2. There is a small left and tiny right pleural effusion in the imaged thorax. There are findings in the imaged lungs suggesting interstitial pulmonary edema. CTA HEAD: 1. No evidence of high-grade stenosis, occlusion, dissection, or aneurysm in the major intracranial arterial vasculature. 2. There is an approximate 50% stenosis of the right ICA ophthalmic segment due to calcified plaque. 3. Patent cortical and dural venous sinuses. Electronically signed by: Thomas Solis MD 05/03/2025 02:19 PM EDT Discharge Plan Discharge Anticipated Discharge Date/Time: 05/09/25 11:40 Patient Disposition: Home Health Service Discharge Diagnosis: transient ischemic attack possible patent foramen ovale congestive heart failure nocturnal hypoxia Referrals: Heena Felipe MD [Physician] - 2 Weeks Dev Murray MD [Primary Care Provider] - 1 Week Audie Harman MD [Physician] - 2 Weeks Discharge Medications: New furosemide 40 mg Tablet 40 mg PO DAILY Qty: 30 0RF Protocol: Hold for SBP< HOLD for SBP < : 90 atorvastatin 40 mg Tablet 40 mg PO BEDTIME Qty: 30 0RF clopidogrel 75 mg Tablet 75 mg PO DAILY Qty: 30 0RF spironolactone 25 mg Tablet 12.5 mg PO DAILY Qty: 15 0RF Protocol: Hold for SBP< HOLD for SBP < : 90 Jardiance 10 mg Tablet 10 mg PO DAILY Qty: 30 0RF Continued omega-3 fatty acids 1,000 mg Capsule 1,000 mg PO DAILY Centrum Silver Ultra Men's [id number] mcg Tablet 1 tab PO DAILY aspirin 81 mg Tablet,Delayed Release (Dr/Ec) 81 mg PO DAILY Qty: 30 0RF amlodipine 10 mg tablet 10 mg PO DAILY timolol maleate 0.5 % drops 1 drp ophthalmic (eye) BID atenolol 100 mg tablet 100 mg PO DAILY Discharge Orders: Discharge Order (Routine); Ordered 05/09/25 Ordered By: Joel Ordoñez Diet: Low salt diet Activity on Discharge: As tolerated Stand Alone Forms: Patient Portal Discharge page Print Language: Other Care Plan Goals: cardiovascular health Health Concerns: transient ischemic attack possible patent foramen ovale congestive heart failure nocturnal hypoxia Plan of Treatment: stroke prevention - aspirin 81 mg daily PLUS clopidogrel 75 mg daily - atorvastatin 40 mg daily - follow up with Dr Harman from [facility] Cardiology about possible patent foramen ovale; you will need transesophageal echocardiogram [endoscopy] - stress reduction, aerobic exercise, Mediterranean diet, adequate sleep, avoid alcohol and smoking CHF - Low-sodium diet: less than 2000 mg of sodium daily. Weigh yourself daily and call your doctor if your weight goes up by more than 3 lb/day or 5 lb/week. - furosemide 40 mg daily - spironolactone 12.5 mg daily - empagliflozin 10 mg daily - follow up with Dr Harman as above nocturnal hypoxia - oxygen 1L with your CPAP at night - goal SaO2 88-92% due to elevated CO2 - follow up with Dr Felipe in 2 weeks, consider CPAP titration study home with VNA services for CHF teaching/monitoring Please follow up with your primary care doctor within 1 week. Return to the hospital if you experience recurrent or worsening symptoms. Assessment: See Discharge Summary.
--- NOTE | 2025-05-09 12:11 | MHC.CM.PN ---
Addendum entered by Princess Rdz 05/09/25 13:29: Pt will have home care services from [facility], [facility] not able to offer PT for 10- 14 days. Original Note: Second IMM 05/09/25, Pt has been medically cleared for DC, he will go home via family transport and have home care services from [facility].
== END 2025-05-09 14:52 | disposition home health service (06) | DRG 291 ==
LOC: HO.ED 14:27 → HO.EDOVER 14:50 → HO.IMC 19:40
PROVIDERS: Admitting Provider Student in an Organized Health Care Education/Training Program; Emergency Provider Emergency Medicine; PCP Internal Medicine Medical Oncology; Visit Provider Family Medicine
DX: I11.0 Hypertensive heart disease with heart failure (principal); I50.31 Acute diastolic (congestive) heart failure; J96.01 Acute respiratory failure with hypoxia; G45.9 Transient cerebral ischemic attack, unspecified; Q21.12 Patent foramen ovale; R29.810 Facial weakness; R47.1 Dysarthria and anarthria; G47.33 Obstructive sleep apnea (adult) (pediatric); Z20.822 Contact with and (suspected) exposure to COVID-19; Z79.82 Long term (current) use of aspirin; Z79.899 Other long term (current) drug therapy
CPT/HCPCS: 0241U; 36415; 70496; 70498; 70551; 71046; 80048; 80061; 80076; 82803; 83036; 83605; 83690; 83735; 83880; 84484; 85025; 85610; 93005; 93306; 93970; 94660; 97116; 97161; 97165; 97530; 99285; J1650; J1938; Q9957; Q9967

== ENCOUNTER → 2025-05-03 11:05 | Outpatient (BNV) | payer MEDICARE, SELFPAY | PROVIDERS: Admitting Provider Student in an Organized Health Care Education/Training Program; Emergency Provider Emergency Medicine; PCP Internal Medicine Medical Oncology; Visit Provider Internal Medicine | DX: I45.2 Bifascicular block (principal); R00.1 Bradycardia, unspecified | CPT/HCPCS: 93010; 93306 ==

== ENCOUNTER → 2025-05-03 11:05 | Outpatient (BNV) | payer MEDICARE, SELFPAY | PROVIDERS: Emergency Provider Emergency Medicine; PCP Internal Medicine Medical Oncology; Visit Provider Radiology Diagnostic Radiology | DX: I65.21 Occlusion and stenosis of right carotid artery (principal); J34.89 Other specified disorders of nose and nasal sinuses; R29.810 Facial weakness; R47.1 Dysarthria and anarthria; R22.43 Localized swelling, mass and lump, lower limb, bilateral; R09.02 Hypoxemia; R06.02 Shortness of breath | CPT/HCPCS: 70496; 70498; 70551; 93970 ==

== ENCOUNTER → 2025-05-03 14:49 | Outpatient (BNV) | payer MEDICARE, SELFPAY | PROVIDERS: Admitting Provider Student in an Organized Health Care Education/Training Program; Emergency Provider Emergency Medicine; PCP Internal Medicine Medical Oncology; Visit Provider Internal Medicine Cardiovascular Disease | DX: I50.31 Acute diastolic (congestive) heart failure (principal); G45.9 Transient cerebral ischemic attack, unspecified | CPT/HCPCS: 99222 ==

== ENCOUNTER → 2025-05-03 14:49 | Outpatient (BNV) | payer MEDICARE, SELFPAY | PROVIDERS: Admitting Provider Student in an Organized Health Care Education/Training Program; Emergency Provider Emergency Medicine; PCP Internal Medicine Medical Oncology; Visit Provider Student in an Organized Health Care Education/Training Program | DX: I50.9 Heart failure, unspecified (principal) | CPT/HCPCS: 99223; 99232 ==

== ENCOUNTER → 2025-05-03 14:49 | Outpatient (BNV) | payer MEDICARE, SELFPAY | PROVIDERS: Admitting Provider Student in an Organized Health Care Education/Training Program; Emergency Provider Emergency Medicine; PCP Internal Medicine Medical Oncology; Visit Provider Psychiatry & Neurology Neurology | DX: I50.9 Heart failure, unspecified (principal); R47.1 Dysarthria and anarthria | CPT/HCPCS: 99222 ==

== ENCOUNTER 2025-05-28 14:37 | Outpatient (AMB) | payer MEDICARE, SELFPAY ==
--- NOTE | 2025-05-28 14:59 | MHC.OFFVIS ---
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 Present Allergies No Known Allergies Allergy (Verified 05/28/25 15:05) Medication List - Last Reconciled 05/28/25 by Rishi Reardon NP amlodipine 10 mg PO DAILY aspirin 81 mg PO DAILY atenolol 100 mg PO DAILY atorvastatin 40 mg PO BEDTIME clopidogrel 75 mg PO DAILY empagliflozin (Jardiance) 10 mg PO DAILY furosemide 40 mg See Protocol PO DAILY [id number] [id number] mcg (Centrum Silver Ultra Men's) 1 tab PO DAILY omega-3 fatty acids 1,000 mg PO DAILY spironolactone 12.5 mg See Protocol PO DAILY timolol maleate 0.5% 1 drp ophthalmic (eye) BID HPI Comments Details: This is a 64-year-old male patient coming in for a hospital discharge follow-up. Patient with history of hypertension, sleep apnea, and obesity. Patient was recently going to see his PCP for shortness of breath and leg edema where he was noted to be in congestive heart failure which is new. It was also noted that patient had some dysarthria with a questionable right-sided facial droop and speech impediment for which he was sent to the ER for further evaluation. Patient had an EKG that showed sinus bradycardia with right bundle branch and left anterior fascicular block which was similar to prior EKG from July 2023 and the echo study showed possible PFO. Today, patient reports feeling well overall and denies any cardiac symptoms including exertional chest pain, shortness of breath, palpitations, dizziness, orthopnea, PND, leg edema, presyncope, or syncope. Sister who accompanies him to his visit today notes that patient does have some developmental delay. Patient is otherwise compliant with all his medications. [facility] Medical History CHF (congestive heart failure) Hypoxia Leg edema ALLISON (obstructive sleep apnea) Obesity (BMI 30-39.9) Social History Household Members: Family Housing: House Do you presently have visiting nurse or other home services: No Alcohol intake: never Patient Tobacco Use Status: Never used Tobacco service: No Review of Systems ENT Reports dizziness Card Denies chest pain, Denies chest pain at rest, Denies chest pain with activity, Denies rapid heart rate, Denies pedal edema, Denies edema, Denies leg edema, Denies lightheadedness, Denies palpitations, Denies dyspnea, Denies dyspnea on exertion and Denies orthopnea Resp Denies cough, Denies dyspnea and Denies dyspnea on exertion GI Denies hematochezia and Denies change in stool character Musc Denies abnormal gait, Reports limited range of motion, Reports muscle cramps, Denies muscle weakness, Denies numbness, Denies radiating pain into limb, Denies stiffness and Denies tingling Neuro Denies abnormal gait, Reports dizziness, Denies numbness and Denies tingling Endo Denies palpitations Physical Exam Vital Signs: Last Vital Signs Pulse 69 05/28/25 15:00 BP 138/80 05/28/25 15:00 BMI result Body Mass Index 35.0 Const General: cooperative, healthy appearing, comfortable and no acute distress Orientation/consciousness: patient oriented x3 HEENT Head: Yes normal to inspection Neck Neck: Yes normal visual inspection, Yes trachea midline and Yes supple Chest Chest palpation & inspection: normal inspection of the chest Resp Effort & Inspection: normal respiratory effort Auscultation: clear to auscultation bilaterally, no crackles, no rales, no rhonchi and no wheezes Cardio Jugular venous distension: no JVD Palpation: normal PMI Rate: regular rate Rhythm: regular rhythm Heart sounds: S1 normal heart sound present, S2 normal heart sound present, no click, no gallops, no murmurs and no rubs Peripheral pulses: Peripheral pulses 2+ throughout GI Inspection: Yes normal to inspection Palpation (GI): Soft to palpation Auscultation: normal bowel sounds Skin General skin exam: no rashes or lesions noted Neuro General: patient oriented x3 Extrem General: Yes normal to inspection, No no pedal edema and No calf tenderness Psych Appearance: grossly normal Mental Status: mental status grossly normal Speech and movement: Normal speech and movement present Office Procedures EKG Details: EKG today showed normal sinus rhythm, 69 beats per minute, right bundle branch block and left anterior fascicular block consistent with bifascicular block, minimal voltage criteria for LVH, nonspecific ST-T [place], [place] [id number], Complete Assessment & Plan Assessment & Plan (1) Acute heart failure with preserved ejection fraction: Code(s): I50.31 - Acute diastolic (congestive) heart failure Category: Medical Plan: 05/03/2025-echo study showed normal LV systolic function with an ejection fraction between 65-70%, with impaired relaxation filling pattern, mildly dilated left atrium, possible PFO, and mildly elevated right atrial pressure. New onset of congestive heart failure for which patient was diuresed in the hospital. Today, clinically patient is euvolemic and stable. Continue current neurohormonal directed medical therapy including Jardiance, Lasix, spironolactone, and atenolol. We will periodically monitor his labs. Blood pressure within normal limit. Advised monitoring blood pressures at home with a goal of less than 130/80. Advised low-salt diet, wearing compression socks and elevating legs at rest, fluid restriction between 1.5-2 L daily, and daily weight monitoring. (2) TIA (transient ischemic attack): Code(s): G45.9 - Transient cerebral ischemic attack, unspecified Category: Medical Plan: Patient had presented with dysarthria and facial droop. CTA head and neck showed right ICA ophthalmic segment 50% stenosis due to calcified plaque. MRI brain was normal. On the TTE, question of possible PFO. We will arrange for a transesophageal echocardiogram with Dr. Harman to confirm presence of PFO. Given his sleep apnea, obesity, and dilated left atrium, patient is at high risk for AFib. We will proceed with a cardiac event monitoring. (3) Hyperlipidemia: Code(s): E78.5 - Hyperlipidemia, unspecified Category: Medical Plan: Most recent LDL at 129, not within goal of LDL less than 70. Continue dual antiplatelet therapy and high-dose statin therapy. We will repeat a lipid profile and liver function in 3 months. (4) ALLISON (obstructive sleep apnea): Code(s): G47.33 - Obstructive sleep apnea (adult) (pediatric) Category: Medical Plan: Continue CPAP therapy. Due to episodes of nocturnal hypoxemia, patient is now using supplemental oxygen with his CPAP for which he is following pulmonology to arrange mask adjustments. (5) Hospital discharge follow-up: Code(s): Z09 - Encounter for follow-up examination after completed treatment for conditions other than malignant neoplasm Plan: As above. Advised heart healthy diet, regular exercise, losing weight, med compliance, and management of vascular risk factors. Follow-up in 3 months. In the interim, patient will call the office with any concerns or change in symptoms. This note was generated using voice recognition software. While every effort has been made to ensure accuracy and proper development technologist, there may be occasional errors that could affect the content or meaning of the described symptoms. Orders: Orders ECG 30 day event monitor Today I48.91 - Unspecified atrial fibrillation, R00.2 - Palpitations AMB EKG-In Office Today I50.31 - Acute diastolic (congestive) heart failure Liver Panel 3 Months E78.5 - Hyperlipidemia, unspecified CA echo transesophageal Today I50.31 - Acute diastolic (congestive) heart failure Basic Metabolic Panel 3 Months I50.31 - Acute diastolic (congestive) heart failure Lipid Panel 3 Months E78.5 - Hyperlipidemia, unspecified Coding Level of Care Code Est Pt Level 4 (60021) Complex EM visit Add On G2211 Diagnoses Acute heart failure with preserved ejection fraction I50.31 TIA (transient ischemic attack) G45.9 Hyperlipidemia E78.5 ALLISON (obstructive sleep apnea) G47.33 Hospital discharge follow-up Z09 CPT Codes EKG - CPT: [id number], Complete ([id number]) Time Spent (min) 34 Comment Time spent in reviewing the chart, test results, assessment, counseling and documentation.
[2025-05-28 15:00] VITALS: BP 138/80; PULSE 69; BMI 35.0
--- OUTSIDE RECORDS SUMMARY | 2025-05-28 15:43 | XMS_ITS | Clinical Summary ---
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 Name Role Phone Unavailable Primary Care Provider Unavailabl e Social History Tobacco Use Types Packs/Day Years Used Date Smoking Tobacco: Never Assessed Sex and Gender Information Value Date Recorded Sex Assigned at Not on file Legal Sex Male 3:43 AM EST Gender Identity Not on file Sexual Orientation Not on file Plan of Treatment Health Maintenance Due Date Last Done Comments DTaP,Tdap,and Td Vaccines (1 - Tdap) 1978 Zoster Vaccines (1 of 2) 2009 Pneumococcal Vaccine: 50+ Ye ars (2 of 2 - PCV) 03/20/2021 03/20/2020 COVID-19 Vaccine (1 - 2023-2 5 season) 2024 Influenza Vaccine (Season Ended) 2025 RSV Immunization Adult Patie nts (1 - 1-dose 75+ series) 2034 Pneumococcal Vaccine: Pediat rics (0 to 5 Years) and At-Risk Patients (6 to 64 Years) Aged Out 03/20/2020 No longer eligi ble based on patient's age to complete this topic HIB Vaccines Aged Out No longer eligi ble based on patient's age to complete this topic HPV Vaccines Aged Out No longer eligi ble based on patient's age to complete this topic Hepatitis A Vaccines Aged Out No long er eligible based on patient's age to complete this topic Hepatitis B Vaccines Aged Out No long er eligible based on patient's age to complete this topic IPV Vaccines Aged Out No longer eligi ble based on patient's age to complete this topic MMR Vaccines Aged Out No longer eligi ble based on patient's age to complete this topic Meningococcal ACWY Vaccine Aged Out N o longer eligible based on patient's age to complete this topic Meningococcal B Vaccine Aged Out No l onger eligible based on patient's age to complete this topic RSV Immunization Patients Un michelet 20 months Aged Out No longer eligible b ased on patient's age to complete this topic Varicella Vaccines Aged Out No longer eligible based on patient's age to complete this topic
--- OUTSIDE RECORDS SUMMARY | 2025-05-28 15:43 | XMS_ITS | Clinical Summary ---
Author Organization [facility], Address [address] [place] [address] [place] [address] Phone Care Team Providers Care Taximeter Repairer Name Role Phone Dev Murray MD Primary Care Provider [phone] Allergies Active Allergy Reactions Criticality Noted Date [...] patient's age to complete this topic Insurance [facility] Care Teams Taximeter Repairer Relationship Specialty Start Date End Date Dev Murray MD [address] [place] [address] [address] [place], [place] PCP - General Medical Oncology 08/19/20
== END 2025-05-28 15:34 | disposition home or self-care (01) ==
LOC: HO.HCS 14:38
PROVIDERS: PCP Internal Medicine Medical Oncology
DX: I50.31 Acute diastolic (congestive) heart failure (principal); G45.9 Transient cerebral ischemic attack, unspecified; E78.5 Hyperlipidemia, unspecified; G47.33 Obstructive sleep apnea (adult) (pediatric); Z09 Encounter for follow-up examination after completed treatment for conditions other than malignant neoplasm
CPT/HCPCS: 93010; 99214; G2211

== ENCOUNTER → 2025-05-28 14:37 | Outpatient (BNVA) | payer MEDICARE, SELFPAY | PROVIDERS: PCP Internal Medicine Medical Oncology | DX: Z09 Encounter for follow-up examination after completed treatment for conditions other than malignant neoplasm (principal); I50.31 Acute diastolic (congestive) heart failure; G45.9 Transient cerebral ischemic attack, unspecified; E78.5 Hyperlipidemia, unspecified; G47.33 Obstructive sleep apnea (adult) (pediatric) | CPT/HCPCS: 93005; 99212 ==

== ENCOUNTER 2025-05-31 09:06 | Emergency (ER) | payer MEDICARE, SELFPAY ==
--- NOTE | ~2025-05-31 | XR_ITS ---
CLINICAL HISTORY: red rash. osteo? 3 view left foot Comparison: None provided Findings: No fractures or dislocations. Mild degenerative changes of the 1st metatarsophalangeal joint and of the interphalangeal joints. Calcaneal spurs are present. No ankle effusion. No radiopaque foreign body. IMPRESSION: Mild degenerative changes. No suspicious erosions. No acute process. This document has been electronically signed by: Suraj Siddiqui MD on 05/31/2025 11:10:08
--- NOTE | ~2025-05-31 | XR_ITS ---
CLINICAL HISTORY: rash? 3 view right foot Comparison: None provided Findings: No fractures or dislocations. Mild degenerative changes of the 1st metatarsophalangeal joint and of the interphalangeal joints. Plantar calcaneal spur. No ankle effusion. No radiopaque foreign body. IMPRESSION: Mild degenerative changes. No suspicious erosions. No acute process. This document has been electronically signed by: Suraj Siddiqui MD on 05/31/2025 11:09:47
[2025-05-31 09:11] VITALS: BP 165/78; PULSE 60; RESP 16; TEMP 36.4; O2SAT 95; BMI 36.7
--- OUTSIDE RECORDS SUMMARY | 2025-05-31 09:27 | XMS_ITS | Clinical Summary ---
Author Organization [facility] ity Address [address] [place] [address] Care Team Providers Care Cheese Cutter Name Role Phone Unavailable Primary Care Provider [...]
--- OUTSIDE RECORDS SUMMARY | 2025-05-31 09:27 | XMS_ITS | Clinical Summary ---
Author Organization [facility], Address [address] [place] [address] [place] [address] Phone Care Team Providers Care Optometry Doctor Name Role Phone Dev Murray MD Primary Care Provider [phone] Allergies Active Allergy Reactions Criticality Noted Date [...] patient's age to complete this topic Insurance [facility] Care Teams Optometry Doctor Relationship Specialty Start Date End Date Dev Murray MD [address] [place] [address] [address] [place], [place] PCP - General Medical Oncology 08/19/20
[2025-05-31 10:14] LABS: MANUAL DIFF FLAG NO
[2025-05-31 10:16] LABS: Hematocrit 41.3 % (42.0-52.0); Hemoglobin 14.4 g/dl (14.0-18.0); Imm Gran Abs Auto 0.01 X10*3/uL (0.00-0.03); Imm Gran Pct Auto 0.1 % (0.0-0.4); Lymphocytes Absolute Auto 0.9 X10*3/uL (1.2-4.9); Mean Corpuscular HGB Conc 34.9 g/dl (31.0-36.0); Mean Corpuscular Hemoglobin 29.9 pg (27.0-33.0); Mean Corpuscular Volume 85.9 fL (80.0-98.0); NRBC Abs Auto 0.000 X10*3/uL (0.0-0.012); NRBC Pct Auto 0.0 /100WBC (0.0-0.2); Platelet Count 216 X10*3/uL (160-400); Red Blood Count 4.81 X10*6/uL (4.60-5.80); White Blood Count 7.6 X10*3/uL (4.8-10.8)
[2025-05-31 10:28] LABS: INTERNATIONAL NORM RATIO 1.0 (0.9-1.1); Prothrombin Time 11.6 SEC (10.9-12.4)
[2025-05-31 10:30] LABS: Alanine Aminotransferase 34 U/L (0-40); Albumin Level 4.5 g/dL (3.5-5.0); Alkaline Phosphatase 72 U/L (39-117); Anion Gap 14 (12-20); Aspartate Amino Transferase 37 U/L (5-37); Blood Urea Nitrogen 23 mg/dL (9-16); Calcium 9.8 mg/dL (8.4-10.2); Carbon Dioxide 27 mmol/L (22-29); Chloride 105 mmol/L (96-108); Creatinine Clr Calc Pharmacy 64.5; Estimated Glomerular Filt Rate > 60; Partial Thromboplastin Time 37.1 SEC (26.0-36.8); Potassium 4.5 mmol/L (3.3-5.1); Sodium 141 mmol/L (135-145); Total Protein 8.2 g/dL (6.5-8.0)
--- NOTE | 2025-05-31 10:47 | ED.GENADULT ---
HPI - General Adult General Chief complaint: Skin/Abscess/Foreign Body Stated complaint: inflamed foot Time Seen by Provider: 05/31/25 09:15 Source: patient Mode of arrival: ambulatory Limitations: no limitations History of Present Illness ED Provider: Sg Ontiveros HPI narrative: 64 yold male with pmh of hyperlipidemia, TIA, ALLISON, chornic hypercapnic respiratory failure presents to the ED for red spots rash on foot, but negative for pain fever chills or itchiniess. Patient denies any red streaks, calf pain, recent trauma, open wounds, sores, pus dischage, or foul odor. Related Data Home Medications ?Medication ?Instructions ?Recorded ?Confirmed amlodipine 10 mg tablet 10 mg PO DAILY 10/22/20 05/28/25 timolol maleate 0.5 % eye drops 1 drp ophthalmic (eye) BID 10/22/20 05/28/25 atenolol 100 mg tablet 100 mg PO DAILY 12/12/23 05/28/25 owegednp-lq-xvliv 300 mcg-K 60 1 tab PO DAILY 05/03/25 05/28/25 mcg-lycop 600 mcg-lutein 300 mcg tablet (Centrum Silver Ultra Men's) omega-3 fatty acids 1,000 mg 1,000 mg PO DAILY 05/03/25 05/28/25 capsule Previous Rx's ?Medication ?Instructions ?Recorded aspirin 81 mg tablet,delayed 81 mg PO DAILY #30 tabs 05/09/25 release atorvastatin 40 mg tablet 40 mg PO BEDTIME #30 tabs 05/09/25 clopidogrel 75 mg tablet 75 mg PO DAILY #30 tabs 05/09/25 empagliflozin 10 mg tablet 10 mg PO DAILY #30 tabs 05/09/25 (Jardiance) furosemide 40 mg tablet 40 mg PO DAILY #30 tabs 05/09/25 spironolactone 25 mg tablet 12.5 mg PO DAILY #15 tabs 05/09/25 prednisone 20 mg tablet 40 mg (2 x 20 mg) PO DAILY 5 days 05/31/25 #10 tabs Allergies Allergy/AdvReac Type Severity Reaction Status Date / Time No Known Allergies Allergy Verified 05/31/25 09:13 Review of Systems Review of Systems: red spots on foot Yes all other systems are reviewed and are negative PMFSH Past Medical History Medical History CHF (congestive heart failure) Hypoxia Leg edema ALLISON (obstructive sleep apnea) Obesity (BMI 30-39.9) Social History Social History Household Members: Family Housing: House Do you presently have visiting nurse or other home services: No Alcohol intake: never Patient Tobacco Use Status: Never used Tobacco service: No Physical Exam ED Vital Signs: Vital Signs - 24 hr 05/31/25 09:11 Temperature 97.5 F Pulse Rate 60 Respiratory Rate 16 Blood Pressure 165/78 H Pulse Oximetry 95 Oxygen Delivery Method Room Air BMI result Body Mass Index 36.7 Const General: cooperative, healthy appearing, comfortable, no acute distress, well developed, alert, awake and Physically active Orientation/consciousness: patient oriented x3 HENMT Head: Yes normal to inspection, Yes No palpable skull fracture present, Yes normocephalic and Yes atraumatic Eyes General: appearance normal, both eyes and all related structures Neck Neck: Yes normal visual inspection, Yes full ROM, Yes no lymphadenopathy, Yes no meningeal signs, Yes trachea midline, Yes supple, No anterior neck swelling and No tender Chest Chest palpation & inspection: normal inspection of the chest and normal palpation of entire chest wall Resp Effort & Inspection: normal respiratory effort and able to speak in complete sentences Auscultation: clear to auscultation bilaterally Cardio Jugular venous distension: no JVD Heart sounds: S1 normal heart sound present and S2 normal heart sound present GI Inspection: Yes normal to inspection Palpation (GI): Soft to palpation, not firm, nontender, no guarding and not rigid General: Yes no CVA tenderness Back/Spine/Pelvis Back: no CVA tenderness and No back tenderness Skin General skin exam: no rashes or lesions noted, elasticity normal and turgor normal Neuro General: patient oriented x3, gait normal, tone normal, moves all extremities, Normal light touch and pain sensation, no meningeal signs, no focal motor deficits, CN's II-XI intact bilaterally and normal sensation to monofilament Extrem Other: Negative for any warmth, pus discharge, foul odor, ulcers, red streaks, ecchymosois, or open wounds. rest of extremity is normal. motor, neuro, and vascualr exam is inact. General: Yes normal to inspection and Yes full ROM Psych Appearance: grossly normal, well kempt and not disheveled Medical Decision Making Medical Decision Making [facility] Narrative: 64-year-old male history TIA in the heart failure presents to ED for red spots on foot not itching or warm. Negative for any pus discharge foul odor open ulcers. Labs x-ray ordered. 12:07PM: Xrays negative osteomyelitits. Negative for elevated WBC. ESR, CRP elevated. Indicates more possible vasculitis. not suspecting DVT, Celluliits, lymphangitis, arterial occlsuion, osteomyleitits, necortizing facittis, or any other life threatening eitology. Patient explained worrisome signs and informed to return to the ED. Will discharge with steroids accoriding up tot date Differential Diagnosis Differential Diagnoses: The differential diagnosis associated with the presentation includes (Athlete's foot, vasculitis, thrombocytopenia, colitis,) Admission/Observation Consideration of admission/observation: Escalation of care including admission/observation considered Lab Data [facility] Lab Attestation statement: I reviewed the patient's lab results. 05/31/25 09:53 05/31/25 09:53 Labs: Lab Results 05/31/25 Range/Units 09:53 WBC 7.6 (4.8-10.8) X10*3/uL RBC 4.81 (4.60-5.80) X10*6/uL Hgb 14.4 (14.0-18.0) g/dl Hct 41.3 L (42.0-52.0) % MCV 85.9 (80.0-98.0) fL MCH 29.9 (27.0-33.0) pg MCHC 34.9 (31.0-36.0) g/dl RDW 14.0 (11.0-16.0) % Plt Count 216 (160-400) X10*3/uL MPV 9.7 (9.4-12.4) fL Immature Gran % (Auto) 0.1 (0.0-0.4) % Neut % (Auto) 78.2 H (45-73) % Lymph % (Auto) 12.0 L (20-40) % [place] % (Auto) 7.6 (2-11) % Eos % (Auto) 1.8 (0-4) % Baso % (Auto) 0.3 (0-2) % Lymph # (Auto) 0.9 L (1.2-4.9) X10*3/uL [place] # (Auto) 0.6 (0.1-1.2) X10*3/uL Eos # (Auto) 0.1 (0.0-0.4) X10*3/uL Baso # (Auto) 0.0 (0.0-0.2) X10*3/uL Abs Immat Gran (auto) 0.01 (0.00-0.03) X10*3/uL Absolute Neuts (auto) 6.0 (2.0-8.3) x10*3/uL Absolute Nucleated RBC 0.000 (0.0-0.012) X10*3/uL Nucleated RBC % (auto) 0.0 (0.0-0.2) /100WBC ESR 44 H (0-15) MM/HR PT 11.6 (10.9-12.4) SEC INR 1.0 (0.9-1.1) APTT 37.1 H (26.0-36.8) SEC Sodium 141 (135-145) mmol/L Potassium 4.5 D (3.3-5.1) mmol/L Chloride 105 (96-108) mmol/L Carbon Dioxide 27 (22-29) mmol/L Anion Gap 14 (12-20) BUN 23 H (9-16) mg/dL Creatinine 1.20 (0.5-1.4) mg/dL Estim Creat Clear Calc 64.5 Estimated GFR > 60 Random Glucose 108 (60-115) mg/dL Calcium 9.8 D (8.4-10.2) mg/dL Total Bilirubin 0.6 (0.0-1.0) mg/dL AST 37 (5-37) U/L ALT 34 (0-40) U/L Alkaline Phosphatase 72 (39-117) U/L C-Reactive Protein 0.89 H (< or = 0.50) mg/dL Total Protein 8.2 H (6.5-8.0) g/dL Albumin 4.5 (3.5-5.0) g/dL Independent Interpretation I performed an independent interpretation of an: Plain X-Ray Radiology Impression Discussion of test interpretation with radiology: I have reviewed the radiologist's reading. Independent Historian Clinical information obtained from an independent historian. History obtained from or confirmed by: Other (patient) Prescription Management I considered prescription management with: Other (steroids) Discharge Plan Discharge Clinical Impression: Vasculitis, Rash Patient Disposition: Home, Self-Care Instructions: Acute Rash (ED) Additional Instructions: Presently labs imaging does not indicate bone infection or skin infection. Elevated ESR CRP probabaly indicates a form of vasculitis due to cauterization of rash. Recommend follow-up with PCP. Return to the ED immediately for any swelling of lower extremity, red rash, red streaks, warmth, coldness, bluish black discoloration, fever, chills, chest pain or shortness of breath. Prescriptions: New prednisone 20 mg tablet 40 mg PO DAILY 5 Days Qty: 10 0RF No Action omega-3 fatty acids 1,000 mg Capsule 1,000 mg PO DAILY Centrum Silver Ultra Men's 193-62-400-300 mcg Tablet 1 tab PO DAILY furosemide 40 mg Tablet 40 mg PO DAILY Qty: 30 0RF Protocol: Hold for SBP< HOLD for SBP < : 90 atorvastatin 40 mg Tablet 40 mg PO BEDTIME Qty: 30 0RF clopidogrel 75 mg Tablet 75 mg PO DAILY Qty: 30 0RF spironolactone 25 mg Tablet 12.5 mg PO DAILY Qty: 15 0RF Protocol: Hold for SBP< HOLD for SBP < : 90 Jardiance 10 mg Tablet 10 mg PO DAILY Qty: 30 0RF aspirin 81 mg Tablet,Delayed Release (Dr/Ec) 81 mg PO DAILY Qty: 30 0RF amlodipine 10 mg tablet 10 mg PO DAILY timolol maleate 0.5 % drops 1 drp ophthalmic (eye) BID atenolol 100 mg tablet 100 mg PO DAILY Referrals: Dev Murray MD [Primary Care Provider, Internal Medicine] - 2 days Referral Note: Foot rash/vasculitis Clinical Impression: Rash; Vasculitis Interventions: ED Discharge Assessment Last Done: 05/31/25 12:40 Discharge Date/Time: 05/31/25 12:43 Print Language: Irish
[2025-05-31 11:00] VITALS: BP 159/88; PULSE 56; RESP 16; TEMP 36.4; O2SAT 95
[2025-05-31 12:39] VITALS: BP 159/88; PULSE 56; RESP 16; TEMP 36.4; O2SAT 95
[2025-05-31 12:40] VITALS: BP 159/88; PULSE 56; RESP 16; TEMP 36.4; O2SAT 95
== END 2025-05-31 12:43 | disposition home or self-care (01) ==
PROVIDERS: Physician Assistant; Emergency Provider Emergency Medicine Emergency Medical Services; PCP Internal Medicine Medical Oncology
DX: L95.9 Vasculitis limited to the skin, unspecified (principal); R21 Rash and other nonspecific skin eruption; M79.672 Pain in left foot; M79.671 Pain in right foot; Z79.899 Other long term (current) drug therapy; Z51.81 Encounter for therapeutic drug level monitoring
CPT/HCPCS: 36415; 73620; 80053; 85025; 85610; 85652; 85730; 86140; 99284

== ENCOUNTER → 2025-05-31 10:44 | Outpatient (BNV) | payer MEDICARE, SELFPAY | PROVIDERS: Emergency Provider Emergency Medicine Emergency Medical Services; PCP Internal Medicine Medical Oncology; Visit Provider Radiology Vascular & Interventional Radiology | DX: R21 Rash and other nonspecific skin eruption (principal) | CPT/HCPCS: 73620 ==

== ENCOUNTER → 2025-06-10 13:43 | Outpatient (REF) | payer MEDICARE, SELFPAY ==
--- NOTE | 2025-06-10 13:46 | HM_ITS ---
Cardiac event monitor Indication: Palpitations Technique: Patient was hooked up to cardiac event monitor from 06/10/2025 to 07/10/2025 for total period of 30 days. Total wear time was 17.5 days. Conclusion: Baseline was predominantly normal sinus rhythm 98.8% of the time. Average heart rate of 58 beats per minute with minimal heart rate of 46 beats per minute sinus bradycardia and maximum heart rate 117 beats per minute in sinus tachycardia. Frequent sinus bradycardia noted, 83.85% of the time heart rate below 60 beats per minute. There were no significant pauses or av conduction abnormalities noted. Occasional PVCs noted all of them isolated with total burden of 1.15%. No significant tachycardia noted. Patient reported 1 symptom of chest tightness that correlated with sinus bradycardia. Patient's 1 episode without reported symptoms correlated with isolated PVCs. Twenty-five other events with no symptoms specified correlated with sinus bradycardia. Conclusion: 1. Baseline was normal sinus rhythm with predominant sinus bradycardia without significant pauses 2. Occasional PVCs noted isolated 3. Symptom of chest tightness correlated with sinus bradycardia, most of his other triggered events without reported symptoms also correlated to sinus bradycardia with 1 triggered event correlating with isolated PVCs MTDD
--- OUTSIDE RECORDS SUMMARY | 2025-06-10 14:56 | XMS_ITS | Clinical Summary ---
Author Organization [facility] ity Address [address] [place] [address] Care Team Providers Care Manufacturing Production Manager Name Role Phone Unavailable Primary Care Provider [...] - 2023-2 5 season) 2024 Influenza Vaccine (#1) 2025 RSV Immunization Adult Patie nts (1 - 1-dose 75+ series) 2034 HIB Vaccines Aged Out No longer eligi [...] complete this topic RSV Immunization Patients Un micehlet 20 months Aged Out No longer eligible b ased on patient's age to complete this topic Varicella Vaccines Aged Out No longer eligible based on patient's age to complete this topic
--- OUTSIDE RECORDS SUMMARY | 2025-06-10 14:56 | XMS_ITS | Clinical Summary ---
Author Organization [facility], Address [address] [place] [address] [place] [address] Phone Care Team Providers Care Physical Therapy Coordinator Name Role Phone Dev Murray MD Primary Care Provider [phone] Allergies Active Allergy Reactions Criticality Noted Date [...] Colorectal Cancer Screening: Sigmoidoscopy 2008 Influenza Vaccine (#1) 2025 0, 07/27/2019 Hepatitis B Vaccine Aged Out No longe r eligible based on patient's age to complete this topic Insurance [facility] Care Teams Physical Therapy Coordinator Relationship Specialty Start Date End Date Dev Murray MD [address] [place] [address] [address] [place], [place] PCP - General Medical Oncology 08/19/20
== END ==
LOC: HO.CARD 13:43
DX: R00.2 Palpitations (principal); I48.91 Unspecified atrial fibrillation
CPT/HCPCS: 93270

== ENCOUNTER → 2025-06-10 13:46 | Outpatient (BNV) | payer MEDICARE, SELFPAY | PROVIDERS: Visit Provider Internal Medicine Cardiovascular Disease | DX: I49.3 Ventricular premature depolarization (principal); R07.9 Chest pain, unspecified; R00.1 Bradycardia, unspecified | CPT/HCPCS: 93272 ==

== ENCOUNTER 2025-06-18 10:15 | Outpatient (AMB) | payer MEDICARE, MEDICAID, SELFPAY ==
[2025-06-18 10:30] VITALS: BP 177/86; PULSE 70; O2SAT 95; BMI 38.2
--- NOTE | 2025-06-18 10:30 | A.OFFVIS_ITS ---
Vital Signs 06/18/25 10:30 Height 5 ft 4 in Weight 222 lb 10.67 oz BMI 38.2 BP 177/86 H Blood Pressure Location Lt brachial Position Sitting Pulse 70 Pulse Source Pulse Oximeter Pulse Oximetry (%) 95 Oxygen Delivery Method Room Air Intake Visit Reasons: Obstructive sleep apnea Intake Note: pt is here for follow up from for chf, and is now on oxygen with his cpap, he has a question on water in his cpap. Oxygen is on 2 liters. 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 Assembly Required: No Allergies No Known Allergies Allergy (Verified 06/18/25 10:56) Medication List - Last Reconciled 06/18/25 by Heena Felipe MD amlodipine 10 mg PO DAILY aspirin 81 mg PO DAILY atenolol 100 mg PO DAILY atorvastatin 40 mg PO BEDTIME clopidogrel 75 mg PO DAILY empagliflozin (Jardiance) 10 mg PO DAILY furosemide 40 mg See Protocol PO DAILY [id number]-ajr-fjdfy-[id number]-ckqrehr-wremne 589-87-385-300 mcg (Centrum Silver Ultra Men's) 1 tab PO DAILY omega-3 fatty acids 1,000 mg PO DAILY spironolactone 25 mg See Protocol PO DAILY timolol maleate 0.5% 1 drp ophthalmic (eye) BID Do you need a note to return to daycare/school/sports/work: No HPI HPI Obstructive sleep apnea: Details: This 65 years old gentleman is a known case of obstructive sleep apnea and uses CPAP at night. He was admitted to the hospital for treatment of congestive heart failure about 5 weeks ago. and at the time of discharge he had overnight oximetry recording which showed that he had nocturnal hypoxemia with O2 sat below 88% for 122 minutes. He was started on oxygen 2 L/minute along with the CPAP. Since he has been at home he is somewhat confused about the oxygen, so has not been using. He has been using his CPAP regularly every night and sleeps well. He denies any daytime sleepiness. [facility] Medical History CHF (congestive heart failure) Hypoxia Leg edema ALLISON (obstructive sleep apnea) Obesity (BMI 30-39.9) Social History Household Members: Family Housing: House Do you presently have visiting nurse or other home services: No Alcohol intake: never Patient Tobacco Use Status: Never used Tobacco service: No Review of Systems Const All systems reviewed & are unremarkable except as noted in HPI and below Eyes Reports no additional complaints ENT Reports no additional complaints Card Denies chest pain, Denies irregular heart rhythm, Reports leg edema (Mild) and Denies dyspnea on exertion Resp Denies cough, Denies dyspnea on exertion and Denies wheezing GI Reports no additional complaints Reports no additional complaints Musc Reports no additional complaints Skin/Breast Reports system reviewed and no additional complaints, except as documented Neuro Reports no additional complaints Endo Reports no additional complaints Aller/Immun Reports no additional complaints and Denies wheezing Physical Exam Vital Signs: Last Vital Signs Pulse 70 06/18/25 10:30 BP 177/86 H 06/18/25 10:30 Pulse Ox 95 06/18/25 10:30 Oxygen Delivery Method Room Air 06/18/25 10:30 BMI result Body Mass Index 38.2 No interval weight loss is noted Const General: healthy appearing, comfortable and no acute distress Orientation/consciousness: patient oriented x3 HEENT Head: Yes normal to inspection General nose exam: No nasal polyps present and No nasal discharge present Face and sinus: Yes sinuses nontender Mouth: oropharynx normal Throat: Yes posterior oropharynx normal Eyes General: appearance normal, both eyes and all related structures Neck Neck: Yes normal visual inspection, Yes no lymphadenopathy, Yes trachea midline and Yes no JVD Thyroid: Thyroid normal Chest Chest palpation & inspection: normal inspection of the chest, normal palpation of entire chest wall and no tenderness Resp Effort & Inspection: normal respiratory effort Auscultation: clear to auscultation bilaterally, no crackles and no wheezes Percussion: percussion normal Cardio Palpation: normal PMI Rate: regular rate Rhythm: regular rhythm Heart sounds: no gallops and no murmurs Peripheral pulses: Peripheral pulses 2+ throughout GI Palpation (GI): Soft to palpation, nontender, No hepatosplenomegaly present and no masses Auscultation: normal bowel sounds Back/Spine/Pelvis Thoracic/Lumbar Spine: thoracic and lumbar spine normal to inspection Skin General skin exam: no rashes or lesions noted Neuro General: patient oriented x3 and no focal motor deficits Cranial nerves: Yes CN's II-XII intact bilaterally Extrem General: Yes normal to inspection, Yes no calf tenderness and Yes edema (1 + pitting edema of legs ) Psych Appearance: grossly normal and well kempt Speech and movement: Normal speech and movement present Results Reviewed Results Reviewed: Compliance report in the last 30 nights is reviewed. He used 21/30 nights, 70%. Prior to that he did not use it because he was in the hospital. Average use it per night 7 hours pressure used is 10-15 cm. There is only minimal air leak. Residual AHI 8.6 mostly obstructive but some central events. Assessment & Plan Assessment & Plan (1) ALLISON (obstructive sleep apnea): Comment: He does have chronic obstructive sleep apnea. Uses CPAP regularly. But his the residual AHI remains high. Code(s): G47.33 - Obstructive sleep apnea (adult) (pediatric) Category: Medical Plan: Advised to keep on using CPAP regularly. Also advised to use O2 2 L/minute along with the CPAP. He does have the adapter to hook the oxygen and should be able to use it without any problem. He needs to put distilled water in the tank of the CPAP device but does not need any water for the oxygen (2) Obesity hypoventilation syndrome: Comment: He has mostly abdominal obesity. And tends to have hypoventilation, which is corrected by using the CPAP Code(s): E66.2 - Morbid (severe) obesity with alveolar hypoventilation Category: Medical Plan: Talked about his weight but I do not think he is going to be able to lose much weight. When admitted for congestive heart failure and treated with diuresis he did lose weight (3) Nocturnal hypoxemia: Comment: He does have nocturnal hypoxemia even with the use of CPAP. Overnight oximetry recording showed that his O2 sat was below 88% for 122 minutes. So he was prescribed oxygen 2 L/minute to use along with the CPAP. Code(s): G47.34 - Idiopathic sleep related nonobstructive alveolar hypoventilation Category: Medical Plan: As above, encouraged to keep on using CPAP daily. Use O2 2 L/minute along with the CPAP daily every night. Medications: Changed From spironolactone 12.5 mg See Protocol PO DAILY 15 tabs 0RF To spironolactone 25 mg See Protocol PO DAILY Coding Level of Care Code Est Pt Level 3 (33690) Diagnoses ALLISON (obstructive sleep apnea) G47.33 Obesity hypoventilation syndrome E66.2 Nocturnal hypoxemia G47.34
--- OUTSIDE RECORDS SUMMARY | 2025-06-18 11:20 | XMS_ITS | Clinical Summary ---
Author Organization [facility], Address [address] [place] [address] [place] [address] Phone Care Team Providers Care Retail Sales Teammate Name Role Phone Dev Murray MD Primary Care Provider [phone] Allergies Active Allergy Reactions Criticality Noted Date [...] [facility] Care Teams Retail Sales Teammate Relationship Specialty Start Date End Date Dev Murray MD [address] [place] [address] [address] [place], [place] PCP - General Medical Oncology 08/19/20
--- OUTSIDE RECORDS SUMMARY | 2025-06-18 11:20 | XMS_ITS | Clinical Summary ---
Author Organization [facility] ity Address [address] [place] [address] Care Team Providers Care Guest Relations Executive Name Role Phone Unavailable Primary Care Provider [...] Vaccine (1 - 2023-2 5 season) 2024 Depression Screening 11/28/2024 Influenza Vaccine (#1) 2025 RSV Immunization Adult [...]
== END 2025-06-18 10:54 | disposition home or self-care (01) ==
LOC: HO.HPS 10:16
PROVIDERS: PCP Internal Medicine Medical Oncology; Visit Provider Internal Medicine
DX: G47.33 Obstructive sleep apnea (adult) (pediatric) (principal); E66.2 Morbid (severe) obesity with alveolar hypoventilation; G47.34 Idiopathic sleep related nonobstructive alveolar hypoventilation
CPT/HCPCS: 99213

== ENCOUNTER → 2025-06-18 10:15 | Outpatient (BNVA) | payer MEDICARE, MEDICAID, SELFPAY | PROVIDERS: PCP Internal Medicine Medical Oncology; Visit Provider Internal Medicine | DX: G47.33 Obstructive sleep apnea (adult) (pediatric) (principal); Z99.89 Dependence on other enabling machines and devices; G47.34 Idiopathic sleep related nonobstructive alveolar hypoventilation; E66.01 Morbid (severe) obesity due to excess calories | CPT/HCPCS: 99212 ==

== ENCOUNTER 2025-06-26 08:33 | Day surgery (SDC) | payer MEDICARE, MEDICAID, SELFPAY ==
--- OUTSIDE RECORDS SUMMARY | 2025-06-13 06:56 | XMS_ITS | Clinical Summary ---
Author Organization [facility], Address [address] [place] [address] [place] [address] Phone Care Team Providers Care Delivery Clerk Name Role Phone Dev Murray MD Primary Care Provider [phone] Allergies Active Allergy Reactions Criticality Noted Date [...] [facility] Care Teams Delivery Clerk Relationship Specialty Start Date End Date Dev Murray MD [address] [place] [address] [address] [place], [place] PCP - General Medical Oncology 08/19/20
--- OUTSIDE RECORDS SUMMARY | 2025-06-13 06:56 | XMS_ITS | Clinical Summary ---
Author Organization [facility] Address [address] [place] [address] Care Team Providers Care Solution Analyst Name Role Phone Unavailable Primary Care Provider [...]
[2025-06-24 14:02] VITALS: BMI 35.0
--- NOTE | 2025-06-25 08:38 | P.CONAN_ITS ---
HPI - Anesthesia Eval Consult details Narrative: 65yo M for Transesophageal Echocardiogram [facility] admit 04/2025 with new onset heart failure, TIA. ? PFO on echo [facility] Cardiology f/u 05/2025, pt was euvolemic and asymptomatic. Anesthesia Pre-Procedure Meds Is the patient on any of the following meds?: SGLT2 Inhib PMFSH Active Problems Active Problems: All Active Problems Hyperlipidemia (Acute) Obesity hypoventilation syndrome (Acute) Chronic hypercapnic respiratory failure (Acute) Nocturnal hypoxemia (Acute) TIA (transient ischemic attack) (Acute) Acute heart failure with preserved ejection fraction (Acute) ALLISON (obstructive sleep apnea) (Acute) Obesity (BMI 30-39.9) (Acute) Past Medical History Medical History TIA (transient ischemic attack) Hyperlipidemia CHF (congestive heart failure) Leg edema ALLISON (obstructive sleep apnea) Obesity (BMI 30-39.9) Surgical History Surgical History (Updated 06/26/25 @ 09:08 by Aby Sancehz RN) No pertinent past surgical history Social History Social History Household Members: Family Housing: House Are you a primary direct care professional to a significant other at home: No Do you presently have visiting nurse or other home services: No Alcohol intake: never Patient Tobacco Use Status: Never used Tobacco Second Hand Smoke Exposure: No Use of substances other than those prescribed or required for medical reasons: No Have you been hit, kicked, punched, or otherwise hurt by someone within the past year? If so, by whom?: No Are you DNR?: No Advance Directives: No Advance Directives Information Provided: Yes Advance Directives on File: No Poor oral hygiene: No service: No Meds Allergies Allergy/AdvReac Type Severity Reaction Status Date / Time No Known Allergies Allergy Verified 06/18/25 10:56 Home Medications ?Medication ?Instructions ?Recorded ?Confirmed ?Last Taken ?Type amlodipine 10 mg tablet 10 mg PO DAILY 10/22/20 07/06/25/25 History timolol maleate 0.5 % eye drops 1 drp ophthalmic (eye) BID 10/22/20 06/26/25 Unknown History atenolol 100 mg tablet 100 mg PO DAILY 12/12/2306/25/25 History [id number] 300 mcg-K 60 1 tab PO DAILY 05/03/25 06/26/25 06/25/25 History mcg-lycop 600 mcg-lutein 300 mcg tablet (Centrum Silver Ultra Men's) omega-3 fatty acids 1,000 mg 1,000 mg PO DAILY 5 06/26/25 05/03/25 History capsule spironolactone 25 mg tablet 25 mg PO DAILY 06/18/25 Unknown History Exam Height,Weight and Vital Signs: Height 5 ft 6 in Weight 98.43 kg Pertinent Lab Results Pertinent Lab Results: Laboratory Tests 05/31/25 09:53 WBC 7.6 Hgb 14.4 Hct 41.3 L Plt Count 216 Sodium 141 Potassium 4.5 D Chloride 105 Carbon Dioxide 27 BUN 23 H Creatinine 1.20 Narrative Narrative: 05/03/2025-echo study showed normal LV systolic function with an ejection fraction between 65-70%, with impaired relaxation filling pattern, mildly dilated left atrium, possible PFO, and mildly elevated right atrial pressure. EKG 05/2025 normal sinus rhythm, 69 beats per minute, right bundle branch block and left anterior fascicular block consistent with bifascicular block, minimal voltage criteria for LVH, nonspecific ST-T wave, normal WV, and corrected QT Assessment and Plan Assessment Anesthesia Assessment: Chart Reviewed
--- NOTE | 2025-06-25 15:40 | MHC.SHP ---
Pre-Procedural Eval Section A - 24 Hr Update-Section A only Date of Service: 06/25/25 The patient is an INPATIENT: No Changes since office visit: Yes Patient answered all questions; No Cold of Flu in the past 2 weeks, No New Medical Problems and No Changes in Medication The patient has been examined within 24 hours of the surgical procedure. The History & Physical has been completed within 30 days and I have reviewed it.: Yes Section B - Complete if H&P > 30 days Chief Complaint: Patent foramen ovale Allergies: Allergies Allergy/AdvReac Type Severity Reaction Status Date / Time No Known Allergies Allergy Verified 06/18/25 10:56 Plan I have reviewed the history and physical and performed a pertinent physical examination on my patient. No changes have occurred unless specified. Time Spent With Patient Time: Total time managing care of this patient today ____ minutes.
[2025-06-26] VITALS (8 sets, daily range): BP systolic 119–155; BP diastolic 73–87; PULSE 50–62; RESP 16; TEMP 36.1–36.4; O2SAT 94–98
--- NOTE | 2025-06-26 08:04 | HO.ANESPROP2 ---
[facility] Active Problems Active Problems: All Active Problems (Updated 06/24/25 @ 13:59 by Marlene Morel RN) Hyperlipidemia (Acute) Obesity hypoventilation syndrome (Acute) Chronic hypercapnic respiratory failure (Acute) Nocturnal hypoxemia (Acute) TIA (transient ischemic attack) (Acute) Acute heart failure with preserved ejection fraction (Acute) ALLISON (obstructive sleep apnea) (Acute) Obesity (BMI 30-39.9) (Acute) Past Medical History Medical History TIA (transient ischemic attack) Hyperlipidemia CHF (congestive heart failure) Leg edema ALLISON (obstructive sleep apnea) Obesity (BMI 30-39.9) Functional capacity: independent ambulation Family History Family history of problems with anesthesia: No Surgical History Surgical History (Updated 06/26/25 @ 09:08 by Aby Sanchez RN) No pertinent past surgical history History of Problems with Anesthesia: Yes Social History Social History Household Members: Family Housing: House Are you a primary manager medicare to a significant other at home: No Do you presently have visiting nurse or other home services: No Alcohol intake: never Patient Tobacco Use Status: Never used Tobacco Second Hand Smoke Exposure: No service: No Meds Allergies Allergy/AdvReac Type Severity Reaction Status Date / Time No Known Allergies Allergy Verified 06/18/25 10:56 Active Medications: Current Medications Sodium Chloride (0.9 % Sodium Chloride Flush 3 Ml Syringe) [facility] Medications ?Medication ?Instructions ?Recorded ?Confirmed ?Last Taken ?Type amlodipine 10 mg tablet 10 mg PO DAILY 10/22/20 06/24/25 05/03/25 History timolol maleate 0.5 % eye drops 1 drp ophthalmic (eye) BID 10/22/20 06/24/25 Unknown History atenolol 100 mg tablet 100 mg PO DAILY 12/12/23 06/24/25 05/03/25 History [id number]-[id number] 300 mcg-K 60 1 tab PO DAILY 05/03/25 06/24/25 05/03/25 History mcg-lycop 600 mcg-lutein 300 mcg tablet (Centrum Silver Ultra Men's) omega-3 fatty acids 1,000 mg 1,000 mg PO DAILY 05/03/25 06/24/25 05/03/25 History capsule spironolactone 25 mg tablet 25 mg PO DAILY 06/18/25 06/24/25 Unknown History Exam Height,Weight and Vital Signs: Height 5 ft 6 in Weight 98.43 kg Airway Mallampati Class: III TM Dist: >3cm Neck ROM: Full Heart: irreg. Lungs: CTA Assessment and Plan Assessment Anesthesia Assessment: Anesthesia Plan Discussed and Chart Reviewed Final Anesthetic Review Family History of Problems with Anesthesia: No History of Problems with Anesthesia: Yes NPO: Yes ASA Class: III Final Preanesthetic Review: Meds/Allgs Chart Reviewed, Consent Obtained/Reviewed and Anes Risks/Benef Reviewed Patient Risk: Intermediate Procedure Risk: Intermediate Anesthetic Plan Anesthetic Plan: GA Disposition: Standard PACU
[2025-06-26] MEDS: Lactated Ringers 1,000 ML 50 ML IVCONT (09:24)
--- NOTE | 2025-06-26 09:30 | CA_ITS ---
Transesophageal Echocardiogram Patient (Last, First, Middle): Earl Bob M Gender: Male Date of : 1960 Age: 65 Procedure Date: 06/26/2025 Procedure Type: Transesophageal Echocardiogram Location: [facility] Height: 177.8 cm Weight: 98.43 kg BSA: 2.16 m2 Heart Rate: bpm Records Manager: TO Referring MD: Audie Harman MD Marketing Systems Manager: Audie Harman MD Symptoms: TIA Conclusion: ??? 1. No intracardiac shunting 2. Normal LV ejection fraction of 60 65% 3. No intracardiac thrombi, masses, vegetations 4. Mild aortic and mitral regurgitation 5. Mild atherosclerotic changes noted in the ascending aorta 6. No gross pericardial effusion Findings Procedure Information Consent was obtained prior to the procedure. Pre MAYE oral cavity was checked and revealed significant overcrowding. The adult 3D probe was passed with minimal difficulty. This was a technically good study. Left Ventricle Normal left ventricular size and systolic function. There is mildly increased left ventricular wall thickness. The visually estimated ejection fraction is between 60-65%. Spectral Doppler is indicative of an impaired relaxation filling pattern. There is no evidence of a thrombus in the left ventricle. No left ventricular masses or thrombi noted Right Ventricle Normal right ventricular cavity size and systolic function. There is a prominent moderator band seen in the right ventricle. Atria The left atrium is mildly dilated. There is no evidence of interatrial shunt. There is no evidence of a patent foramen ovale. There is no evidence of thrombus or mass in the left atrium. left atrium was identified multiple views with no thrombi or masses noted. The left upper, right upper and right lower pulmonary vein draining normally into the left atrium. The left atrial appendage was identified multiple views without any thrombi or masses. Delayed transition of bubbles noted in his left atrial most consistent with pulmonary AV malformation. The right atrium is normal in size. There is no evidence of thrombus or mass in the right atrium. The IVC and SVC drained normally into the right atrium. The no thrombi masses noted. Right atrial appendage was free of any thrombus or masses. Aortic Valve Normal aortic valve structure and function. There is no aortic valve stenosis. There is no evidence of a mass on the aortic valve. There is mild aortic valve regurgitation. Mitral Valve There is mild anterior and posterior mitral leaflet thickening. There is mild mitral valve regurgitation. There is no mitral valve stenosis. There is no mass noted on the mitral valve. Pulmonic Valve The pulmonic valve is likely normal. There is trace pulmonic valve regurgitation. Tricuspid Valve Normal tricuspid valve structure. There is trace tricuspid valve regurgitation. There is no evidence of a mass on the tricuspid valve. Great Vessels All visible segments of the aorta are normal in size. The pulmonary artery was not well visualized. Small plaque is seen in the sino tubular ridge and arch. Venous The inferior vena cava is normal in size and collapses greater than 50% with inspiration. Pericardium/Pleural There is no evidence of pericardial effusion. Updated by Audie Harman on 05:02 PM with Status of Final Audie Harman MD electronically signed on 06/26/2025 5:02:13 PM with status of Final
--- OUTSIDE RECORDS SUMMARY | 2025-07-08 20:00 | XMS_ITS | Clinical Summary ---
Author Organization Unknown Care Team Providers Care Assistant Women'S Soccer Coach Name Role Phone ELIF ARANA, WOOD Unavailable Unavailable LORD ABREU, MARTÍN Unavailable Unavailable CHARITO OSULLIVANN, SANTY Unavailable Unavailable KALEIGH PT, CLEVE Unavailable Unavailable TEVIN HERBARIUM WORKER, SAMANTHA Unavailable Unavailable Payers Payer Name Policy Type Policy Number Effective Date Expira tion Date [facility] [id number] Problems Condition Name Condition Details Condition Category Status Onset Date Resolution Date Last Treatment Date Treating Clinician Comments HYPERTENSIVE HEART DISEASE WITH HEART FAILURE Active 05-09 00:00: 00 ACUTE ON CHRONIC DIASTOLIC (CONGESTIVE) HEART FAILURE Active 05-03 00:00: 00 OBSTRUCTIVE SLEEP APNEA (ADULT) (PEDIATRIC) Active 05-03 00:00: 00 MORBID (SEVERE) OBESITY WITH ALVEOLAR HYPOVENTILAT ION Active 05-03 00:00: 00 CHRONIC RESPIRATORY FAILURE WITH HYPERCAPNIA Active 05-03 00:00: 00 DEPENDENCE ON SUPPLEMENTAL OXYGEN Active 11-28 00:00: 00 PRSNL HX OF TIA (TIA), AND CEREB INFRC W/O RESID DEFICITS Active 05-03 00:00: 00 ASSISTED (CURRENT) USE OF ANTITHROMBOT ICS/ANTIPLAT ELETS Active 11-28 00:00: 00 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 Ordering Clinician Indication Dosage Frequency Signature (SIG) Comments Components atorvastati n 40 mg tablet 05-09 00:00: 00 Yes [id number] CHOLESTEROL 1 tablet DAILY 1 tablet DAILY (route: oral) Med Classific ation: Cardiovas cular Therapy Agents clopidogrel 75 mg tablet 05-09 00:00: 00 Yes [id number] BLOOD THINNER 1 tablet DAILY 1 tablet DAILY (route: oral) Med Classific ation: Hematolog ical Agents furosemide 40 mg tablet 05-09 00:00: 00 Yes [id number] EDEMA 1 tablet DAILY 1 tablet DAILY (route: oral) Med Classific ation: Cardiovas cular Therapy Agents Jardiance 10 mg tablet 05-09 00:00: 00 Yes [id number] DM 1 tablet DAILY 1 tablet DAILY (route: oral) Med Classific ation: Endocrine spironolact one 25 mg tablet 05-09 00:00: 00 Yes [id number] EDEMA 0.5 tablet DAILY 0.5 tablet DAILY (route: oral) Med Classific ation: Cardiovas cular Therapy Agents aspirin 81 mg tablet,corey yed release 05-11 00:00: 00 Yes [id number] HEART HEALTH 1 tablet DAILY 1 tablet DAILY (route: oral) Med Classific ation: Hematolog ical Agents oxygen gas for inhalation 05-11 00:00: 00 Yes [id number] SUPPLEMENT 1 Liter BEDTIME 1 Liter BEDTIME (route: inhalation ) Med Classific ation: Medical Supplies and Durable Medical Equipment (DME) timolol 0.5 % eye drops 05-11 00:00: 00 Yes [id number] GLAUCOMA 1 drops 2 TIMES DAILY 1 drops 2 TIMES DAILY (route: ophthalmic (eye)) Med Classific ation: Ophthalmi c Agents amlodipine 10 mg tablet 05-11 00:00: 00 Yes [id number] HTN 1 tablet DAILY 1 tablet DAILY (route: oral) Med Classific ation: Cardiovas cular Therapy Agents atenolol 100 mg tablet 05-11 00:00: 00 Yes [id number] HTN 1 tablet DAILY 1 tablet DAILY (route: oral) Med Classific ation: Cardiovas cular Therapy Agents Fish Oil 1,000 mg (120 mg-180 mg) capsule 05-11 00:00: 00 Yes [id number] SUPPLEMENT 1 capsule DAILY 1 capsule DAILY (route: oral) Med Classific ation: Cardiovas cular Therapy Agents Multivitami n 50 Plus tablet 05-11 00:00: 00 Yes [id number] SUPPLEMENT 1 tablet DAILY 1 tablet DAILY (route: oral) Med Classific ation: Electroly te Balance-N utritiona l Products Vital Signs Vital Name Observation Time Observation Value Commen ts Temperature 2025-06-12 10:18:00.000 97.3 [degF] Temperature 2025-06-04 08:39:00.000 97.1 [degF] Temperature 2025-05-29 14:31:00.000 97.6 [degF] Temperature 2025-05-24 09:28:00.000 97.1 [degF] Temperature 2025-05-16 13:28:00.000 97 [degF] Temperature 2025-05-13 15:04:00.000 97.7 [degF] Temperature 2025-05-11 11:16:00.000 97.7 [degF] BMI (%) 2025-05-11 10:47:10.000 37 kg/m2 Height 2025-05-11 10:47:05.000 65 [in_us] Pulse 2025-06-12 10:24:00.000 50 /min Pulse 2025-06-04 08:39:00.000 64 /min Pulse 2025-05-29 14:31:00.000 80 /min Pulse 2025-05-24 09:28:00.000 76 /min Pulse 2025-05-16 13:28:00.000 60 /min Pulse 2025-05-13 15:04:00.000 62 /min Pulse 2025-05-11 11:16:00.000 60 /min O2 Saturation (%) 2025-06-12 10:18:00.000 99 % O2 Saturation (%) 2025-06-04 08:39:00.000 93 % O2 Saturation (%) 2025-05-29 14:31:00.000 96 % O2 Saturation (%) 2025-05-24 09:28:00.000 93 % O2 Saturation (%) 2025-05-16 13:28:00.000 94 % O2 Saturation (%) 2025-05-13 15:04:00.000 96 % Respirations 2025-06-12 10:18:00.000 18 /min Respirations 2025-06-04 08:39:00.000 18 /min Respirations 2025-05-29 14:31:00.000 18 /min Respirations 2025-05-24 09:28:00.000 18 /min Respirations 2025-05-16 13:28:00.000 18 /min Respirations 2025-05-13 15:04:00.000 18 /min Respirations 2025-05-11 11:16:00.000 18 /min Weight (lbs) 2025-06-12 10:23:00.000 216 [lb_av] Weight (lbs) 2025-06-04 08:44:00.000 217 [lb_av] Weight (lbs) 2025-05-29 14:34:00.000 216 [lb_av] Weight (lbs) 2025-05-24 09:31:00.000 218 [lb_av] Weight (lbs) 2025-05-16 14:02:00.000 219 [lb_av] Weight (lbs) 2025-05-13 15:04:00.000 221.6 [lb_av] Weight (lbs) 2025-05-11 10:47:10.000 224 [lb_av] Systolic Blood Pressure 2025-06-12 10:18:00.000 124 mm [Hg] Systolic Blood Pressure 2025-06-04 08:39:00.000 118 mm [Hg] Systolic Blood Pressure 2025-05-29 14:31:00.000 120 mm [Hg] Systolic Blood Pressure 2025-05-24 09:28:00.000 122 mm [Hg] Systolic Blood Pressure 2025-05-16 13:47:00.000 122 mm [Hg] Systolic Blood Pressure 2025-05-13 15:04:00.000 136 mm [Hg] Systolic Blood Pressure 2025-05-11 11:16:00.000 140 mm [Hg] Diastolic Blood Pressure 2025-06-12 10:18:00.000 70 mm [Hg] Diastolic Blood Pressure 2025-06-04 08:39:00.000 68 mm [Hg] Diastolic Blood Pressure 2025-05-29 14:31:00.000 70 mm [Hg] Diastolic Blood Pressure 2025-05-24 09:28:00.000 70 mm [Hg] Diastolic Blood Pressure 2025-05-16 13:47:00.000 64 mm [Hg] Diastolic Blood Pressure 2025-05-13 15:04:00.000 70 mm [Hg] Diastolic Blood Pressure 2025-05-11 11:16:00.000 84 mm [Hg] Plan of Treatment Planned Activity Planned Date Details Comments Future Scheduled Test RN TO OBSE RVE, ASSESS, EVALUATE, AND DEVELOP AN INDIVIDUALIZED PLAN OF CARE. AGENCY MAY ACCEPT ORDERS FROM CONSULTING PHYSICIANS RN TO OBSERVE AND ASSESS, EDUCATIONAL RESOURCE COORDINATOR/PROTOTYPE MODEL MAKER TO OBSERVE FOR RISK FOR FALLS AND INSTRUCT IN FALL PREVENTION, HOME SAFETY, MEDICATION MANAGEMENT, INFECTION PREVENTION, AND NUTRITION MANAGEMENT. RN/EDUCATIONAL RESOURCE COORDINATOR/PROTOTYPE MODEL MAKER NURSE MAY PERFORM O2 SATURATION LEVEL ON ADMISSION AND PRN FOR RESP STATUS CHANGES FOR RN TO ASSESS/EDUCATIONAL RESOURCE COORDINATOR TO OBSERVE PATIENT, WITH NOTIFICATION TO THE PHYSICIAN IF SATURATION IS 90% IN THE ABSENCE OF MORE SPECIFIC PARAMETERS FROM THE PHYSICIAN. AGENCY MAY PERFORM A RESUMPTION OF CARE VISIT FOLLOWING ANY HOSPITAL ADMISSION. RN/EDUCATIONAL RESOURCE COORDINATOR/PROTOTYPE MODEL MAKER TO MONITOR CO-MORBID CONDITIONS LISTED ON THE PLAN OF CARE AND ANY NEW CONDITIONS THAT PRESENT THEMSELVES DURING THIS EPISODE TO IDENTIFY CHANGES AND INTERVENE TO MINIMIZE COMPLICATIONS. [code = RN TO OBSERVE, ASSESS, EVALUATE, AND DEVELOP AN INDIVIDUALIZED PLAN OF CARE. AGENCY MAY ACCEPT ORDERS FROM CONSULTING PHYSICIANS RN TO OBSERVE AND ASSESS, EDUCATIONAL RESOURCE COORDINATOR/PROTOTYPE MODEL MAKER TO OBSERVE FOR RISK FOR FALLS AND INSTRUCT IN FALL PREVENTION, HOME SAFETY, MEDICATION MANAGEMENT, INFECTION PREVENTION, AND NUTRITION MANAGEMENT. RN/EDUCATIONAL RESOURCE COORDINATOR/PROTOTYPE MODEL MAKER NURSE MAY PERFORM O2 SATURATION LEVEL ON ADMISSION AND PRN FOR RESP STATUS CHANGES FOR RN TO ASSESS/EDUCATIONAL RESOURCE COORDINATOR TO OBSERVE PATIENT, WITH NOTIFICATION TO THE PHYSICIAN IF SATURATION IS 90% IN THE ABSENCE OF MORE SPECIFIC PARAMETERS FROM THE PHYSICIAN. AGENCY MAY PERFORM A RESUMPTION OF CARE VISIT FOLLOWING ANY HOSPITAL ADMISSION. RN/EDUCATIONAL RESOURCE COORDINATOR/PROTOTYPE MODEL MAKER TO MONITOR CO-MORBID CONDITIONS LISTED ON THE PLAN OF CARE AND ANY NEW CONDITIONS THAT PRESENT THEMSELVES DURING THIS EPISODE TO IDENTIFY CHANGES AND INTERVENE TO MINIMIZE COMPLICATIONS.] Future Scheduled Test RISK FOR H OSPITALIZATION; RN TO ASSESS/TEACH, PROTOTYPE MODEL MAKER/EDUCATIONAL RESOURCE COORDINATOR TO OBSERVE/TEACH PATIENT/CAREGIVER ON RISK FOR HOSPITALIZATION/EMERGENCY ROOM VISITS, TEACH SIGNS AND SYMPTOMS THAT PUT PATIENT AT RISK, WHEN TO NOTIFY NURSE/PHYSICIAN OF COMPLICATIONS/DECLINE, AND WHEN TO CALL 911. [code = RISK FOR HOSPITALIZATION; RN TO ASSESS/TEACH, PROTOTYPE MODEL MAKER/EDUCATIONAL RESOURCE COORDINATOR TO OBSERVE/TEACH PATIENT/CAREGIVER ON RISK FOR HOSPITALIZATION/EMERGENCY ROOM VISITS, TEACH SIGNS AND SYMPTOMS THAT PUT PATIENT AT RISK, WHEN TO NOTIFY NURSE/PHYSICIAN OF COMPLICATIONS/DECLINE, AND WHEN TO CALL 911.] Future Scheduled Test MEDICATION MANAGEMENT; RN/EDUCATIONAL RESOURCE COORDINATOR/PROTOTYPE MODEL MAKER TO REVIEW MEDICATIONS FOR INTERACTIONS, EFFECTIVENESS OF DRUG THERAPY, AND SIGNS/SYMPTOMS OF ADVERSE REACTIONS. MAY INSTRUCT AND REINFORCE MEDICATION TEACHING RELATED TO THE USE OF MEDICATIONS, DOSAGE, FREQUENCY, PURPOSE, SIDE EFFECTS, AND TO REPORT COMPLICATIONS. [code = MEDICATION MANAGEMENT; RN/EDUCATIONAL RESOURCE COORDINATOR/PROTOTYPE MODEL MAKER TO REVIEW MEDICATIONS FOR INTERACTIONS, EFFECTIVENESS OF DRUG THERAPY, AND SIGNS/SYMPTOMS OF ADVERSE REACTIONS. MAY INSTRUCT AND REINFORCE MEDICATION TEACHING RELATED TO THE USE OF MEDICATIONS, DOSAGE, FREQUENCY, PURPOSE, SIDE EFFECTS, AND TO REPORT COMPLICATIONS. ] Future Scheduled Test CARDIOVASC ULAR SYSTEM; RN TO ASSESS/TEACH, EDUCATIONAL RESOURCE COORDINATOR/PROTOTYPE MODEL MAKER TO OBSERVE/TEACH RELATED TO ALTERED CARDIOVASCULAR STATUS TO MINIMIZE COMPLICATIONS AND REDUCE HOSPITALIZATION. [code = CARDIOVASCULAR SYSTEM; RN TO ASSESS/TEACH, EDUCATIONAL RESOURCE COORDINATOR/PROTOTYPE MODEL MAKER TO OBSERVE/TEACH RELATED TO ALTERED CARDIOVASCULAR STATUS TO MINIMIZE COMPLICATIONS AND REDUCE HOSPITALIZATION.] Future Scheduled Test HEART FAIL URE; RN TO ASSESS/TEACH, EDUCATIONAL RESOURCE COORDINATOR/PROTOTYPE MODEL MAKER TO OBSERVE/TEACH CARDIOPULMONARY SYSTEM TO IDENTIFY SIGNS OF DECOMPENSATION AND INTERVENE TO MINIMIZE THE SEVERITY OF FLUID OVERLOAD. OBSERVE PATIENT ABILITY TO MONITOR AND RECORD DAILY WEIGHTS AND VITAL SIGNS, INCLUDING PULSE AND BLOOD PRESSURE; RECORD PATIENT REPORTED WEIGHT, OR WEIGH PATIENT NEEDED. REPORT INCREASED EDEMA OR WEIGHT GAIN OF >2 LBS IN 1 DAY OR >5 LBS IN 1 WEEK OR 5LBS OR MORE OVER TARGET WEIGHT. MAY MEASURE ABDOMINAL GIRTH IF UNABLE TO WEIGH. SCALES AND BP MONITOR TO BE PROVIDED IF NEEDED. [code = HEART FAILURE; RN TO ASSESS/TEACH, EDUCATIONAL RESOURCE COORDINATOR/PROTOTYPE MODEL MAKER TO OBSERVE/TEACH CARDIOPULMONARY SYSTEM TO IDENTIFY SIGNS OF DECOMPENSATION AND INTERVENE TO MINIMIZE THE SEVERITY OF FLUID OVERLOAD. OBSERVE PATIENT ABILITY TO MONITOR AND RECORD DAILY WEIGHTS AND VITAL SIGNS, INCLUDING PULSE AND BLOOD PRESSURE; RECORD PATIENT REPORTED WEIGHT, OR WEIGH PATIENT NEEDED. REPORT INCREASED EDEMA OR WEIGHT GAIN OF >2 LBS IN 1 DAY OR >5 LBS IN 1 WEEK OR 5LBS OR MORE OVER TARGET WEIGHT. MAY MEASURE ABDOMINAL GIRTH IF UNABLE TO WEIGH. SCALES AND BP MONITOR TO BE PROVIDED IF NEEDED.] Future Scheduled Test PAIN MANAG EMENT; RN TO ASSESS AND TEACH, PROTOTYPE MODEL MAKER/EDUCATIONAL RESOURCE COORDINATOR TO OBSERVE AND TEACH AND PROVIDE EDUCATION ON PAIN MANAGEMENT TECHNIQUES. [code = PAIN MANAGEMENT; RN TO ASSESS AND TEACH, PROTOTYPE MODEL MAKER/EDUCATIONAL RESOURCE COORDINATOR TO OBSERVE AND TEACH AND PROVIDE EDUCATION ON PAIN MANAGEMENT TECHNIQUES.] Future Scheduled Test FALL REDUC TION MANAGEMENT; RN TO ASSESS AND OBSERVE, EDUCATIONAL RESOURCE COORDINATOR/PROTOTYPE MODEL MAKER TO OBSERVE FALL RISK FACTORS AND EDUCATE PATIENT/CAREGIVER ON STRATEGIES TO MINIMIZE THE RISK OF FALLING. [code = FALL REDUCTION MANAGEMENT; RN TO ASSESS AND OBSERVE, EDUCATIONAL RESOURCE COORDINATOR/PROTOTYPE MODEL MAKER TO OBSERVE FALL RISK FACTORS AND EDUCATE PATIENT/CAREGIVER ON STRATEGIES TO MINIMIZE THE RISK OF FALLING.] Future Scheduled Test PHYSICAL T HERAPY EVALUATION PERFORMED. NO ADDITIONAL VISITS REQUIRED. PROVIDED SKILLED INTERVENTION INCLUDING STRENGTH, MOBILITY AND HOME SAFETY ASSESSMENT [code = PHYSICAL THERAPY EVALUATION PERFORMED. NO ADDITIONAL VISITS REQUIRED. PROVIDED SKILLED INTERVENTION INCLUDING STRENGTH, MOBILITY AND HOME SAFETY ASSESSMENT ] Goal Patient Goal - TO LOSE WEIGH T Goal Provider Goal - A PLAN OF CARE WILL BE ESTABLISHED THAT MEETS THE PATIENTS NEEDS. PATIENT WILL DEMONSTRATE OXYGEN SATURATION WITHIN NORMAL LIMITS OR PATIENTS OPTIMAL LEVEL ESTABLISHED BY THE PHYSICIAN THROUGHOUT CARE. CHANGES TO CO-MORBID CONDITIONS AND ANY NEW CONDITIONS WILL BE IDENTIFIED AND REPORTED TO THE PHYSICIAN. Goal Provider Goal - PATIENT/CAREGIVER WILL VERBALIZE UNDERSTANDING OF SIGNS AND SYMPTOMS THAT PUT THE PATIENT AT RISK FOR HOSPITALIZATION /EMERGENCY ROOM VISITS, WHEN TO NOTIFY NURSE/PHYSICIAN OF COMPLICATIONS/DECLINE AND WHEN TO CALL 911. Goal Provider Goal - PATIENT/CAREGIVER TO VERBALIZE, AND CONSISTENTLY DEMONSTRATE EFFECTIVE, SAFE MANAGEMENT OF MEDICATION INCLUDING KNOWLEDGE OF EFFECTIVENESS, POTENTIAL SIDE EFFECTS AND DRUG REACTIONS AND WHEN TO CONTACT THE APPROPRIATE CARE PROVIDER. PATIENT/CAREGIVER WILL BE ABLE TO VERBALIZE UNDERSTANDING OF MEDICATION REGIMEN AND ACCURATELY TAKE MEDICATIONS PRESCRIBED WITHOUT ADVERSE EFFECTS BY END OF EPISODE. Goal Provider Goal - PATIENT / CAREGIVER WILL VERBALIZE/DEMONSTRATE UNDERSTANDING OF MEASURES TO MANAGE ALTERED CARDIOVASCULAR STATUS BY 07/09/25 Goal Provider Goal - PATIENT / CAREGIVER WILL VERBALIZE/DEMONSTRATE AN ABILITY TO ADHERE TO SELF-MANAGEMENT OF HF TO MINIMIZE COMPLICATIONS AND AVOID HOSPITALIZATION BY END OF EPISODE. Goal Provider Goal - PATIENT / CAREGIVER WILL VERBALIZE / DEMONSTRATE UNDERSTANDING OF PAIN CONTROL MEASURES BY 07/09/25 Goal Provider Goal - PATIENT/CAREGIVER WILL VERBALIZE/DEMONSTRATE UNDERSTANDING OF FALL RISK FACTORS AND IMPLEMENT STRATEGIES TO MINIMIZE FALL RISK. PATIENT/CAREGIVER WILL VERBALIZE/DEMONSTRATE AN ABILITY TO ADHERE TO FALL REDUCTION SELF-MANAGEMENT AND LIFE-STYLE CHANGES BY 07/09/25 Goal Provider Goal - PATIENT / CAREGIVER WITHIN 1 VISIT WILL BE ABLE TO VERBALIZE / DEMONSTRATE UNDERSTANDING OF OBTAINING REASSESSMENT Encounters Start Date/Time End Date/Time Encounter Type Admission Type Attending [facility] Care Department Encounter ID Discharge Date Discharge Status Discharge Condition Discharge Reason Percent Goals Met 2025-05-11 00:00:00 2025-07-09 00:00:00 Outpatient NEW ADMISSION MARTÍN CORCORAN [facility] [id number] 40 .00
== END 2025-06-26 12:19 | disposition home or self-care (01) ==
PROVIDERS: PCP Internal Medicine Medical Oncology; Visit Provider Internal Medicine Cardiovascular Disease
PROC: (CPT 93312; principal; 2025-06-26 09:30)
DX: Q21.12 Patent foramen ovale (principal); I35.1 Nonrheumatic aortic (valve) insufficiency; I34.0 Nonrheumatic mitral (valve) insufficiency; I70.0 Atherosclerosis of aorta; I51.7 Cardiomegaly; G47.33 Obstructive sleep apnea (adult) (pediatric)
CPT/HCPCS: 93312; J2003; J2250; J2405; J2704

== ENCOUNTER → 2025-06-26 09:30 | Outpatient (BNV) | payer MEDICARE, MEDICAID, SELFPAY | PROVIDERS: PCP Internal Medicine Medical Oncology; Visit Provider Internal Medicine Cardiovascular Disease | DX: I34.0 Nonrheumatic mitral (valve) insufficiency (principal) | CPT/HCPCS: 76376; 93312; 93320; 93325 ==

== ENCOUNTER 2025-08-26 10:14 | Outpatient (AMB) | payer MEDICARE, MEDICAID, SELFPAY ==
--- NOTE | 2025-08-26 10:16 | A.OFFVIS_ITS ---
Vital Signs 08/26/25 10:17 Height 5 ft 6 in Weight 221 lb 9.033 oz BMI 35.8 BP 120/68 Blood Pressure Location Lt brachial Position Sitting Pulse 54 Pulse Source Pulse Oximeter Pulse Oximetry (%) 97 Oxygen Delivery Method Room Air Intake Visit Reasons: Obstructive sleep apnea Intake Note: pt is here for follow up of ALLISON and is wondering if he still needs to use oxygen with his cpap? [employer] Products Required: No Public Health Inspector: Public Health Inspector offered & declined Allergies No Known Allergies Allergy (Verified 08/26/25 10:20) Medication List - Last Reconciled 08/26/25 by Heena Felipe MD amlodipine 10 mg PO DAILY aspirin 81 mg PO DAILY atenolol 100 mg PO DAILY atorvastatin 40 mg PO BEDTIME clopidogrel 75 mg PO DAILY empagliflozin (Jardiance) 10 mg PO DAILY furosemide 40 mg See Protocol PO DAILY [id number] [id number] mcg (Centrum Silver Ultra Men's) 1 tab PO DAILY omega-3 fatty acids 1,000 mg PO DAILY spironolactone 25 mg See Protocol PO DAILY timolol maleate 0.5% 1 drp ophthalmic (eye) BID Do you need a note to return to daycare/school/sports/work: No HPI HPI Obstructive sleep apnea: Details: Earl is 65 years old gentleman, coming for his routine follow-up for his obstructive sleep apnea. He is happy going and claims to be feeling okay. Sleeps good with his CPAP and using it at least for 6-7 hours every night. He has nocturnal sleep apnea but currently he is not using oxygen at night thinking that he does not needed. He has no issue with the CPAP device. Congestive heart failure seems to be under control. [facility] Medical History TIA (transient ischemic attack) Hyperlipidemia CHF (congestive heart failure) Leg edema ALLISON (obstructive sleep apnea) Obesity (BMI 30-39.9) Surgical History No pertinent past surgical history Social History Household Members: Family Housing: House Are you a primary specialist wound care to a significant other at home: No Do you presently have visiting nurse or other home services: No Alcohol intake: never Patient Tobacco Use Status: Never used Tobacco Second Hand Smoke Exposure: No service: No Review of Systems Const All systems reviewed & are unremarkable except as noted in HPI and below Eyes Reports no additional complaints ENT Reports no additional complaints Card Denies chest pain, Denies irregular heart rhythm, Reports leg edema (Mild) and Denies dyspnea on exertion Resp Denies cough, Denies dyspnea on exertion and Denies wheezing GI Reports no additional complaints Reports no additional complaints Musc Reports no additional complaints Skin/Breast Reports system reviewed and no additional complaints, except as documented Neuro Reports no additional complaints Endo Reports no additional complaints Aller/Immun Reports no additional complaints and Denies wheezing Physical Exam No interval weight loss is noted Const General: healthy appearing, comfortable and no acute distress Orientation/consciousness: patient oriented x3 HEENT Head: Yes normal to inspection General nose exam: No nasal polyps present and No nasal discharge present Face and sinus: Yes sinuses nontender Mouth: oropharynx normal Throat: Yes posterior oropharynx normal Eyes General: appearance normal, both eyes and all related structures Neck Neck: Yes normal visual inspection, Yes no lymphadenopathy, Yes trachea midline and Yes no JVD Thyroid: Thyroid normal Chest Chest palpation & inspection: normal inspection of the chest, normal palpation of entire chest wall and no tenderness Resp Effort & Inspection: normal respiratory effort Auscultation: clear to auscultation bilaterally, no crackles and no wheezes Percussion: percussion normal Cardio Palpation: normal PMI Rate: regular rate Rhythm: regular rhythm Heart sounds: no gallops and no murmurs Peripheral pulses: Peripheral pulses 2+ throughout GI Palpation (GI): Soft to palpation, nontender, No hepatosplenomegaly present and no masses Auscultation: normal bowel sounds Back/Spine/Pelvis Thoracic/Lumbar Spine: thoracic and lumbar spine normal to inspection Skin General skin exam: no rashes or lesions noted Neuro General: patient oriented x3 and no focal motor deficits Cranial nerves: Yes CN's II-XII intact bilaterally Extrem General: Yes normal to inspection, Yes no calf tenderness and Yes edema (1 + pitting edema of legs ) Psych Appearance: grossly normal and well kempt Speech and movement: Normal speech and movement present Results Reviewed Results Reviewed: Compliance report for the last 30 nights is reviewed. He has used 30/30 nights,. 100% Average use it per night 6 hours 46 minutes. Pressure used mostly 10 cm and maximum 16 cm. There is only. mild air leak He has residual AHI of 8.1 which remains high. Assessment & Plan Assessment & Plan (1) Obesity (BMI 30-39.9): Comment: He remains grossly obese but has lost some weight since last visit BMI= 35.8 OTHERWISE HEALTHY LOOKING. Code(s): E66.9 - Obesity, unspecified Category: Medical Plan: Commended for losing weight and advised to continue watching his diet as well as diuretic therapy. (2) ALLISON (obstructive sleep apnea): Comment: He does have chronic obstructive sleep apnea. Also does have features of respiratory failure with nocturnal hypoxemia and CO2 retention. His compliance is good but there is some residual AHI, 8.1 Code(s): G47.33 - Obstructive sleep apnea (adult) (pediatric) Category: Medical Plan: Considering that he has hypoventilation syndrome and CO2 retention, with high residual AHI, I think he will do better with BiPAP setting . I a.m. requesting the DME supplier to adjust his pressure to 18/7 cm . (3) Obesity hypoventilation syndrome: Comment: He has mostly abdominal obesity. And tends to have hypoventilation, which is corrected by using the CPAP. But he has high AHI as noted above. Code(s): E66.2 - Morbid (severe) obesity with alveolar hypoventilation Category: Medical Plan: Changing the pressure setting to BiPAP 18/7 cm (4) Nocturnal hypoxemia: Comment: He does have nocturnal hypoxemia even with the use of CPAP. Overnight oximetry recording showed that his O2 sat was below 88% for 122 minutes. So he was prescribed oxygen 2 L/minute to use along with the CPAP. Today he told me that he is not using oxygen along with the CPAP at night, Code(s): G47.34 - Idiopathic sleep related nonobstructive alveolar hypoventilation Category: Medical Plan: I told him to use O2 2 L/minute along with the CPAP. Will check by overnight oximetry recording while he is using CPAP but on room air. Then will instruct him if he should continue to use O2 on a . Coding Level of Care Code Est Pt Level 3 (53785) Diagnoses Obesity (BMI 30-39.9) E66.9 ALLISON (obstructive sleep apnea) G47.33 Obesity hypoventilation syndrome E66.2 Nocturnal hypoxemia G47.34
[2025-08-26 10:17] VITALS: BP 120/68; PULSE 54; O2SAT 97; BMI 35.8
--- OUTSIDE RECORDS SUMMARY | 2025-08-26 11:22 | XMS_ITS | Clinical Summary ---
Author Organization [facility], Address [address] [place] [address] [place] [address] Phone Care Team Providers Care Fine Artist Name Role Phone Dev Murray MD Primary Care Provider [phone] Allergies Active Allergy Reactions Criticality Noted Date [...] patient's age to complete this topic Insurance [facility] Care Teams Fine Artist Relationship Specialty Start Date End Date Dev Murray MD [address] [place] [address] [phone] [place], [place] PCP - General Medical Oncology 08/19/20
--- OUTSIDE RECORDS SUMMARY | 2025-08-26 11:22 | XMS_ITS | Clinical Summary ---
Author Organization [facility] Address [address] [place] [address] Care Team Providers Care Cranberry Bog Supervisor Name Role Phone Unavailable Primary Care Provider [...] (2 of 2 - PCV) 03/20/2021 03/20/2020 Depression Screening 11/28/2024 COVID-19 Vaccine (1 - 2023-2 5 season) 2025 Influenza Vaccine (#1) 2025 RSV Immunization Adult [...]
== END 2025-08-26 10:33 | disposition home or self-care (01) ==
LOC: HO.HPS 10:15
PROVIDERS: PCP Internal Medicine Medical Oncology; Visit Provider Internal Medicine
DX: E66.9 Obesity, unspecified (principal); G47.33 Obstructive sleep apnea (adult) (pediatric); E66.2 Morbid (severe) obesity with alveolar hypoventilation; G47.34 Idiopathic sleep related nonobstructive alveolar hypoventilation
CPT/HCPCS: 99213

== ENCOUNTER → 2025-08-26 10:14 | Outpatient (BNVA) | payer MEDICARE, MEDICAID, SELFPAY | PROVIDERS: PCP Internal Medicine Medical Oncology; Visit Provider Internal Medicine | DX: G47.33 Obstructive sleep apnea (adult) (pediatric) (principal); E66.9 Obesity, unspecified; E66.01 Morbid (severe) obesity due to excess calories | CPT/HCPCS: 99212 ==

== ENCOUNTER 2025-10-10 09:37 | Outpatient (REF) | payer MEDICARE, MEDICAID, SELFPAY ==
[2025-10-10 10:54] LABS: VBG HCO3 27 mmol/L (22-26); VBG O2 % Saturation 91.0 %
[2025-10-10 10:55] LABS: Venous Blood Gas Refer to POC result
[2025-10-10 11:45] LABS: Alanine Aminotransferase 30 U/L (0-40); Albumin Level 4.6 g/dL (3.5-5.0); Alkaline Phosphatase 73 U/L (39-117); Anion Gap 12 (12-20); Aspartate Amino Transferase 26 U/L (5-37); Blood Urea Nitrogen 22 mg/dL (9-16); Calcium 10.1 mg/dL (8.4-10.2); Carbon Dioxide 27 mmol/L (22-29); Chloride 105 mmol/L (96-108); Cholesterol 186 mg/dL (<200); Estimated Glomerular Filt Rate 56; HDL Cholesterol 34 mg/dL (>40); Potassium 4.3 mmol/L (3.3-5.1); Sodium 140 mmol/L (135-145); Total Protein 8.1 g/dL (6.5-8.0); Triglycerides 240 mg/dL (<150)
== END 2025-10-10 09:38 | disposition home or self-care (01) ==
LOC: HO.LAB 09:37
PROVIDERS: PCP Internal Medicine Medical Oncology; Visit Provider Internal Medicine
DX: J96.12 Chronic respiratory failure with hypercapnia (principal); E66.2 Morbid (severe) obesity with alveolar hypoventilation; E78.5 Hyperlipidemia, unspecified; I50.31 Acute diastolic (congestive) heart failure
CPT/HCPCS: 36415; 80048; 80061; 80076; 82803; 99212

== ENCOUNTER 2025-10-10 09:37 | Outpatient (AMB) | payer MEDICARE, MEDICAID, SELFPAY ==
[2025-10-10 09:44] VITALS: BP 122/82; PULSE 48; O2SAT 97; BMI 36.3
--- NOTE | 2025-10-10 09:44 | MHC.OFFVIS ---
Vital Signs 10/10/25 09:44 Height 5 ft 6 in Weight 224 lb 13.944 oz BMI 36.3 BP 122/82 Blood Pressure Location Lt brachial Position Sitting Pulse 48 L Pulse Source Pulse Oximeter Pulse Oximetry (%) 97 Oxygen Delivery Method Room Air Intake Visit Reasons: Obstructive sleep apnea Intake Note: pt is here for follow up of ALLISON, Functional Analyst Required: No Permastone Installer: Permastone Installer offered & declined Allergies No Known Allergies Allergy (Verified 10/10/25 10:06) Medication List - Last Reconciled 10/10/25 by Heena Felipe MD amlodipine 10 mg PO DAILY aspirin 81 mg PO DAILY atenolol 100 mg PO DAILY atorvastatin 40 mg PO BEDTIME clopidogrel 75 mg PO DAILY empagliflozin (Jardiance) 10 mg PO DAILY furosemide 40 mg See Protocol PO DAILY [id number] mcg (Centrum Silver Ultra Men's) 1 tab PO DAILY omega-3 fatty acids 1,000 mg PO DAILY spironolactone 25 mg See Protocol PO DAILY timolol maleate 0.5% 1 drp ophthalmic (eye) BID Do you need a note to return to daycare/school/sports/work: No HPI HPI Obstructive sleep apnea: Details: This 65 years old gentleman, happy going, of simple mind is grossly obese and has diagnosis of obstructive sleep apnea/hypoventilation syndrome. He is being treated for chronic respiratory failure with nocturnal hypoxemia. He has cardiac problem with chronic congestive heart failure. Comes in for his routine pulmonary follow-up for sleep apnea. He claims that he is using the CPAP( actually on BiPAP settings of 18/7 cms . But he is not using O2 with BiPAP. He claims that he sleeps. Good and has no daytime sleepiness His weight remains unchanged and he is not expected to lose. [facility] Medical History TIA (transient ischemic attack) Hyperlipidemia CHF (congestive heart failure) Leg edema ALLISON (obstructive sleep apnea) Obesity (BMI 30-39.9) Surgical History No pertinent past surgical history Social History Household Members: Family Housing: House Are you a primary healthcare consultant to a significant other at home: No Do you presently have visiting nurse or other home services: No Alcohol intake: never Patient Tobacco Use Status: Never used Tobacco Second Hand Smoke Exposure: No service: No Review of Systems Const All systems reviewed & are unremarkable except as noted in HPI and below Eyes Reports no additional complaints ENT Reports no additional complaints Card Denies chest pain, Denies irregular heart rhythm, Reports leg edema (Mild) and Denies dyspnea on exertion Resp Denies cough, Denies dyspnea on exertion and Denies wheezing GI Reports no additional complaints Reports no additional complaints Musc Reports no additional complaints Skin/Breast Reports system reviewed and no additional complaints, except as documented Neuro Reports no additional complaints Endo Reports no additional complaints Aller/Immun Reports no additional complaints and Denies wheezing Physical Exam Vital Signs: Last Vital Signs Pulse 48 L 10/10/25 09:44 BP 122/82 10/10/25 09:44 Pulse Ox 97 10/10/25 09:44 Oxygen Delivery Method Room Air 10/10/25 09:44 BMI result Body Mass Index 36.3 No interval weight loss is noted Const General: healthy appearing, comfortable and no acute distress Orientation/consciousness: patient oriented x3 HEENT Head: Yes normal to inspection General nose exam: No nasal polyps present and No nasal discharge present Face and sinus: Yes sinuses nontender Mouth: oropharynx normal Throat: Yes posterior oropharynx normal Eyes General: appearance normal, both eyes and all related structures Neck Neck: Yes normal visual inspection, Yes no lymphadenopathy, Yes trachea midline and Yes no JVD Thyroid: Thyroid normal Chest Chest palpation & inspection: normal inspection of the chest, normal palpation of entire chest wall and no tenderness Resp Effort & Inspection: normal respiratory effort Auscultation: clear to auscultation bilaterally, no crackles and no wheezes Percussion: percussion normal Cardio Palpation: normal PMI Rate: regular rate Rhythm: regular rhythm Heart sounds: no gallops and no murmurs Peripheral pulses: Peripheral pulses 2+ throughout GI Palpation (GI): Soft to palpation, nontender, No hepatosplenomegaly present and no masses Auscultation: normal bowel sounds Back/Spine/Pelvis Thoracic/Lumbar Spine: thoracic and lumbar spine normal to inspection Skin General skin exam: no rashes or lesions noted Neuro General: patient oriented x3 and no focal motor deficits Cranial nerves: Yes CN's II-XII intact bilaterally Extrem General: Yes normal to inspection, Yes no calf tenderness and Yes edema (1 + pitting edema of legs ) Psych Appearance: grossly normal and well kempt Speech and movement: Normal speech and movement present Results Reviewed Results Reviewed: Compliance report for the last 21 nights is reviewed. He has used 21/21 nights,. 100% Average use it per night 6 hours 54 minutes. No significant air leak. He does have residual AHI of 9.8 Assessment & Plan Assessment & Plan (1) Obesity (BMI 30-39.9): Comment: He remains grossly obese .. He has not used to do any regular physical exercise or walk. Claims that he tries to watch his diet. He is a simple minded gentleman and is happy with current body habitus. Code(s): E66.9 - Obesity, unspecified Category: Medical Plan: I did advise him to limit the food intake and walk daily, try to lose at least 10 lb of weight. (2) Obesity hypoventilation syndrome: Comment: He has mostly abdominal obesity. And tends to have hypoventilation, which is corrected by using the BIPAP . But he has high AHI as noted above. Code(s): E66.2 - Morbid (severe) obesity with alveolar hypoventilation Category: Medical Plan: He is advised to keep on using BiPAP. Explained to him why BiPAP setting instead of CPAP. Advised to tighten the straps so that there is not much air leak. (3) Chronic hypercapnic respiratory failure: Comment: This patient having chronic hypoventilation syndrome due to gross obesity, has nocturnal hypoxemia as well as hypercapnia. Clinically seems to be controlled at this time, Venous blood gas test is ordered Code(s): J96.12 - Chronic respiratory failure with hypercapnia Category: Medical Plan: Explained to him why he needs use of BiPAP on a regular basis He also needs to use O2 along with the BiPAP, 1 L/minute (4) ALLISON (obstructive sleep apnea): Comment: He does have chronic obstructive sleep apnea. Also does have features of respiratory failure with nocturnal hypoxemia and CO2 retention. His compliance is good but there is some residual AHI, 9.4 Code(s): G47.33 - Obstructive sleep apnea (adult) (pediatric) Category: Medical Plan: As under chronic respiratory failure Orders: Orders Venous Blood Gas Today E66.2 - Morbid (severe) obesity with alveolar hypoventilation, G47.33 - Obstructive sleep apnea (adult) (pediatric) Coding Level of Care Code Est Pt Level 4 (22148) Diagnoses Obesity (BMI 30-39.9) E66.9 Obesity hypoventilation syndrome E66.2 Chronic hypercapnic respiratory failure J96.12 ALLISON (obstructive sleep apnea) G47.33
--- OUTSIDE RECORDS SUMMARY | 2025-10-10 11:05 | XMS_ITS | Clinical Summary ---
Author Organization [facility], Address [address] [place] [address] [place] [address] Phone Care Team Providers Care Sales Engagement Executive Name Role Phone Dev Murray MD Primary Care Provider [phone] Allergies Active Allergy Reactions Criticality Noted Date [...] complete this topic Insurance [facility] Care Teams Sales Engagement Executive Relationship Specialty Start Date End Date Dev Murray MD [address] [place] [address] [id number] [place], [place] PCP - General Medical Oncology 08/19/20
--- OUTSIDE RECORDS SUMMARY | 2025-10-10 11:06 | XMS_ITS | Clinical Summary ---
Author Organization [facility] ity Address [address] [place] [address] Care Team Providers Care Entry Level Marketing Representative Name Role Phone Unavailable Primary Care Provider [...] Depression Screening 11/28/2024 COVID-19 Vaccine (1 - 2024-2 6 season) 2025 Influenza Vaccine (#1) 2025 RSV [...]
== END 2025-10-10 10:03 | disposition home or self-care (01) ==
LOC: HO.HPS 09:37
PROVIDERS: PCP Internal Medicine Medical Oncology; Visit Provider Internal Medicine
DX: E66.9 Obesity, unspecified (principal); E66.2 Morbid (severe) obesity with alveolar hypoventilation; J96.12 Chronic respiratory failure with hypercapnia; G47.33 Obstructive sleep apnea (adult) (pediatric)
CPT/HCPCS: 99214

== ENCOUNTER 2025-10-15 13:34 | Outpatient (AMB) | payer MEDICARE, MEDICAID, SELFPAY ==
--- NOTE | 2025-10-15 13:41 | A.OFFVIS_ITS ---
Vital Signs 10/15/25 13:43 Height 5 ft 6 in Weight 224 lb 13.944 oz BMI 36.3 BP 136/70 Blood Pressure Location Lt brachial Position Sitting Pulse 58 Pulse Source Pulse Oximeter Intake Visit Reasons: 3+ mth f/up r/s 09-17-25 Accompanied by: Self / Same As Patient Allergies No Known Allergies Allergy (Verified 10/15/25 13:46) HPI Comments Details: This is a 65-year-old male patient coming in for a follow-up visit. Patient with a history of hypertension, sleep apnea, obesity, and HFpEF. Back in April, patient was in the hospital for TIA with an echo that showed a possible PFO and therefore underwent a MAYE and a cardiac event monitor. Today, patient is reporting feeling well overall without any cardiac symptoms of chest pain, shortness of breath, palpitations, dizziness, orthopnea, PND, leg edema, presyncope, or syncope. Patient is reporting compliance with all his medications. [facility] Medical History (Updated 10/15/25 @ 15:57 by Rishi Reardon NP) Acute heart failure with preserved ejection fraction TIA (transient ischemic attack) Hyperlipidemia CHF (congestive heart failure) Leg edema ALLISON (obstructive sleep apnea) Obesity (BMI 30-39.9) Surgical History No pertinent past surgical history Social History Household Members: Family Housing: House Are you a primary child care lead teacher to a significant other at home: No Do you presently have visiting nurse or other home services: No Alcohol intake: never Patient Tobacco Use Status: Never used Tobacco Second Hand Smoke Exposure: No service: No Review of Systems Const Denies daytime sleepiness, Denies difficulty sleeping, Denies snoring, Denies stops breathing during sleep and Denies weakness Card Denies chest pain, Denies rapid heart rate, Denies irregular heart rhythm, Denies claudication, Denies leg edema, Denies lightheadedness, Denies palpitations, Denies dyspnea, Denies dyspnea on exertion, Denies orthopnea, Denies paroxysmal nocturnal dyspnea and Denies slow heart rate Resp Denies cough, Denies dyspnea, Denies dyspnea on exertion and Denies snoring GI Reports no additional complaints, Denies hematochezia, Denies change in stool character and Denies dyspepsia Musc Denies abnormal gait, Denies muscle weakness and Denies numbness Neuro Denies abnormal gait, Denies numbness and Denies weakness Endo Denies palpitations Physical Exam Vital Signs: Last Vital Signs Pulse 58 10/15/25 13:43 BP 136/70 10/15/25 13:43 BMI result Body Mass Index 36.3 Const General: cooperative, healthy appearing, comfortable and no acute distress Orientation/consciousness: patient oriented x3 HEENT Head: Yes normal to inspection Neck Neck: Yes normal visual inspection, Yes trachea midline and Yes supple Chest Chest palpation & inspection: normal inspection of the chest Resp Effort & Inspection: normal respiratory effort Auscultation: clear to auscultation bilaterally, no crackles, no rales, no rhonchi and no wheezes Cardio Jugular venous distension: no JVD Palpation: normal PMI Rate: regular rate Rhythm: regular rhythm Heart sounds: S1 normal heart sound present, S2 normal heart sound present, no click, no gallops, no murmurs and no rubs Peripheral pulses: Peripheral pulses 2+ throughout GI Inspection: Yes normal to inspection Palpation (GI): Soft to palpation Auscultation: normal bowel sounds Skin General skin exam: no rashes or lesions noted Neuro General: patient oriented x3 Extrem General: Yes normal to inspection, No no pedal edema and No calf tenderness Psych Appearance: grossly normal Mental Status: mental status grossly normal Speech and movement: Normal speech and movement present Assessment & Plan Assessment & Plan (1) TIA (transient ischemic attack): Code(s): G45.9 - Transient cerebral ischemic attack, unspecified Category: Medical Plan: Back in April, patient was noted to have a TIA. CTA head and neck showed right ICA ophthalmic segment 50% stenosis due to calcified plaque. MRI brain was normal. On the TTE, question of possible PFO. Therefore patient underwent a MAYE and given his multiple risk factors, patient underwent a cardiac event monitor. 06/26/2025-patient underwent a MAYE that showed no intracardiac shunting. It also showed a normal LVEF with an ejection fraction between 60-65% with mild aortic and mitral regurgitation, and mild atherosclerotic disease in the ascending aorta. 06/10/2025-cardiac even monitor showed underlying sinus rhythm with predominant sinus bradycardia and occasional isolated PVCs. Patient with no recurrence of TIAs. Continue aspirin, Plavix, and statin therapy. Discussed implantable loop recorder however patient would like to wait on this for now. We decided that if any recurrence of neurological symptoms, then we will proceed with the loop recorder. Patient verbalizes understanding. (2) (HFpEF) heart failure with preserved ejection fraction: Code(s): I50.30 - Unspecified diastolic (congestive) heart failure Category: Medical Plan: Clinically stable and euvolemic. Continue current regimen of Jardiance, Lasix, spironolactone, amlodipine, and atenolol. Discussed signs and symptoms to watch for with heart failure. Advised on low-salt diet, daily weight monitoring, compression socks as needed. (3) Hyperlipidemia: Code(s): E78.5 - Hyperlipidemia, unspecified Category: Medical Plan: Most recent LDL at 104. PCP increased his atorvastatin to 80 mg daily. Continue the same with an LDL goal less than 70. Advised on heart healthy diet. (4) ALLISON (obstructive sleep apnea): Comment: He does have chronic obstructive sleep apnea. Also does have features of respiratory failure with nocturnal hypoxemia and CO2 retention. His compliance is good but there is some residual AHI, 9.4 Code(s): G47.33 - Obstructive sleep apnea (adult) (pediatric) Category: Medical Plan: Continue CPAP therapy. Follow up by pulmonology. Advised on heart healthy diet, regular exercise, losing weight, med compliance, and aggressive management of vascular risk factors. Follow up in 6 months. In the interim, patient will call the office with any concerns or change in symptoms. This note was generated using voice recognition software. While every effort has been made to ensure accuracy and proper wool hat finisher, there may be occasional errors that could affect the content or meaning of the described symptoms. Coding Level of Care Code Est Pt Level 4 (52316) Complex EM visit Add On G2211 Diagnoses TIA (transient ischemic attack) G45.9 (HFpEF) heart failure with preserved ejection fraction I50.30 Hyperlipidemia E78.5 ALLISON (obstructive sleep apnea) G47.33 Time Spent (min) 32 Comment Time spent in reviewing the chart, test results, assessment, counseling and documentation.
[2025-10-15 13:43] VITALS: BP 136/70; PULSE 58; BMI 36.3
== END 2025-10-15 14:06 | disposition home or self-care (01) ==
LOC: HO.HCS 13:34
PROVIDERS: PCP Internal Medicine Medical Oncology
DX: G45.9 Transient cerebral ischemic attack, unspecified (principal); I50.30 Unspecified diastolic (congestive) heart failure; E78.5 Hyperlipidemia, unspecified; G47.33 Obstructive sleep apnea (adult) (pediatric)
CPT/HCPCS: 99214; G2211

== ENCOUNTER → 2025-10-15 13:34 | Outpatient (BNVA) | payer MEDICARE, MEDICAID, SELFPAY | PROVIDERS: PCP Internal Medicine Medical Oncology | DX: I50.30 Unspecified diastolic (congestive) heart failure (principal); G47.33 Obstructive sleep apnea (adult) (pediatric); Z99.89 Dependence on other enabling machines and devices; E78.5 Hyperlipidemia, unspecified; G45.9 Transient cerebral ischemic attack, unspecified | CPT/HCPCS: 99212 ==